=== PATIENT | female | born 1990 | race Caucasian/White ===

== ENCOUNTER 2020-03-21 23:31 | Emergency (ER) | payer SELFPAY ==
[~2020-03-21] VITALS: Ht 160 cm; Wt 106.8 kg
[~2020-03-21 23:31] MED LIST: CEPH500T PO; Depo Provera; PHEN-639 PO; SULF1TAB35 PO
--- OUTSIDE RECORDS SUMMARY | 2020-03-21 23:39 | XMS REPORT ---
Author Author Cari Gutierrez Doctor Organization [facility] Address Unknown Phone Unavailable Care Team Providers Care Prison Warden Name Role Phone Migration, Doctor Unavailable Unavailable PROBLEMS Type Condition ICD9-CM Code MOH24-OR Code Onset Dates Condition S tatus SNOMED Code Problem Non morbid obesity due to excess calories E66.09 Active 789815453 Problem PTSD (post-traumatic stress disorder) F43.10 Active 21285623 Problem Anxiety disorder, unspecified type F41.9 Active 943113115 Problem Attention deficit hyperactiv ity disorder (ADHD), predominantly inattentive type F90.0 Active 03621993 Problem Anxiety F41.9 Active 84872946 Problem Binge eating R63.2 Active 3972433 05 Problem Moderate episode of recurrent major depressive disorder F33.1 Active 767973314 Problem Binge eating disorder F50.81 Active 617686673 ALLERGIES No Information ENCOUNTERS Encounter Location Date Diagnosis [facility] [id number] [place] [address] Aug, [facility] [address] [place] [address] 9 Jun, [facility] [id number] [place] [address] Jun, PTSD (post-traumatic stress disorder) F4 3.10 ; Moderate episode of recurrent major depressive disorder F33.1 ; Binge eating disorder F50.81 ; Attention deficit hyperactivity disorder (ADHD), predominantly inattentive type F90.0 and 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 Z79.899 [place] [address] [place] [address]86[address]446 9 May, [facility] [address] [place] [address] 9 Apr, [place] [address] [place] [address] 9 Nov, Attention deficit hyperactivity disorder (ADHD), predominantly inattentive type F90.0 and Moderate episode of recurrent major depressive disorder F33.1 [facility] [address] [place] [id number] [address] Sep, Moderate episode of recurrent major depressive disorder F33.1 ; Anxiety F41.9 and Attention deficit hyperactivity disorder (ADHD), predominantly inattentive type F90.0 [facility] [address] [place] [id number] [address] Sep, Acute otitis media, right H66.91 and Dysfunction of left eustachian tube H69.82 [address] [address] [address] Apr, Cervicalgia M54.2 ; Screening for thyroi d disorder Z13.29 and Screening for diabetes mellitus Z13.1 [place] [address] [address] Apr, PTSD (post-traumatic stress disorder) F4 3.10 ; Moderate episode of recurrent major depressive disorder F33.1 ; Binge eating disorder F50.81 and Attention deficit hyperactivity disorder (ADHD), predominantly inattentive type F90.0 [place] [address] [address] Feb, PTSD (post-traumatic stress disorder) F4 3.10 ; Moderate episode of recurrent major depressive disorder F33.1 ; Binge eating disorder F50.81 and Attention deficit hyperactivity disorder (ADHD), predominantly inattentive type F90.0 [place] [address] [address] Feb, PTSD (post-traumatic stress disorder) F4 3.10 [place] [address] [address] January, PTSD (post-traumatic stress disorder) F4 3.10 ; Moderate episode of recurrent major depressive disorder F33.1 ; Binge eating disorder F50.81 and Attention deficit hyperactivity disorder (ADHD), predominantly inattentive type F90.0 [place] [address] [address] January, PTSD (post-traumatic stress disorder) F4 3.10 [place] [address] [address] Dec, PTSD (post-traumatic stress disorder) F4 3.10 ; Moderate episode of recurrent major depressive disorder F33.1 ; Binge eating disorder F50.81 ; Attention deficit hyperactivity disorder (ADHD), predominantly inattentive type F90.0 and Anxiety disorder, unspecified type F41.9 [place] [address] [address] Nov, PTSD (post-traumatic stress disorder) F4 3.10 [place] [address] [address] Aug, [place] [address] [address] Aug, PTSD (post-traumatic stress disorder) F4 3.10 ; Moderate episode of recurrent major depressive disorder F33.1 ; Binge eating disorder F50.81 ; Attention deficit hyperactivity disorder (ADHD), predominantly inattentive type F90.0 and Anxiety disorder, unspecified type F41.9 [place] [address] [address] Jul, PTSD (post-traumatic stress disorder) F4 3.10 ; Moderate episode of recurrent major depressive disorder F33.1 ; Binge eating disorder F50.81 ; Attention deficit hyperactivity disorder (ADHD), predominantly inattentive type F90.0 and Anxiety disorder, unspecified type F41.9 [place] [address] [address] Jun, PTSD (post-traumatic stress disorder) F4 3.10 ; Moderate episode of recurrent major depressive disorder F33.1 ; Binge eating disorder F50.81 ; Attention deficit hyperactivity disorder (ADHD), predominantly inattentive type F90.0 and Anxiety disorder, unspecified type F41.9 [place] [id number] [place] [address] May, Attention deficit hyperactivity disorder (ADHD), predominantly inattentive type F90.0 [place] [address] [address] Apr, PTSD (post-traumatic stress disorder) F4 3.10 ; Moderate episode of recurrent major depressive disorder F33.1 ; Binge eating disorder F50.81 ; Attention deficit hyperactivity disorder (ADHD), predominantly inattentive type F90.0 and Anxiety disorder, unspecified type F41.9 [place] [address] [address] Apr, PTSD (post-traumatic stress disorder) F4 3.10 ; Moderate episode of recurrent major depressive disorder F33.1 and Binge eating disorder F50.81 [place] [address] [address] Mar, Moderate episode of recurrent major depr essive disorder F33.1 [place] [address] [address] January, Moderate episode of recurrent major depr essive disorder F33.1 [place] [address] [address] Dec, Anxiety F41.9 ; Binge eating R63.2 and N on morbid obesity due to excess calories E66.09 [place] [address] [address] Sep, PTSD (post-traumatic stress disorder) F4 3.10 ; Non morbid obesity due to excess calories E66.09 and Weight gain R63.5 [place] [id number] [place] [address] Sep, [facility] [address] [facility] [id number] [place] [address] January, Fecal impaction of colon K56 .41 [place] [address] [address] Apr, Dysthymia 300.4 [place] [address] [address] Mar, [place] [address] [address] January, [facility] [address] [id number] [place] [address] Dec, [facility] [address] [id number] [place] [address] Dec, [facility] [address] [id number] [place] [address] Oct, [facility] [address] [id number] [place] [address] Oct, [facility] [address] [id number] [place] [address] Jul, [facility] [address] [id number] [place] [address] Jul, [facility] [address] [id number] [place] [address] Apr, [facility] [address] [id number] [place] [address] Apr, [facility] [address] [id number] [place] [address] Mar, [facility] [address] [id number] [place] [address] Mar, [facility] [address] [id number] [place] [address] Mar, [facility] [address] [id number] [place] [address] Mar, [facility] [address] [id number] [place] [address] Mar, [facility] [address] [id number] [place] [address] Mar, [facility] [address] [id number] [place] [address] Feb, [facility] [address] [id number] [place] [address] Dec, [facility] [address] [id number] [place] [address] Dec, [facility] [address] [id number] [place] [address] Nov, [facility] [address] [id number] [place] [address] Sep, [facility] [id number] [place] [address] Sep, [facility] [id number] [place] [address] Apr, [facility] [id number] [place] [address] Dec, [facility] [id number] [place] [address] Nov, [facility] [id number] [place] [address] Jul, [facility] [id number] [place] [address] Jul, [facility] [id number] [place] [address] January, [facility] [id number] [place] [address] January, [facility] [id number] [place] [address] Dec, [facility] [id number] [place] [address] Sep, IMMUNIZATIONS No Known Immunizations SOCIAL HISTORY Never Assessed REASON FOR VISIT PLAN OF CARE VITAL SIGNS MEDICATIONS Unknown Medications RESULTS No Results PROCEDURES No Known procedures INSTRUCTIONS MEDICATIONS ADMINISTERED No Known Medications MEDICAL (GENERAL) HISTORY Type Description Date Medical History depression Medical History PTSD Medical History obesity Medical History denies any hx of heart problem or seizur e 05/14/17 Medical History hx of anemia Surgical History No Surgical history information Hospitalization History childbirth only Hospitalization History Denies any past psych hospitalizatio n
--- OUTSIDE RECORDS SUMMARY | 2020-03-21 23:39 | XMS REPORT ---
Author Author Cari GARCIA Organization [facility] Address [address] [address] Care Team Providers Care Bus Inspector Name Role Phone ANTONIO GARCIA Unavailable PROBLEMS Type Condition ICD9-CM Code ZIN39-NG Code Onset Dates Condition S tatus SNOMED Code Problem Non morbid obesity due to excess calories E66.09 Active 523829176 Problem PTSD (post-traumatic stress disorder) F43.10 Active 29109254 Problem Anxiety disorder, unspecified type F41.9 Active 124550096 Problem Attention deficit hyperactiv ity disorder (ADHD), predominantly inattentive type F90.0 Active 62183780 Problem Anxiety F41.9 Active 52457011 Problem Binge eating R63.2 Active 7718819 05 Problem Moderate episode of recurrent major depressive disorder F33.1 Active 247326090 Problem Binge eating disorder F50.81 Active 566684030 ALLERGIES No Known Allergies ENCOUNTERS Encounter Location Date Diagnosis [place] [address] [place] [address] Nov, [facility] [place] [id number] [place] [address] Aug, [facility] [address] [place] [address] 9 Jun, [facility] [place] [address] [address] Jun, PTSD (post-traumatic stress disorder) F4 3.10 ; Moderate episode of recurrent major depressive disorder F33.1 ; Binge eating disorder F50.81 ; Attention deficit hyperactivity disorder (ADHD), predominantly inattentive type F90.0 and Other residential (current) drug therapy Z79.899 [address] [place] [address] May, [address] [place] [place] [id number] [address] Apr, [facility] [address] [place] [address] Nov, Attention deficit hyperactivity disorder (ADHD), predominantly inattentive type F90.0 and Moderate episode of recurrent major depressive disorder F33.1 [facility] [address] [id number] [address] Sep, Moderate episode of recurrent major depressive disorder F33.1 ; Anxiety F41.9 and Attention deficit hyperactivity disorder (ADHD), predominantly inattentive type F90.0 [facility] [address] [place] [id number] [address] Sep, Acute otitis media, right H66.91 and Dysfunction of left eustachian tube H69.82 [place] [address] [address] [address] Apr, Cervicalgia M54.2 ; Screening for thyroi d disorder Z13.29 and Screening for diabetes mellitus Z13.1 [place] [address] [address] Apr, PTSD (post-traumatic stress disorder) F4 3.10 ; Moderate episode of recurrent major depressive disorder F33.1 ; Binge eating disorder F50.81 and Attention deficit hyperactivity disorder (ADHD), predominantly inattentive type F90.0 [address] [address] [address] Feb, PTSD (post-traumatic stress disorder) F4 3.10 ; Moderate episode of recurrent major depressive disorder F33.1 ; Binge eating disorder F50.81 and Attention deficit hyperactivity disorder (ADHD), predominantly inattentive type F90.0 [address] [address] [address] Feb, PTSD (post-traumatic stress disorder) F4 3.10 [address] [address] [address] January, PTSD (post-traumatic stress disorder) F4 3.10 ; Moderate episode of recurrent major depressive disorder F33.1 ; Binge eating disorder F50.81 and Attention deficit hyperactivity disorder (ADHD), predominantly inattentive type F90.0 [address] [address] [address] January, PTSD (post-traumatic stress disorder) F4 3.10 [address] [address] [address] Dec, PTSD (post-traumatic stress disorder) F4 3.10 ; Moderate episode of recurrent major depressive disorder F33.1 ; Binge eating disorder F50.81 ; Attention deficit hyperactivity disorder (ADHD), predominantly inattentive type F90.0 and Anxiety disorder, unspecified type F41.9 [address] [address] [address] Nov, PTSD (post-traumatic stress disorder) F4 3.10 [address] [address] [address] Aug, [address] [address] [address] Aug, PTSD (post-traumatic stress disorder) F4 3.10 ; Moderate episode of recurrent major depressive disorder F33.1 ; Binge eating disorder F50.81 ; Attention deficit hyperactivity disorder (ADHD), predominantly inattentive type F90.0 and Anxiety disorder, unspecified type F41.9 [address] [address] [address] Jul, PTSD (post-traumatic stress disorder) F4 3.10 ; Moderate episode of recurrent major depressive disorder F33.1 ; Binge eating disorder F50.81 ; Attention deficit hyperactivity disorder (ADHD), predominantly inattentive type F90.0 and Anxiety disorder, unspecified type F41.9 [place] [address] [address] Jun, PTSD (post-traumatic stress disorder) F4 3.10 ; Moderate episode of recurrent major depressive disorder F33.1 ; Binge eating disorder F50.81 ; Attention deficit hyperactivity disorder (ADHD), predominantly inattentive type F90.0 and Anxiety disorder, unspecified type F41.9 [address] [address] [address] May, Attention deficit hyperactivity disorder (ADHD), predominantly inattentive type F90.0 [address] [address] [address] Apr, PTSD (post-traumatic stress disorder) F4 3.10 ; Moderate episode of recurrent major depressive disorder F33.1 ; Binge eating disorder F50.81 ; Attention deficit hyperactivity disorder (ADHD), predominantly inattentive type F90.0 and Anxiety disorder, unspecified type F41.9 [address] [address] [address] 16 Apr, 2017 PTSD (post-traumatic stress disorder) F4 3.10 ; Moderate episode of recurrent major depressive disorder F33.1 and Binge eating disorder F50.81 [place] [address] [address] Mar, Moderate episode of recurrent major depr essive disorder F33.1 [place] [address] [address] January, Moderate episode of recurrent major depr essive disorder F33.1 [place] [address] [address] Dec, Anxiety F41.9 ; Binge eating R63.2 and N on morbid obesity due to excess calories E66.09 [place] [address] [address] Sep, PTSD (post-traumatic stress disorder) F4 3.10 ; Non morbid obesity due to excess calories E66.09 and Weight gain R63.5 [address] [address] [address] Sep, [facility] [address] [facility] [id number] [place] [address] January, Fecal impaction of colon K56 .41 [address] [address] [address] Apr, Dysthymia 300.4 [facility] [address] [id number] [place] [address] Mar, [facility] [address] [id number] [place] [address] January, [facility] [address] [id number] [place] [address] Dec, [facility] [address] [id number] [place] [address] Dec, [facility] [address] [id number] [place] [address] Oct, [facility] [address] [id number] [place] [address] Oct, [facility] [address] [id number] [place] [address] Jul, [facility] [address] [id number] [place] [address] Jul, [facility] [address] [id number] [place] [address] Apr, [facility] [address] [id number] [place] [address] Apr, [facility] [address] [id number] [place] [address] Mar, [facility] [address] [id number] [place] [address] Mar, [facility] [address] [id number] [place] [address] Mar, [facility] [address] [id number] [place] [address] Mar, [facility] [address] [id number] [place] [address] Mar, [facility] [address] [id number] [place] [address] Mar, [facility] [address] [id number] [place] [address] Feb, [facility] [place] [id number] [place] [address] Dec, [facility] [place] [id number] [place] [address] Dec, [facility] [place] [id number] [place] [address] Nov, [facility] [place] [id number] [place] [address] Sep, [facility] [place] [id number] [place] [address] Sep, [facility] [place] [id number] [place] [address] Apr, [facility] [place] [id number] [place] [address] Dec, [facility] [place] [id number] [place] [address] Nov, [facility] [place] [id number] [place] [address] Jul, [facility] [place] [id number] [place] [address] Jul, [facility] [place] [id number] [place] [address] January, [facility] [place] [id number] [place] [address] January, [facility] [place] [id number] [place] [address] Dec, [facility] [place] [id number] [place] [address] Sep, IMMUNIZATIONS No Known Immunizations SOCIAL HISTORY Never Assessed REASON FOR VISIT Medication Refill, MEd refill, discuss increasing Concerta. MEGHANA Johnson PLAN OF CARE Activity Details Follow Up 3 Months Reason:med mgmt VITAL SIGNS Height 64 in 2018-12-06 Weight 227 lbs 2018-12-06 Temperature 98.2 degrees Fahrenheit 2018-12-06 Heart Rate 80 bpm 2018-12-06 Respiratory Rate 16 2018-12-06 BMI 38.96 kg/m2 2018-12-06 Blood pressure systolic 124 mmHg 2018-12-06 Blood pressure diastolic 72 mmHg 2018-12-06 MEDICATIONS Medication Instructions Dosage Frequency Start Date End Date Duration S tatus Concerta 36 MG Orally Once a day 1 tablet in the morning 24h Nov, 28 days Active Effexor XR 75 MG Orally Once a day 1 capsule with food 24h 30 Active RESULTS No Results PROCEDURES No Known procedures [...]
--- OUTSIDE RECORDS SUMMARY | 2020-03-21 23:39 | XMS REPORT ---
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 Name Role Phone Migration, Doctor Unavailable Unavailable PROBLEMS Type Condition ICD9-CM Code [id number] Code Onset Dates Condition S tatus SNOMED Code Problem PTSD (post-traumatic stress disorder) F43.10 Active 62591153 Problem Anxiety F41.9 Active 63160742 Problem Body mass index (BMI) 40.0-44.9, adult Z68.41 Active 679572534 Problem Morbid (severe) obesity due to excess calories E66 .01 Active 298705721 Problem Moderate episode of recurrent major depressive disorder F33.1 Active 959342530 Problem Binge eating disorder F50.81 Active 904695861 Problem Attention deficit hyperactiv ity disorder (ADHD), predominantly inattentive type F90.0 Active 62533781 Problem Gastroesophageal reflux disease, esophagitis pre sence not specified K21.9 Active 814959755 ALLERGIES No Information ENCOUNTERS Encounter Location Date Diagnosis [facility] [address] [facility] [id number] [address] [place] [address] Mar, [facility] [address] [facility] [id number] [place] [address] Feb, Fatigue, unspecified type R53.83 [facility] [address] [id number] [place] [address] Feb, Morbid (severe) obesity due to excess calories E66.01 and Fatigue, unspecified type R53.83 [facility] [id number] [place] [address] 02 Feb, 2020 Moderate episode of recurrent major depressive disorder F33.1 ; Binge eating disorder F50.81 ; PTSD (post-traumatic stress disorder) F43.10 ; Encounter for Depo-Provera contraception Z30.42 ; Morbid (severe) obesity due to excess calories E66.01 ; Body mass index (BMI) 40.0-44.9, adult Z68.41 ; Fatigue, unspecified type R53.83 ; Depo-Provera contraceptive status Z30.42 and Gastroesophageal reflux disease, esophagitis presence not specified K21.9 [facility] [address] [facility] [id number] [address] [place] [phone] Dec, Cough R05 [facility] [address] [place], [place] [id number] [place] [phone] Nov, [facility] [address] [place] [id number] [address] [place] [phone] Aug, [facility] [address] [place] [id number] [place] [phone] Jun, [facility] [id number] [place] [phone] Jun, PTSD (post-traumatic stress disorder) F43.10 ; Moderate episode of recurrent major depressive disorder F33.1 ; Binge eating disorder F50.81 ; Attention deficit hyperactivity disorder (ADHD), predominantly inattentive type F90.0 and 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 [facility] [address] [place] [id number] [place] [phone] May, [facility] [address] [place] [id number] [place] [phone] Apr, [facility] [address] [facility] [id number] [place] [phone] Nov, Attention deficit hyperactivity disorder (ADHD), predominantly inattentive type F90.0 and Moderate episode of recurrent major depressive disorder F33.1 [facility] [address] [place], [place] [id number] [place] [phone] Sep, Moderate episode of recurrent major depr essive disorder F33.1 ; Anxiety F41.9 and Attention deficit hyperactivity disorder (ADHD), predominantly inattentive type F90.0 [facility] [address] [place], [place] [id number] [place] [phone] Sep, Acute otitis media, right H66.91 and Dys function of left eustachian tube H69.82 [place] [address] [facility] [id number] [address] [place] [phone] Apr, Cervicalgia M54.2 ; Screenin g for thyroid disorder Z13.29 and Screening for diabetes mellitus Z13.1 [place] [address] [place] [id number] [address] [place] [phone] Apr, PTSD (post-traumatic stress disorder) F43.10 ; Moderate episode of recurrent major depressive disorder F33.1 ; Binge eating disorder F50.81 and Attention deficit hyperactivity disorder (ADHD), predominantly inattentive type F90.0 [place] [address] [place] [id number] [address] [place] [phone] Feb, PTSD (post-traumatic stress disorder) F43.10 ; Moderate episode of recurrent major depressive disorder F33.1 ; Binge eating disorder F50.81 and Attention deficit hyperactivity disorder (ADHD), predominantly inattentive type F90.0 [place] [address] [place] [id number] [address] [place] [phone] Feb, PTSD (post-traumatic stress disorder) F43.10 [place] [address] [place] [id number] [address] [place] [phone] January, PTSD (post-traumatic stress disorder) F43.10 ; Moderate episode of recurrent major depressive disorder F33.1 ; Binge eating disorder F50.81 and Attention deficit hyperactivity disorder (ADHD), predominantly inattentive type F90.0 [place] [address] [place] [id number] [address] [place] [phone] January, PTSD (post-traumatic stress disorder) F43.10 [place] [address] [place] [id number] [address] [place] [phone] Dec, PTSD (post-traumatic stress disorder) F43.10 ; Moderate episode of recurrent major depressive disorder F33.1 ; Binge eating disorder F50.81 ; Attention deficit hyperactivity disorder (ADHD), predominantly inattentive type F90.0 and Anxiety disorder, unspecified type F41.9 [place] [address] [place] [id number] [address] [place] [phone] Nov, PTSD (post-traumatic stress disorder) F43.10 [place] [address] [place] [id number] [address] [place] [phone] Aug, [place] [address] [place] [id number] [address] [place] [phone] Aug, PTSD (post-traumatic stress disorder) F43.10 ; Moderate episode of recurrent major depressive disorder F33.1 ; Binge eating disorder F50.81 ; Attention deficit hyperactivity disorder (ADHD), predominantly inattentive type F90.0 and Anxiety disorder, unspecified type F41.9 [place] [address] [address] Jul, PTSD (post-traumatic stress disorder) F43.10 ; Moderate episode of recurrent major depressive disorder F33.1 ; Binge eating disorder F50.81 ; Attention deficit hyperactivity disorder (ADHD), predominantly inattentive type F90.0 and Anxiety disorder, unspecified type F41.9 [place] [address] [place] [id number] [address] [place] [phone] Jun, PTSD (post-traumatic stress disorder) F43.10 ; Moderate episode of recurrent major depressive disorder F33.1 ; Binge eating disorder F50.81 ; Attention deficit hyperactivity disorder (ADHD), predominantly inattentive type F90.0 and Anxiety disorder, unspecified type F41.9 [place] [address] [place] [id number] [address] [place] [phone] May, Attention deficit hyperactiv ity disorder (ADHD), predominantly inattentive type F90.0 [place] [address] [place] [id number] [address] [place] [phone] Apr, PTSD (post-traumatic stress disorder) F43.10 ; Moderate episode of recurrent major depressive disorder F33.1 ; Binge eating disorder F50.81 ; Attention deficit hyperactivity disorder (ADHD), predominantly inattentive type F90.0 and Anxiety disorder, unspecified type F41.9 [place] [address] [place] [id number] [address] [place] [phone] Apr, PTSD (post-traumatic stress disorder) F43.10 ; Moderate episode of recurrent major depressive disorder F33.1 and Binge eating disorder F50.81 [facility] [address] [facility] [id number] [address] [place] [phone] Mar, Moderate episode of recurren t major depressive disorder F33.1 [facility] [address] [place] [id number] [address] [place] [phone] January, Moderate episode of recurren t major depressive disorder F33.1 [facility] [address] [facility] [id number] [address] [place] [phone] Dec, Anxiety F41.9 ; Binge eating R63.2 and Non morbid obesity due to excess calories E66.09 [facility] [address] [place] [id number] [address] [place] [phone] Sep, PTSD (post-traumatic stress disorder) F43.10 ; Non morbid obesity due to excess calories E66.09 and Weight gain R63.5 [facility] [address] [place] [id number] [address] [place] [phone] Sep, [facility] [address] [facility] [id number] [address] [place] [phone] January, Fecal impaction of colon K56 .41 [facility] [address] [facility] [id number] [address] [place] [phone] Apr, Dysthymia 300.4 [facility] [address] [facility] [id number] [address] [place] [phone] Mar, [facility] [address] [facility] [id number] [address] [place] [phone] January, [facility] [address] [place] [id number] [address] [place] [phone] Dec, [facility] [address] [place] [id number] [address] [place] [phone] Dec, [facility] [address] [id number] [address] [place] [address], [place] [address] Oct, [facility] [address] [id number] [address] [place] [address], [place] [address] Oct, [facility] [address] [id number] [address] [place] [address], [place] [address] Jul, [facility] [address] [id number] [address] [place] [address], [place] [address] Jul, [facility] [address] [id number] [address] [place] [address], [place] [address] Apr, [facility] [address] [id number] [address] [place] [address], [place] [address] Apr, [facility] [address] [id number] [address] [place] [address], [place] [address] Mar, [facility] [address] [id number] [address] [place] [address], [place] [address] Mar, [facility] [address] [id number] [address] [place] [address], [place] [address] Mar, [facility] [address] [id number] [address] [place] [address], [place] [address] Mar, [facility] [address] [id number] [address] [place] [address], [place] [address] Mar, [facility] [address] [id number] [address] [place] [address], [place] [address] Mar, [facility] [address] [id number] [address] [place] [address], [place] [address] Feb, [facility] [address] [id number] [address] [place] [address], [place] [address] Dec, [facility] [address] [id number] [address] [place] [address], [place] [address] Dec, [facility] [address] [id number] [address] [place] [address], [place] [address] Nov, [facility] [address] [id number] [address] [place] [phone] Sep, [facility] [address] [id number] [address] [place] [phone] Sep, [facility] [address] [id number] [address] [place] [phone] Apr, [facility] [address] [id number] [address] [place] [phone] Dec, [facility] [address] [id number] [address] [place] [phone] Nov, [facility] [address] [id number] [address] [place] [phone] Jul, [facility] [address] [id number] [address] [place] [phone] Jul, [facility] [address] [id number] [address] [place] [phone] January, [facility] [address] [id number] [address] [place] [phone] January, [facility] [address] [id number] [address] [place] [phone] Dec, [facility] [address] [id number] [address] [place] [phone] Sep, IMMUNIZATIONS No Known Immunizations SOCIAL HISTORY Never Assessed REASON FOR VISIT PLAN OF CARE VITAL SIGNS MEDICATIONS Unknown Medications RESULTS No Results PROCEDURES Procedure Date Ordered Result Body Site THER/PROPH/DIAG INJ, SC/IM February 23, 2013 Medroxyprogesterone inj February 23, 2013 URINE TEST February 23, 2013 INSTRUCTIONS MEDICATIONS ADMINISTERED No Known Medications MEDICAL (GENERAL) HISTORY Type Description Date Medical History depression Medical History PTSD Medical History obesity Medical History denies any hx of heart problem or seizur e 05/14/17 Medical History hx of anemia Surgical History No know Surgical history Hospitalization History childbirth only Hospitalization History Denies any past psych hospitalizatio n
--- OUTSIDE RECORDS SUMMARY | 2020-03-21 23:40 | XMS REPORT ---
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 Role Phone DAIR High Unavailable PROBLEMS Type Condition ICD9-CM Code EKN10-IC Code Onset Dates Condition S tatus SNOMED Code Problem Non morbid obesity due to excess calories E66.09 Active 193760037 Problem PTSD (post-traumatic stress disorder) F43.10 Active 28206811 Problem Anxiety disorder, unspecified type F41.9 Active 770235007 Problem Attention deficit hyperactiv ity disorder (ADHD), predominantly inattentive type F90.0 Active 41482240 Problem Anxiety F41.9 Active 76288681 Problem Binge eating R63.2 Active 8056676 05 Problem Moderate episode of recurrent major depressive disorder F33.1 Active 567868609 Problem Binge eating disorder F50.81 Active 055441290 ALLERGIES No Information ENCOUNTERS Encounter Location Date Diagnosis [facility] [address] [place] [phone] Apr [place] [address] [place] [address] Nov Attention deficit hyperactivity disorder (ADHD), predominantly inattentive type F90.0 and Moderate episode of recurrent major depressive disorder F33.1 [facility] [address] [place] [address] Sep Moderate episode of recurrent major depressive disorder F33.1 ; Anxiety F41.9 and Attention deficit hyperactivity disorder (ADHD), predominantly inattentive type F90.0 [place] [address] [place] [address] Sep Acute otitis media, right H66.91 and Dysfunction of left eustachian tube H69.82 [facility] [address] [facility] [id number] [place] [address] Apr, Cervicalgia M54.2 ; Screenin g for thyroid disorder Z13.29 and Screening for diabetes mellitus Z13.1 [place] [address] [place] [id number] [address] [place] [address] Apr, PTSD (post-traumatic stress disorder) F43.10 ; Moderate episode of recurrent major depressive disorder F33.1 ; Binge eating disorder F50.81 and Attention deficit hyperactivity disorder (ADHD), predominantly inattentive type F90.0 [place] [address] [place] [id number] [address] [place] [address] Feb, PTSD (post-traumatic stress disorder) F43.10 ; Moderate episode of recurrent major depressive disorder F33.1 ; Binge eating disorder F50.81 and Attention deficit hyperactivity disorder (ADHD), predominantly inattentive type F90.0 [place] [address] [place] [id number] [address] [place] [phone] Feb, PTSD (post-traumatic stress disorder) F43.10 [place] [address] [place] [id number] [place] [address] January, PTSD (post-traumatic stress disorder) F43.10 ; Moderate episode of recurrent major depressive disorder F33.1 ; Binge eating disorder F50.81 and Attention deficit hyperactivity disorder (ADHD), predominantly inattentive type F90.0 [place] [address] [place] [id number] [address] [place] [address] January, PTSD (post-traumatic stress disorder) F43.10 [place] [address] [place] [id number] [address] [place] [address] Dec, PTSD (post-traumatic stress disorder) F43.10 ; Moderate episode of recurrent major depressive disorder F33.1 ; Binge eating disorder F50.81 ; Attention deficit hyperactivity disorder (ADHD), predominantly inattentive type F90.0 and Anxiety disorder, unspecified type F41.9 [place] [address] [place] [id number] [address] [place] [address] Nov, PTSD (post-traumatic stress disorder) F43.10 [place] [address] [place] [id number] [address] [place] [phone] Aug, [facility] [address] [address] Aug, PTSD (post-traumatic stress disorder) F43.10 ; Moderate episode of recurrent major depressive disorder F33.1 ; Binge eating disorder F50.81 ; Attention deficit hyperactivity disorder (ADHD), predominantly inattentive type F90.0 and Anxiety disorder, unspecified type F41.9 [place] [address] [place] [id number] [address] [place] [address] Jul, PTSD (post-traumatic stress disorder) F43.10 ; Moderate episode of recurrent major depressive disorder F33.1 ; Binge eating disorder F50.81 ; Attention deficit hyperactivity disorder (ADHD), predominantly inattentive type F90.0 and Anxiety disorder, unspecified type F41.9 [place] [address] [place] [id number] [address] [place] [phone] Jun, PTSD (post-traumatic stress disorder) F43.10 ; Moderate episode of recurrent major depressive disorder F33.1 ; Binge eating disorder F50.81 ; Attention deficit hyperactivity disorder (ADHD), predominantly inattentive type F90.0 and Anxiety disorder, unspecified type F41.9 [place] [address] [place] [id number] [address] [place] [phone] May, Attention deficit hyperactiv ity disorder (ADHD), predominantly inattentive type F90.0 [place] [address] [place] [id number] [address] [place] [address] Apr, PTSD (post-traumatic stress disorder) F43.10 ; Moderate episode of recurrent major depressive disorder F33.1 ; Binge eating disorder F50.81 ; Attention deficit hyperactivity disorder (ADHD), predominantly inattentive type F90.0 and Anxiety disorder, unspecified type F41.9 [place] [address] [place] [id number] [address] [place] [phone] 16 Apr, 2017 PTSD (post-traumatic stress disorder) F43.10 ; Moderate episode of recurrent major depressive disorder F33.1 and Binge eating disorder F50.81 [facility] [address] [facility] [id number] [address] [place] [phone] 13 Mar, 2017 Moderate episode of recurren t major depressive disorder F33.1 [facility] [address] [facility] [id number] [address] [place] [phone] 18 Jan, 2017 Moderate episode of recurren t major depressive disorder F33.1 [facility] [address] [facility] [id number] [address] [place] [phone] 04 Dec, 2016 Anxiety F41.9 ; Binge eating R63.2 and Non morbid obesity due to excess calories E66.09 [facility] [address] [facility] [id number] [address] [place] [address] Sep, PTSD (post-traumatic stress disorder) F43.10 ; Non morbid obesity due to excess calories E66.09 and Weight gain R63.5 [facility] [address] [place] [id number] [address] [place] [phone] Sep, [facility] [address] [facility] [id number] [address] [place] [address] January, Fecal impaction of colon K56 .41 [facility] [address] [facility] [id number] [address] [place] [address] Apr, Dysthymia 300.4 [facility] [address] [facility] [id number] [address] [place] [phone] Mar, [facility] [address] [facility] [id number] [address] [place] [phone] January, [facility] [address] [facility] [id number] [address] [place] [phone] Dec, [facility] [address] [facility] [id number] [address] [place] [phone] Dec, [facility] [address] [facility] [id number] [address] [place] [phone] Oct, [facility] [address] [id number] [address] [place] [address], [place] [address] 05 Oct, 2014 [facility] [address] [id number] [address] [place] [address], [place] [address] Jul, [facility] [address] [id number] [address] [place] [address], [place] [address] Jul, [facility] [address] [id number] [address] [place] [address], [place] [address] Apr, [facility] [address] [id number] [address] [place] [address], [place] [address] Apr, [facility] [address] [id number] [address] [place] [address], [place] [address] Mar, [facility] [address] [id number] [address] [place] [address], [place] [address] Mar, [facility] [address] [id number] [address] [place] [address], [place] [address] Mar, [facility] [address] [id number] [address] [place] [address], [place] [address] Mar, [facility] [address] [id number] [address] [place] [address], [place] [address] Mar, [facility] [address] [id number] [address] [place] [address], [place] [address] Mar, [facility] [address] [id number] [address] [place] [address], [place] [address] Feb, [facility] [address] [id number] [address] [place] [address], [place] [address] Dec, [facility] [address] [id number] [address] [place] [address], [place] [address] Dec, [facility] [address] [id number] [address] [place] [address], [place] [address] Nov, [facility] [address] [id number] [address] [place] [address], [place] [address] Sep, [facility] [address] [id number] [address] [place] [phone] Sep, [facility] [address] [id number] [address] [place] [phone] Apr, [facility] [address] [id number] [address] [place] [phone] Dec, [facility] [address] [id number] [address] [place] [phone] Nov, [facility] [address] [id number] [address] [place] [phone] Jul, [facility] [address] [id number] [address] [place] [phone] Jul, [facility] [address] [id number] [address] [place] [phone] January, [facility] [address] [id number] [address] [place] [phone] January, [facility] [address] [id number] [address] [place] [phone] Dec, [facility] [address] [facility] [id number] [address] [place] [phone] Sep, IMMUNIZATIONS No Known Immunizations SOCIAL HISTORY Never Assessed REASON FOR VISIT PLAN OF CARE VITAL SIGNS Height 64 in 2014-07-20 Weight 204 lbs 2014-07-20 Temperature 97.5 degrees Fahrenheit 2014-07-20 Heart Rate 105 bpm 2014-07-20 Respiratory Rate 20 2014-07-20 Blood pressure systolic 116 mmHg 2014-07-20 Blood pressure diastolic 80 mmHg 2014-07-20 MEDICATIONS Unknown Medications RESULTS No Results PROCEDURES Procedure Date Ordered Result Body Site THER/PROPH/DIAG INJ, SC/IM Jul 20, 2014 Medroxyprogesterone inj Jul 20, 2014 URINE TEST Jul 20, 2014 INSTRUCTIONS MEDICATIONS ADMINISTERED No Known Medications MEDICAL (GENERAL) HISTORY Type Description Date Medical History depression Medical History PTSD Medical History obesity Medical History denies any hx of heart problem or seizur e 05/14/17 Medical History hx of anemia Hospitalization History childbirth only Hospitalization History Denies any past psych hospitalizatio n
--- OUTSIDE RECORDS SUMMARY | 2020-03-21 23:40 | XMS REPORT ---
Author Author Cari Gutierrez Doctor Organization [facility] Address Unknown Phone Unavailable Care Team Providers Care Production Technologist Name Role Phone Migration, Doctor Unavailable Unavailable PROBLEMS Type Condition ICD9-CM Code CBZ99-DE Code Onset Dates Condition S tatus SNOMED Code Problem Non morbid obesity due to excess calories E66.09 Active 369126752 Problem PTSD (post-traumatic stress disorder) F43.10 Active 97594544 Problem Anxiety disorder, unspecified type F41.9 Active 001323082 Problem Attention deficit hyperactiv ity disorder (ADHD), predominantly inattentive type F90.0 Active 30535053 Problem Anxiety F41.9 Active 95482387 Problem Binge eating R63.2 Active 4015896 05 Problem Moderate episode of recurrent major depressive disorder F33.1 Active 214976276 Problem Binge eating disorder F50.81 Active 450043912 ALLERGIES No Information ENCOUNTERS Encounter Location Date Diagnosis [facility] [address] [place] [address] Nov Attention deficit hyperactivity disorder (ADHD), predominantly inattentive type F90.0 and Moderate episode of recurrent major depressive disorder F33.1 [place] [address] [place] [address] Sep Moderate episode of recurrent major depressive disorder F33.1 ; Anxiety F41.9 and Attention deficit hyperactivity disorder (ADHD), predominantly inattentive type F90.0 [facility] [address] [place] [address] Sep Acute otitis media, right H66.91 and Dysfunction of left eustachian tube H69.82 [facility] [address] [place] [id number] [address] [place] [address] Apr, Cervicalgia M54.2 ; Screenin g for thyroid disorder Z13.29 and Screening for diabetes mellitus Z13.1 [facility] [address] [facility] [id number] [address] [place] [address] Apr, PTSD (post-traumatic stress disorder) F43.10 ; Moderate episode of recurrent major depressive disorder F33.1 ; Binge eating disorder F50.81 and Attention deficit hyperactivity disorder (ADHD), predominantly inattentive type F90.0 [facility] [address] [facility] [id number] [address] [place] [phone] Feb, PTSD (post-traumatic stress disorder) F43.10 ; Moderate episode of recurrent major depressive disorder F33.1 ; Binge eating disorder F50.81 and Attention deficit hyperactivity disorder (ADHD), predominantly inattentive type F90.0 [facility] [address] [id number] [address] [place] [address] Feb, PTSD (post-traumatic stress disorder) F43.10 [place] [address] [facility] [id number] [address] [place] [phone] January, PTSD (post-traumatic stress disorder) F43.10 ; Moderate episode of recurrent major depressive disorder F33.1 ; Binge eating disorder F50.81 and Attention deficit hyperactivity disorder (ADHD), predominantly inattentive type F90.0 [facility] [address] [facility] [id number] [address] [place] [address] January, PTSD (post-traumatic stress disorder) F43.10 [facility] [address] [facility] [id number] [address] [place] [address] Dec, PTSD (post-traumatic stress disorder) F43.10 ; Moderate episode of recurrent major depressive disorder F33.1 ; Binge eating disorder F50.81 ; Attention deficit hyperactivity disorder (ADHD), predominantly inattentive type F90.0 and Anxiety disorder, unspecified type F41.9 [facility] [address] [facility] [id number] [address] [place] [address] Nov, PTSD (post-traumatic stress disorder) F43.10 [facility] [address] [facility] [id number] [address] [place] [phone] Aug, [facility] [address] [facility] [id number] [address] [place] [address] Aug, PTSD (post-traumatic stress disorder) F43.10 ; Moderate episode of recurrent major depressive disorder F33.1 ; Binge eating disorder F50.81 ; Attention deficit hyperactivity disorder (ADHD), predominantly inattentive type F90.0 and Anxiety disorder, unspecified type F41.9 [facility] [address] [facility] [id number] [address] [place] [address] Jul, PTSD (post-traumatic stress disorder) F43.10 ; Moderate episode of recurrent major depressive disorder F33.1 ; Binge eating disorder F50.81 ; Attention deficit hyperactivity disorder (ADHD), predominantly inattentive type F90.0 and Anxiety disorder, unspecified type F41.9 [place] [address] [place] [id number] [address] [place] [address] Jun, PTSD (post-traumatic stress disorder) F43.10 ; Moderate episode of recurrent major depressive disorder F33.1 ; Binge eating disorder F50.81 ; Attention deficit hyperactivity disorder (ADHD), predominantly inattentive type F90.0 and Anxiety disorder, unspecified type F41.9 [place] [address] [place] [id number] [address] [place] [address] May, Attention deficit hyperactiv ity disorder (ADHD), predominantly inattentive type F90.0 [place] [address] [place] [id number] [address] [place] [address] Apr, PTSD (post-traumatic stress disorder) F43.10 ; Moderate episode of recurrent major depressive disorder F33.1 ; Binge eating disorder F50.81 ; Attention deficit hyperactivity disorder (ADHD), predominantly inattentive type F90.0 and Anxiety disorder, unspecified type F41.9 [place] [address] [facility] [id number] [address] [place] [address] Apr, PTSD (post-traumatic stress disorder) F43.10 ; Moderate episode of recurrent major depressive disorder F33.1 and Binge eating disorder F50.81 [place] [address] [place] [id number] [address] [place] [phone] Mar, Moderate episode of recurren t major depressive disorder F33.1 [place] [address] [place] [id number] [address] [place] [phone] 18 Jan, 2017 Moderate episode of recurren t major depressive disorder F33.1 [facility] [address] [place] [id number] [address] [place] [phone] 04 Dec, 2016 Anxiety F41.9 ; Binge eating R63.2 and Non morbid obesity due to excess calories E66.09 [facility] [address] [place] [id number] [place] [address] Sep, PTSD (post-traumatic stress disorder) F43.10 ; Non morbid obesity due to excess calories E66.09 and Weight gain R63.5 [facility] [address] [place] [id number] [address] [place] [address] Sep, [facility] [address] [place] [id number] [address] [place] [address] January, Fecal impaction of colon K56 .41 [facility] [address] [place] [id number] [address] [place] [address] Apr, Dysthymia 300.4 [facility] [address] [place] [id number] [address] [place] [phone] Mar, [facility] [address] [place] [id number] [address] [place] [phone] January, [facility] [address] [place] [id number] [address] [place] [phone] Dec, [facility] [address] [place] [id number] [address] [place] [phone] Dec, [facility] [address] [place] [id number] [address] [place] [phone] Oct, [facility] [address] [place] [id number] [address] [place] [phone] Oct, [facility] [address] [place] [id number] [address] [place] [phone] Jul, [facility] [address] [id number] [address] [place] [address], [place] [address] Jul, [facility] [address] [id number] [address] [place] [address], [place] [address] Apr, [facility] [address] [id number] [address] [place] [address], [place] [address] Apr, [facility] [address] [id number] [address] [place] [address], [place] [address] Mar, [facility] [address] [id number] [address] [place] [address], [place] [address] Mar, [facility] [address] [id number] [address] [place] [address], [place] [address] Mar, [facility] [address] [id number] [address] [place] [address], [place] [address] Mar, [facility] [address] [id number] [address] [place] [address], [place] [address] Mar, [facility] [address] [id number] [address] [place] [address], [place] [address] Mar, [facility] [address] [id number] [address] [place] [address], [place] [address] Feb, [facility] [address] [id number] [address] [place] [address], [place] [address] Dec, [facility] [address] [id number] [address] [place] [address], [place] [address] Dec, [facility] [address] [id number] [address] [place] [address], [place] [address] Nov, [facility] [address] [id number] [address] [place] [address], [place] [address] Sep, [facility] [address] [id number] [address] [place] [address], [place] [address] Sep, [facility] [address] [id number] [address] [place] [address], [place] [address] Apr, [facility] [address] [id number] [address] [place] [phone] Dec, [facility] [address] [id number] [address] [place] [phone] Nov, [facility] [address] [facility] [id number] [address] [place] [phone] Jul, [facility] [address] [id number] [address] [place] [phone] Jul, [facility] [address] [facility] [id number] [address] [place] [phone] January, [facility] [address] [facility] [id number] [address] [place] [phone] January, [facility] [address] [facility] [id number] [address] [place] [address] Dec, [facility] [address] [facility] [id number] [address] [place] [address] Sep, IMMUNIZATIONS No Known Immunizations SOCIAL HISTORY Never Assessed REASON FOR VISIT PLAN OF CARE VITAL SIGNS MEDICATIONS Unknown Medications RESULTS No Results PROCEDURES Procedure Date Ordered Result Body Site THER/PROPH/DIAG INJ, SC/IM Oct 19, 2014 Medroxyprogesterone inj Oct 19, 2014 URINE TEST Oct 19, 2014 INSTRUCTIONS MEDICATIONS ADMINISTERED No Known Medications MEDICAL (GENERAL) HISTORY Type Description Date Medical History depression Medical History PTSD Medical History obesity Medical History denies any hx of heart problem or seizur e 05/14/17 Medical History hx of anemia Hospitalization History childbirth only Hospitalization History Denies any past psych hospitalizatio n
--- OUTSIDE RECORDS SUMMARY | 2020-03-21 23:40 | XMS REPORT ---
Author Author Cari Gutierrez Doctor Organization [facility] Address Unknown Phone Unavailable Care Team Providers Care Statistical Clerk Name Role Phone Migration, Doctor Unavailable Unavailable PROBLEMS Type Condition ICD9-CM Code [id number] Code Onset Dates Condition S tatus SNOMED Code Problem Non morbid obesity due to excess calories E66.09 Active 709648895 Problem PTSD (post-traumatic stress disorder) F43.10 Active 79336751 Problem Anxiety disorder, unspecified type F41.9 Active 447318427 Problem Attention deficit hyperactiv ity disorder (ADHD), predominantly inattentive type F90.0 Active 41652860 Problem Anxiety F41.9 Active 19591529 Problem Binge eating R63.2 Active 7504598 05 Problem Moderate episode of recurrent major depressive disorder F33.1 Active 013437972 Problem Binge eating disorder F50.81 Active 329569527 ALLERGIES No Information ENCOUNTERS Encounter Location Date Diagnosis [facility] [address] [place] [phone] Nov Attention deficit hyperactivity disorder (ADHD), predominantly inattentive type F90.0 and Moderate episode of recurrent major depressive disorder F33.1 [place] [address] [place] [address] Sep Moderate episode of recurrent major depressive disorder F33.1 ; Anxiety F41.9 and Attention deficit hyperactivity disorder (ADHD), predominantly inattentive type F90.0 [facility] [address] [place] [address] Sep Acute otitis media, right H66.91 and Dysfunction of left eustachian tube H69.82 [facility] [address] [place] [id number] [address] [place] [address] Apr, Cervicalgia M54.2 ; Screenin g for thyroid disorder Z13.29 and Screening for diabetes mellitus Z13.1 [facility] [address] [facility] [id number] [address] [place] [address] Apr, PTSD (post-traumatic stress disorder) F43.10 ; Moderate episode of recurrent major depressive disorder F33.1 ; Binge eating disorder F50.81 and Attention deficit hyperactivity disorder (ADHD), predominantly inattentive type F90.0 [facility] [address] [facility] [id number] [address] [place] [address] Feb, PTSD (post-traumatic stress disorder) F43.10 ; Moderate episode of recurrent major depressive disorder F33.1 ; Binge eating disorder F50.81 and Attention deficit hyperactivity disorder (ADHD), predominantly inattentive type F90.0 [facility] [address] [id number] [address] [place] [address] Feb, PTSD (post-traumatic stress disorder) F43.10 [place] [address] [facility] [id number] [address] [place] [address] January, PTSD (post-traumatic stress disorder) F43.10 ; Moderate episode of recurrent major depressive disorder F33.1 ; Binge eating disorder F50.81 and Attention deficit hyperactivity disorder (ADHD), predominantly inattentive type F90.0 [facility] [address] [facility] [id number] [address] [place] [address] January, PTSD (post-traumatic stress disorder) F43.10 [facility] [address] [facility] [id number] [address] [place] [address] Dec, PTSD (post-traumatic stress disorder) F43.10 ; Moderate episode of recurrent major depressive disorder F33.1 ; Binge eating disorder F50.81 ; Attention deficit hyperactivity disorder (ADHD), predominantly inattentive type F90.0 and Anxiety disorder, unspecified type F41.9 [facility] [address] [facility] [id number] [address] [place] [address] Nov, PTSD (post-traumatic stress disorder) F43.10 [facility] [address] [facility] [id number] [address] [place] [address] Aug, [facility] [address] [facility] [id number] [address] [place] [address] Aug, PTSD (post-traumatic stress disorder) F43.10 ; Moderate episode of recurrent major depressive disorder F33.1 ; Binge eating disorder F50.81 ; Attention deficit hyperactivity disorder (ADHD), predominantly inattentive type F90.0 and Anxiety disorder, unspecified type F41.9 [facility] [address] [facility] [id number] [address] [place] [address] Jul, PTSD (post-traumatic stress disorder) F43.10 ; Moderate episode of recurrent major depressive disorder F33.1 ; Binge eating disorder F50.81 ; Attention deficit hyperactivity disorder (ADHD), predominantly inattentive type F90.0 and Anxiety disorder, unspecified type F41.9 [place] [address] [place] [id number] [address] [place] [address] Jun, PTSD (post-traumatic stress disorder) F43.10 ; Moderate episode of recurrent major depressive disorder F33.1 ; Binge eating disorder F50.81 ; Attention deficit hyperactivity disorder (ADHD), predominantly inattentive type F90.0 and Anxiety disorder, unspecified type F41.9 [place] [address] [place] [id number] [address] [place] [address] May, Attention deficit hyperactiv ity disorder (ADHD), predominantly inattentive type F90.0 [place] [address] [place] [id number] [address] [place] [address] Apr, PTSD (post-traumatic stress disorder) F43.10 ; Moderate episode of recurrent major depressive disorder F33.1 ; Binge eating disorder F50.81 ; Attention deficit hyperactivity disorder (ADHD), predominantly inattentive type F90.0 and Anxiety disorder, unspecified type F41.9 [place] [address] [facility] [id number] [address] [place] [address] Apr, PTSD (post-traumatic stress disorder) F43.10 ; Moderate episode of recurrent major depressive disorder F33.1 and Binge eating disorder F50.81 [place] [address] [place] [id number] [address] [place] [address] Mar, Moderate episode of recurren t major depressive disorder F33.1 [place] [address] [place] [id number] [address] [place] [address] 18 Jan, 2017 Moderate episode of recurren t major depressive disorder F33.1 [facility] [address] [place] [id number] [address] [place] [address] 04 Dec, 2016 Anxiety F41.9 ; Binge eating R63.2 and Non morbid obesity due to excess calories E66.09 [facility] [address] [place] [id number] [place] [address] Sep, PTSD (post-traumatic stress disorder) F43.10 ; Non morbid obesity due to excess calories E66.09 and Weight gain R63.5 [facility] [address] [place] [id number] [address] [place] [address] Sep, [facility] [address] [place] [id number] [address] [place] [address] January, Fecal impaction of colon K56 .41 [facility] [address] [place] [id number] [address] [place] [address] Apr, Dysthymia 300.4 [facility] [address] [place] [id number] [address] [place] [address] Mar, [facility] [address] [place] [id number] [address] [place] [address] January, [facility] [address] [place] [id number] [address] [place] [address] Dec, [facility] [address] [place] [id number] [address] [place] [address] Dec, [facility] [address] [place] [id number] [address] [place] [address] Oct, [facility] [address] [place] [id number] [address] [place] [phone] Oct, [facility] [address] [place] [id number] [address] [place] [address] Jul, [facility] [address] [id number] [address] [place] [address], [place] [address] Jul, [facility] [address] [id number] [address] [place] [address], [place] [address] Apr, [facility] [address] [id number] [address] [place] [address], [place] [address] Apr, [facility] [address] [id number] [address] [place] [address], [place] [address] Mar, [facility] [address] [id number] [address] [place] [address], [place] [address] Mar, [facility] [address] [id number] [address] [place] [address], [place] [address] Mar, [facility] [address] [id number] [address] [place] [address], [place] [address] Mar, [facility] [address] [id number] [address] [place] [address], [place] [address] Mar, [facility] [address] [id number] [address] [place] [address], [place] [address] Mar, [facility] [address] [id number] [address] [place] [address], [place] [address] Feb, [facility] [address] [id number] [address] [place] [address], [place] [address] Dec, [facility] [address] [id number] [address] [place] [address], [place] [address] Dec, [facility] [address] [id number] [address] [place] [address], [place] [address] Nov, [facility] [address] [id number] [address] [place] [address], [place] [address] Sep, [facility] [address] [id number] [address] [place] [address], [place] [address] Sep, [facility] [address] [id number] [address] [place] [address], [place] [address] Apr, [facility] [address] [id number] [address] [place] [address] Dec, [facility] [address] [id number] [address] [place] [address] Nov, [facility] [address] [id number] [address] [place] [address] Jul, [facility] [address] [id number] [address] [place] [address] Jul, [facility] [address] [id number] [address] [place] [address] January, [facility] [address] [id number] [address] [place] [address] January, [facility] [address] [facility] [id number] [address] [place] [address] Dec, [facility] [address] [id number] [address] [place] [address] Sep, IMMUNIZATIONS No Known Immunizations SOCIAL HISTORY Never Assessed REASON FOR VISIT [facility] [place]AN OF CARE VITAL SIGNS MEDICATIONS Unknown Medications RESULTS No Results PROCEDURES Procedure Date Ordered Result Body Site CYTOPATH C/V AUTO FLUID REDO Oct 01, 2012 INSTRUCTIONS MEDICATIONS ADMINISTERED No Known Medications MEDICAL (GENERAL) HISTORY Type Description Date Medical History depression Medical History PTSD Medical History obesity Medical History denies any hx of heart problem or seizur e 05/14/17 Medical History hx of anemia Hospitalization History childbirth only Hospitalization History Denies any past psych hospitalizatio n
--- OUTSIDE RECORDS SUMMARY | 2020-03-21 23:40 | XMS REPORT ---
Author Author Brenda, Cari Doctor Organization [facility] Address Unknown Phone Unavailable Care Team Providers Care Psych Rn Name Role Phone Migration, Doctor Unavailable Unavailable PROBLEMS Type Condition ICD9-CM Code OXN03-UI Code Onset Dates Condition S tatus SNOMED Code Problem Non morbid obesity due to excess calories E66.09 Active 431460171 Problem PTSD (post-traumatic stress disorder) F43.10 Active 11432567 Problem Anxiety disorder, unspecified type F41.9 Active 365563813 Problem Attention deficit hyperactiv ity disorder (ADHD), predominantly inattentive type F90.0 Active 94389183 Problem Anxiety F41.9 Active 29249662 Problem Binge eating R63.2 Active 2961156 05 Problem Moderate episode of recurrent major depressive disorder F33.1 Active 214827987 Problem Binge eating disorder F50.81 Active 668463235 ALLERGIES Substance Reaction Event Type Date Status Amoxicillin Unknown Drug Allergy Dec, Active ENCOUNTERS Encounter Location Date Diagnosis [place] [address] [place] [address] Nov Attention deficit hyperactivity disorder (ADHD), predominantly inattentive type F90.0 and Moderate episode of recurrent major depressive disorder F33.1 [place] [address] [place] [address] Sep Moderate episode of recurrent major depressive disorder F33.1 ; Anxiety F41.9 and Attention deficit hyperactivity disorder (ADHD), predominantly inattentive type F90.0 [place] [address] [place] [address] Sep Acute otitis media, right H66.91 and Dysfunction of left eustachian tube H69.82 [place] [address] [facility] [id number] [address] [place] [address] Apr, Cervicalgia M54.2 ; Screenin g for thyroid disorder Z13.29 and Screening for diabetes mellitus Z13.1 [facility] [place] [address] [place] [id number] [address] [place] [address] Apr, PTSD (post-traumatic stress disorder) F43.10 ; Moderate episode of recurrent major depressive disorder F33.1 ; Binge eating disorder F50.81 and Attention deficit hyperactivity disorder (ADHD), predominantly inattentive type F90.0 [facility] [place] [address] [id number] [address] [place] [address] Feb, PTSD (post-traumatic stress disorder) F43.10 ; Moderate episode of recurrent major depressive disorder F33.1 ; Binge eating disorder F50.81 and Attention deficit hyperactivity disorder (ADHD), predominantly inattentive type F90.0 [facility] [place] [address] [id number] [address] [place] [address] Feb, PTSD (post-traumatic stress disorder) F43.10 [facility] [place] [address] [id number] [address] [place] [address] January, PTSD (post-traumatic stress disorder) F43.10 ; Moderate episode of recurrent major depressive disorder F33.1 ; Binge eating disorder F50.81 and Attention deficit hyperactivity disorder (ADHD), predominantly inattentive type F90.0 [facility] [place] [address] [id number] [address] [place] [address] January, PTSD (post-traumatic stress disorder) F43.10 [facility] [place] [address] [facility] [id number] [address] [place] [address] Dec, PTSD (post-traumatic stress disorder) F43.10 ; Moderate episode of recurrent major depressive disorder F33.1 ; Binge eating disorder F50.81 ; Attention deficit hyperactivity disorder (ADHD), predominantly inattentive type F90.0 and Anxiety disorder, unspecified type F41.9 [facility] [place] [address] [id number] [address] [place] [address] Nov, PTSD (post-traumatic stress disorder) F43.10 [facility] [place] [address] [id number] [address] [place] [address] Aug, [facility] [place] [address] [facility] [id number] [address] [place] [address] Aug, PTSD (post-traumatic stress disorder) F43.10 ; Moderate episode of recurrent major depressive disorder F33.1 ; Binge eating disorder F50.81 ; Attention deficit hyperactivity disorder (ADHD), predominantly inattentive type F90.0 and Anxiety disorder, unspecified type F41.9 [facility] [place] [address] [place] [id number] [address] [place] [address] Jul, PTSD (post-traumatic stress disorder) F43.10 ; Moderate episode of recurrent major depressive disorder F33.1 ; Binge eating disorder F50.81 ; Attention deficit hyperactivity disorder (ADHD), predominantly inattentive type F90.0 and Anxiety disorder, unspecified type F41.9 [place] [address] [facility] [id number] [address] [place] [phone] Jun, PTSD (post-traumatic stress disorder) F43.10 ; Moderate episode of recurrent major depressive disorder F33.1 ; Binge eating disorder F50.81 ; Attention deficit hyperactivity disorder (ADHD), predominantly inattentive type F90.0 and Anxiety disorder, unspecified type F41.9 [place] [address] [place] [id number] [address] [place] [address] May, Attention deficit hyperactiv ity disorder (ADHD), predominantly inattentive type F90.0 [place] [address] [facility] [id number] [address] [place] [address] Apr, PTSD (post-traumatic stress disorder) F43.10 ; Moderate episode of recurrent major depressive disorder F33.1 ; Binge eating disorder F50.81 ; Attention deficit hyperactivity disorder (ADHD), predominantly inattentive type F90.0 and Anxiety disorder, unspecified type F41.9 [facility] [place] [address] [facility] [id number] [address] [place] [address] Apr, PTSD (post-traumatic stress disorder) F43.10 ; Moderate episode of recurrent major depressive disorder F33.1 and Binge eating disorder F50.81 [facility] [place] [address] [facility] [id number] [address] [place] [phone] Mar, Moderate episode of recurren t major depressive disorder F33.1 [facility] [place] [address] [facility] [id number] [address] [place] [phone] 18 Jan, 2017 Moderate episode of recurren t major depressive disorder F33.1 [facility] [place] [address] [facility] [id number] [address] [place] [address] 04 Dec, 2016 Anxiety F41.9 ; Binge eating R63.2 and Non morbid obesity due to excess calories E66.09 [facility] [place] [address] [facility] [id number] [address] [place] [address] Sep, PTSD (post-traumatic stress disorder) F43.10 ; Non morbid obesity due to excess calories E66.09 and Weight gain R63.5 [facility] [place] [address] [facility] [id number] [address] [place] [phone] Sep, [facility] [address] [facility] [id number] [address] [place] [phone] January, Fecal impaction of colon K56 .41 [facility] [place] [address] [facility] [id number] [address] [place] [phone] Apr, Dysthymia 300.4 [facility] [place] [address] [facility] [id number] [address] [place] [phone] Mar, [facility] [place] [address] [facility] [id number] [address] [place] [phone] January, [facility] [place] [address] [facility] [id number] [address] [place] [phone] Dec, [facility] [place] [address] [facility] [id number] [address] [place] [phone] Dec, [facility] [place] [address] [facility] [id number] [address] [place] [phone] Oct, [facility] [place] [address] [facility] [id number] [address] [place] [phone] Oct, [facility] [place] [address] [facility] [id number] [address] [place] [phone] Jul, [facility] [address] [id number] [address] [place] [address], [place] [address] Jul, [facility] [address] [id number] [address] [place] [address], [place] [address] Apr, [facility] [address] [id number] [address] [place] [address], [place] [address] Apr, [facility] [address] [id number] [address] [place] [address], [place] [address] Mar, [facility] [address] [id number] [address] [place] [address], [place] [address] Mar, [facility] [address] [id number] [address] [place] [address], [place] [address] Mar, [facility] [address] [id number] [address] [place] [address], [place] [address] Mar, [facility] [address] [id number] [address] [place] [address], [place] [address] Mar, [facility] [address] [id number] [address] [place] [address], [place] [address] Mar, [facility] [address] [id number] [address] [place] [address], [place] [address] Feb, [facility] [address] [id number] [address] [place] [address], [place] [address] Dec, [facility] [address] [id number] [address] [place] [address], [place] [address] Dec, [facility] [address] [id number] [address] [place] [address], [place] [address] Nov, [facility] [address] [id number] [address] [place] [address], [place] [address] Sep, [facility] [address] [id number] [address] [place] [address], [place] [address] Sep, [facility] [address] [id number] [address] [place] [phone] Apr, [facility] [place] [address] [id number] [address] [place] [phone] Dec, [facility] [place] [address] [id number] [address] [place] [phone] Nov, [facility] [place] [address] [id number] [address] [place] [id number] Jul, [facility] [place] [address] [id number] [address] [place] [phone] Jul, [facility] [place] [address] [id number] [address] [place] [phone] January, [facility] [place] [address] [id number] [address] [place] [phone] January, [facility] [place] [address] [id number] [address] [place] [phone] Dec, [facility] [place] [address] [id number] [address] [place] [id number] Sep, IMMUNIZATIONS No Known Immunizations SOCIAL HISTORY Never Assessed REASON FOR VISIT [facility] [place] PLAN OF CARE VITAL SIGNS MEDICATIONS Medication Instructions Dosage Frequency Start Date End Date Duration S tatus Prozac 20 mg 1 capsule by Oral route 1 time per day 2013 Active Depo-Provera 150 mg/mL inject 150 mg by intramuscular route every 3 months Jul, Active RESULTS No Results PROCEDURES No Known [...]
--- OUTSIDE RECORDS SUMMARY | 2020-03-21 23:40 | XMS REPORT ---
Author Author Cari Gutierrez Doctor Organization [facility] Address Unknown Phone Unavailable Care Team Providers Care Army Officer Name Role Phone Migration, Doctor Unavailable Unavailable PROBLEMS Type Condition ICD9-CM Code [id number] Code Onset Dates Condition S tatus SNOMED Code Problem Non morbid obesity due to excess calories E66.09 Active 970138036 Problem PTSD (post-traumatic stress disorder) F43.10 Active 56911720 Problem Anxiety disorder, unspecified type F41.9 Active 255176934 Problem Attention deficit hyperactiv ity disorder (ADHD), predominantly inattentive type F90.0 Active 66723998 Problem Anxiety F41.9 Active 91844504 Problem Binge eating R63.2 Active 4839573 05 Problem Moderate episode of recurrent major depressive disorder F33.1 Active 992911929 Problem Binge eating disorder F50.81 Active 978409788 ALLERGIES No Information ENCOUNTERS Encounter Location Date Diagnosis [facility] [address] [place] [address] Nov Attention deficit hyperactivity disorder (ADHD), predominantly inattentive type F90.0 and Moderate episode of recurrent major depressive disorder F33.1 [place] [address] [place] [address] Sep Moderate episode of recurrent major depressive disorder F33.1 ; Anxiety F41.9 and Attention deficit hyperactivity disorder (ADHD), predominantly inattentive type F90.0 [facility] [address] [place] [address] Sep Acute otitis media, right H66.91 and Dysfunction of left eustachian tube H69.82 [facility] [address] [place] [id number] [address] [place] [address] Apr, Cervicalgia M54.2 ; Screenin g for thyroid disorder Z13.29 and Screening for diabetes mellitus Z13.1 [facility] [address] [facility] [id number] [address] [place] [address] Apr, PTSD (post-traumatic stress disorder) F43.10 ; Moderate episode of recurrent major depressive disorder F33.1 ; Binge eating disorder F50.81 and Attention deficit hyperactivity disorder (ADHD), predominantly inattentive type F90.0 [facility] [address] [facility] [id number] [address] [place] [address] Feb, PTSD (post-traumatic stress disorder) F43.10 ; Moderate episode of recurrent major depressive disorder F33.1 ; Binge eating disorder F50.81 and Attention deficit hyperactivity disorder (ADHD), predominantly inattentive type F90.0 [facility] [address] [id number] [address] [place] [address] Feb, PTSD (post-traumatic stress disorder) F43.10 [place] [address] [facility] [id number] [address] [place] [address] January, PTSD (post-traumatic stress disorder) F43.10 ; Moderate episode of recurrent major depressive disorder F33.1 ; Binge eating disorder F50.81 and Attention deficit hyperactivity disorder (ADHD), predominantly inattentive type F90.0 [facility] [address] [facility] [id number] [address] [place] [address] January, PTSD (post-traumatic stress disorder) F43.10 [facility] [address] [facility] [id number] [address] [place] [address] Dec, PTSD (post-traumatic stress disorder) F43.10 ; Moderate episode of recurrent major depressive disorder F33.1 ; Binge eating disorder F50.81 ; Attention deficit hyperactivity disorder (ADHD), predominantly inattentive type F90.0 and Anxiety disorder, unspecified type F41.9 [facility] [address] [facility] [id number] [address] [place] [address] Nov, PTSD (post-traumatic stress disorder) F43.10 [facility] [address] [facility] [id number] [address] [place] [phone] Aug, [facility] [address] [facility] [id number] [address] [place] [address] Aug, PTSD (post-traumatic stress disorder) F43.10 ; Moderate episode of recurrent major depressive disorder F33.1 ; Binge eating disorder F50.81 ; Attention deficit hyperactivity disorder (ADHD), predominantly inattentive type F90.0 and Anxiety disorder, unspecified type F41.9 [facility] [address] [facility] [id number] [address] [place] [address] Jul, PTSD (post-traumatic stress disorder) F43.10 ; Moderate episode of recurrent major depressive disorder F33.1 ; Binge eating disorder F50.81 ; Attention deficit hyperactivity disorder (ADHD), predominantly inattentive type F90.0 and Anxiety disorder, unspecified type F41.9 [place] [address] [place] [id number] [address] [place] [address] Jun, PTSD (post-traumatic stress disorder) F43.10 ; Moderate episode of recurrent major depressive disorder F33.1 ; Binge eating disorder F50.81 ; Attention deficit hyperactivity disorder (ADHD), predominantly inattentive type F90.0 and Anxiety disorder, unspecified type F41.9 [place] [address] [place] [id number] [address] [place] [address] May, Attention deficit hyperactiv ity disorder (ADHD), predominantly inattentive type F90.0 [place] [address] [place] [id number] [address] [place] [address] Apr, PTSD (post-traumatic stress disorder) F43.10 ; Moderate episode of recurrent major depressive disorder F33.1 ; Binge eating disorder F50.81 ; Attention deficit hyperactivity disorder (ADHD), predominantly inattentive type F90.0 and Anxiety disorder, unspecified type F41.9 [place] [address] [facility] [id number] [address] [place] [address] Apr, PTSD (post-traumatic stress disorder) F43.10 ; Moderate episode of recurrent major depressive disorder F33.1 and Binge eating disorder F50.81 [place] [address] [place] [id number] [address] [place] [address] Mar, Moderate episode of recurren t major depressive disorder F33.1 [place] [address] [place] [id number] [address] [place] [phone] 18 Jan, 2017 Moderate episode of recurren t major depressive disorder F33.1 [facility] [address] [place] [id number] [address] [place] [phone] 04 Dec, 2016 Anxiety F41.9 ; Binge eating R63.2 and Non morbid obesity due to excess calories E66.09 [facility] [address] [place] [id number] [place] [address] Sep, PTSD (post-traumatic stress disorder) F43.10 ; Non morbid obesity due to excess calories E66.09 and Weight gain R63.5 [facility] [address] [place] [id number] [address] [place] [address] Sep, [facility] [address] [place] [id number] [address] [place] [address] January, Fecal impaction of colon K56 .41 [facility] [address] [place] [id number] [address] [place] [address] Apr, Dysthymia 300.4 [facility] [address] [place] [id number] [address] [place] [address] Mar, [facility] [address] [place] [id number] [address] [place] [address] January, [facility] [address] [place] [id number] [address] [place] [phone] Dec, [facility] [address] [place] [id number] [address] [place] [address] Dec, [facility] [address] [place] [id number] [address] [place] [address] Oct, [facility] [address] [place] [id number] [address] [place] [phone] Oct, [facility] [address] [place] [id number] [address] [place] [address] Jul, [facility] [address] [id number] [address] [place] [address], [place] [address] Jul, [facility] [address] [id number] [address] [place] [address], [place] [address] Apr, [facility] [address] [id number] [address] [place] [address], [place] [address] Apr, [facility] [address] [id number] [address] [place] [address], [place] [address] Mar, [facility] [address] [id number] [address] [place] [address], [place] [address] Mar, [facility] [address] [id number] [address] [place] [address], [place] [address] Mar, [facility] [address] [id number] [address] [place] [address], [place] [address] Mar, [facility] [address] [id number] [address] [place] [address], [place] [address] Mar, [facility] [address] [id number] [address] [place] [address], [place] [address] Mar, [facility] [address] [id number] [address] [place] [address], [place] [address] Feb, [facility] [address] [id number] [address] [place] [address], [place] [address] Dec, [facility] [address] [id number] [address] [place] [address], [place] [address] Dec, [facility] [address] [id number] [address] [place] [address], [place] [address] Nov, [facility] [address] [id number] [address] [place] [address], [place] [address] Sep, [facility] [address] [id number] [address] [place] [address], [place] [address] Sep, [facility] [address] [id number] [address] [place] [address], [place] [address] Apr, [facility] [address] [id number] [address] [place] [phone] Dec, [facility] [address] [id number] [address] [place] [phone] Nov, [facility] [address] [facility] [id number] [address] [place] [phone] Jul, [facility] [address] [facility] [id number] [address] [place] [phone] Jul, [facility] [address] [facility] [id number] [address] [place] [address] January, [facility] [address] [facility] [id number] [address] [place] [address] January, [facility] [address] [facility] [id number] [address] [place] [address] Dec, [facility] [address] [facility] [id number] [address] [place] [phone] Sep, IMMUNIZATIONS No Known Immunizations SOCIAL HISTORY Never Assessed REASON FOR VISIT [facility]MR[facility] PLAN OF CARE VITAL SIGNS MEDICATIONS Unknown [...]
--- OUTSIDE RECORDS SUMMARY | 2020-03-21 23:40 | XMS REPORT ---
Author Author Cari YIP Organization [facility] Address [address] [place] [address] Care Team Providers Care Engineer Process Name Role Phone BORIS YIP Unavailable PROBLEMS Type Condition ICD9-CM Code OZI42-MK Code Onset Dates Condition S tatus SNOMED Code Problem PTSD (post-traumatic stress disorder) F43.10 Active 19893078 Problem Non morbid obesity due to excess calories E66.09 Active 803672676 Problem Attention deficit hyperactiv ity disorder (ADHD), predominantly inattentive type F90.0 Active 13700276 Problem Anxiety disorder, unspecified type F41.9 Active 496983524 Problem Binge eating R63.2 Active 0078464 05 Problem Anxiety F41.9 Active 64923248 Problem Binge eating disorder F50.81 Active 054328628 Problem Moderate episode of recurrent major depressive disorder F33.1 Active 589655385 ALLERGIES No Information ENCOUNTERS Encounter Location Date Diagnosis [place] [address] [place] [id number] [place] [address] May, [place] [address] [place] [id number] [address] [place] [address] Apr, Cervicalgia M54.2 ; Screenin g for thyroid disorder Z13.29 and Screening for diabetes mellitus Z13.1 [facility] [address] [facility] [id number] [address] [place] [address] Apr, PTSD (post-traumatic stress disorder) F43.10 ; Moderate episode of recurrent major depressive disorder F33.1 ; Binge eating disorder F50.81 and Attention deficit hyperactivity disorder (ADHD), predominantly inattentive type F90.0 [facility] [address] [place] [id number] [place] [address] Feb, PTSD (post-traumatic stress disorder) F43.10 ; Moderate episode of recurrent major depressive disorder F33.1 ; Binge eating disorder F50.81 and Attention deficit hyperactivity disorder (ADHD), predominantly inattentive type F90.0 [place] [address] [facility] [id number] [address] [place] [address] Feb, PTSD (post-traumatic stress disorder) F43.10 [facility] [address] [facility] [id number] [address] [place] [address] January, PTSD (post-traumatic stress disorder) F43.10 ; Moderate episode of recurrent major depressive disorder F33.1 ; Binge eating disorder F50.81 and Attention deficit hyperactivity disorder (ADHD), predominantly inattentive type F90.0 [place] [address] [facility] [id number] [address] [place] [address] January, PTSD (post-traumatic stress disorder) F43.10 [place] [address] [facility] [id number] [address] [place] [address] Dec, PTSD (post-traumatic stress disorder) F43.10 ; Moderate episode of recurrent major depressive disorder F33.1 ; Binge eating disorder F50.81 ; Attention deficit hyperactivity disorder (ADHD), predominantly inattentive type F90.0 and Anxiety disorder, unspecified type F41.9 [place] [address] [facility] [id number] [address] [place] [address] Nov, PTSD (post-traumatic stress disorder) F43.10 [place] [address] [facility] [id number] [address] [place] [address] Aug, [facility] [address] [facility] [id number] [address] [place] [address] Aug, PTSD (post-traumatic stress disorder) F43.10 ; Moderate episode of recurrent major depressive disorder F33.1 ; Binge eating disorder F50.81 ; Attention deficit hyperactivity disorder (ADHD), predominantly inattentive type F90.0 and Anxiety disorder, unspecified type F41.9 [place] [address] [facility] [id number] [address] [place] [address] Jul, PTSD (post-traumatic stress disorder) F43.10 ; Moderate episode of recurrent major depressive disorder F33.1 ; Binge eating disorder F50.81 ; Attention deficit hyperactivity disorder (ADHD), predominantly inattentive type F90.0 and Anxiety disorder, unspecified type F41.9 [place] [address] [place] [id number] [address] [place] [address] Jun, PTSD (post-traumatic stress disorder) F43.10 ; Moderate episode of recurrent major depressive disorder F33.1 ; Binge eating disorder F50.81 ; Attention deficit hyperactivity disorder (ADHD), predominantly inattentive type F90.0 and Anxiety disorder, unspecified type F41.9 [place] [address] [place] [id number] [address] [place] [address] May, Attention deficit hyperactiv ity disorder (ADHD), predominantly inattentive type F90.0 [place] [address] [place] [id number] [address] [place] [address] Apr, PTSD (post-traumatic stress disorder) F43.10 ; Moderate episode of recurrent major depressive disorder F33.1 ; Binge eating disorder F50.81 ; Attention deficit hyperactivity disorder (ADHD), predominantly inattentive type F90.0 and Anxiety disorder, unspecified type F41.9 [place] [address] [place] [id number] [place] [address] Apr, PTSD (post-traumatic stress disorder) F43.10 ; Moderate episode of recurrent major depressive disorder F33.1 and Binge eating disorder F50.81 [place] [address] [place] [id number] [place] [address] Mar, Moderate episode of recurren t major depressive disorder F33.1 [place] [address] [place] [id number] [address] [place] [address] January, Moderate episode of recurren t major depressive disorder F33.1 [place] [address] [place] [id number] [address] [place] [address] Dec, Anxiety F41.9 ; Binge eating R63.2 and Non morbid obesity due to excess calories E66.09 [facility] [place] [address] [id number] [address] [place] [address] Sep, PTSD (post-traumatic stress disorder) F43.10 ; Non morbid obesity due to excess calories E66.09 and Weight gain R63.5 [facility] [place] [address] [id number] [address] [place] [address] Sep, [facility] [address] [id number] [address] [place] [address] January, Fecal impaction of colon K56 .41 [facility] [place] [address] [id number] [address] [place] [address] Apr, Dysthymia 300.4 [facility] [place] [address] [id number] [address] [place] [address] Mar, [facility] [place] [address] [facility] [id number] [address] [place] [address] January, [facility] [place] [address] [id number] [address] [place] [address] Dec, [facility] [place] [address] [id number] [address] [place] [address] Dec, [facility] [place] [address] [facility] [id number] [address] [place] [address] Oct, [facility] [place] [address] [id number] [address] [place] [address] Oct, [facility] [place] [address] [id number] [address] [place] [address] Jul, [facility] [place] [address] [id number] [address] [place] [address] Jul, [facility] [place] [address] [id number] [address] [place] [address] Apr, [facility] [place] [address] [id number] [address] [place] [address] Apr, [facility] [address] [id number] [address] [place] [address], [place] [address] Mar, [facility] [address] [id number] [address] [place] [address], [place] [address] Mar, [facility] [address] [id number] [address] [place] [address], [place] [address] Mar, [facility] [address] [id number] [address] [place] [address], [place] [address] Mar, [facility] [address] [id number] [address] [place] [address], [place] [address] Mar, [facility] [address] [id number] [address] [place] [address], [place] [address] Mar, [facility] [address] [id number] [address] [place] [address], [place] [address] Feb, [facility] [address] [id number] [address] [place] [address], [place] [address] Dec, [facility] [address] [id number] [address] [place] [address], [place] [address] Dec, [facility] [address] [id number] [address] [place] [address], [place] [address] Nov, [facility] [address] [id number] [address] [place] [address], [place] [address] Sep, [facility] [address] [id number] [address] [place] [address], [place] [address] Sep, [facility] [address] [id number] [address] [place] [address], [place] [address] Apr, [facility] [address] [id number] [address] [place] [address], [place] [address] Dec, [facility] [address] [id number] [address] [place] [address], [place] [address] Nov, [facility] [address] [id number] [address] [place] [phone] 10 Jul, 2011 [facility] [place] [address] [facility] [id number] [address] [place] [address] Jul, [facility] [place] [address] [facility] [id number] [address] [place] [address] January, [facility] [place] [address] [facility] [id number] [address] [place] [address] January, [facility] [place] [address] [facility] [id number] [address] [place] [address] Dec, [facility] [place] [address] [facility] [id number] [address] [place] [address] Sep, IMMUNIZATIONS No Known Immunizations SOCIAL HISTORY Never Assessed REASON FOR VISIT concerta 02/17/2018 PLAN OF CARE VITAL SIGNS MEDICATIONS Medication Instructions Dosage Frequency Start Date End Date Duration S tatus Concerta 18 mg Orally Once a day 1 tablet in the morning 24h Feb, 28 days Active RESULTS No Results PROCEDURES No Known [...]
--- OUTSIDE RECORDS SUMMARY | 2020-03-21 23:40 | XMS REPORT ---
Author Author Cari YIP Organization [facility] Address [address] [place] [address] Care Team Providers Care Admin Dir Name Role Phone THEODORA, BORIS Unavailable PROBLEMS Type Condition ICD9-CM Code [id number] Code Onset Dates Condition S tatus SNOMED Code Problem PTSD (post-traumatic stress disorder) F43.10 Active 52070267 Problem Non morbid obesity due to excess calories E66.09 Active 050833279 Problem Attention deficit hyperactiv ity disorder (ADHD), predominantly inattentive type F90.0 Active 53829764 Problem Anxiety disorder, unspecified type F41.9 Active 805526358 Problem Binge eating R63.2 Active 5693413 05 Problem Anxiety F41.9 Active 15838788 Problem Binge eating disorder F50.81 Active 668204211 Problem Moderate episode of recurrent major depressive disorder F33.1 Active 523517317 ALLERGIES Substance Reaction Event Type Date Status Amoxicillin hives Drug Allergy Feb, Active ENCOUNTERS Encounter Location Date Diagnosis [place] [id number] [facility] [id number] [address] [place] [phone] May, [facility] [address] [facility] [id number] [address] [place] [address] Apr, Cervicalgia M54.2 ; Screenin g for thyroid disorder Z13.29 and Screening for diabetes mellitus Z13.1 [facility] [address] [facility] [id number] [address] [place] [address] Apr, PTSD (post-traumatic stress disorder) F43.10 ; Moderate episode of recurrent major depressive disorder F33.1 ; Binge eating disorder F50.81 and Attention deficit hyperactivity disorder (ADHD), predominantly inattentive type F90.0 [facility] [address] [facility] [id number] [address] [place] [address] Feb, PTSD (post-traumatic stress disorder) F43.10 ; Moderate episode of recurrent major depressive disorder F33.1 ; Binge eating disorder F50.81 and Attention deficit hyperactivity disorder (ADHD), predominantly inattentive type F90.0 [facility] [address] [facility] [id number] [address] [place] [address] Feb, PTSD (post-traumatic stress disorder) F43.10 [place] [address] [facility] [id number] [address] [place] [phone] January, PTSD (post-traumatic stress disorder) F43.10 ; Moderate episode of recurrent major depressive disorder F33.1 ; Binge eating disorder F50.81 and Attention deficit hyperactivity disorder (ADHD), predominantly inattentive type F90.0 [place] [address] [facility] [id number] [address] [place] [address] January, PTSD (post-traumatic stress disorder) F43.10 [place] [address] [facility] [id number] [address] [place] [address] Dec, PTSD (post-traumatic stress disorder) F43.10 ; Moderate episode of recurrent major depressive disorder F33.1 ; Binge eating disorder F50.81 ; Attention deficit hyperactivity disorder (ADHD), predominantly inattentive type F90.0 and Anxiety disorder, unspecified type F41.9 [place] [address] [facility] [id number] [address] [place] [phone] Nov, PTSD (post-traumatic stress disorder) F43.10 [place] [address] [facility] [id number] [address] [place] [phone] Aug, [facility] [address] [facility] [id number] [address] [place] [address] Aug, PTSD (post-traumatic stress disorder) F43.10 ; Moderate episode of recurrent major depressive disorder F33.1 ; Binge eating disorder F50.81 ; Attention deficit hyperactivity disorder (ADHD), predominantly inattentive type F90.0 and Anxiety disorder, unspecified type F41.9 [facility] [address] [facility] [id number] [address] [place] [address] Jul, PTSD (post-traumatic stress disorder) F43.10 ; Moderate episode of recurrent major depressive disorder F33.1 ; Binge eating disorder F50.81 ; Attention deficit hyperactivity disorder (ADHD), predominantly inattentive type F90.0 and Anxiety disorder, unspecified type F41.9 [place] [address] [place] [id number] [address] [place] [address] Jun, PTSD (post-traumatic stress disorder) F43.10 ; Moderate episode of recurrent major depressive disorder F33.1 ; Binge eating disorder F50.81 ; Attention deficit hyperactivity disorder (ADHD), predominantly inattentive type F90.0 and Anxiety disorder, unspecified type F41.9 [place] [address] [facility] [id number] [address] [place] [phone] May, Attention deficit hyperactiv ity disorder (ADHD), predominantly inattentive type F90.0 [place] [address] [place] [id number] [address] [place] [address] Apr, PTSD (post-traumatic stress disorder) F43.10 ; Moderate episode of recurrent major depressive disorder F33.1 ; Binge eating disorder F50.81 ; Attention deficit hyperactivity disorder (ADHD), predominantly inattentive type F90.0 and Anxiety disorder, unspecified type F41.9 [place] [address] [place] [id number] [address] [place] [phone] Apr, PTSD (post-traumatic stress disorder) F43.10 ; Moderate episode of recurrent major depressive disorder F33.1 and Binge eating disorder F50.81 [place] [address] [place] [id number] [address] [place] [phone] Mar, Moderate episode of recurren t major depressive disorder F33.1 [place] [address] [place] [id number] [address] [place] [phone] January, Moderate episode of recurren t major depressive disorder F33.1 [place] [address] [facility] [id number] [address] [place] [phone] Dec, Anxiety F41.9 ; Binge eating R63.2 and Non morbid obesity due to excess calories E66.09 [facility] [address] [id number] [address] [place] [address] Sep, PTSD (post-traumatic stress disorder) F43.10 ; Non morbid obesity due to excess calories E66.09 and Weight gain R63.5 [facility] [address] [id number] [address] [place] [phone] Sep, [facility] [address] [id number] [address] [place] [address] January, Fecal impaction of colon K56 .41 [facility] [address] [id number] [address] [place] [address] Apr, Dysthymia 300.4 [facility] [address] [id number] [address] [place] [phone] Mar, [facility] [address] [id number] [address] [place] [phone] January, [facility] [address] [id number] [address] [place] [phone] Dec, [facility] [address] [id number] [address] [place] [phone] Dec, [facility] [address] [facility] [id number] [address] [place] [phone] Oct, [facility] [address] [id number] [address] [place] [phone] Oct, [facility] [address] [id number] [address] [place] [phone] Jul, [facility] [address] [id number] [address] [place] [phone] Jul, [facility] [address] [id number] [address] [place] [phone] Apr, [facility] [address] [id number] [address] [place] [phone] Apr, [facility] [address] [id number] [address] [place] [address], [place] [address] Mar, [facility] [address] [id number] [address] [place] [address], [place] [address] Mar, [facility] [address] [id number] [address] [place] [address], [place] [address] Mar, [facility] [address] [id number] [address] [place] [address], [place] [address] Mar, [facility] [address] [id number] [address] [place] [address], [place] [address] Mar, [facility] [address] [id number] [address] [place] [address], [place] [address] Mar, [facility] [address] [id number] [address] [place] [address], [place] [address] Feb, [facility] [address] [id number] [address] [place] [address], [place] [address] Dec, [facility] [address] [id number] [address] [place] [address], [place] [address] Dec, [facility] [address] [id number] [address] [place] [address], [place] [address] Nov, [facility] [address] [id number] [address] [place] [address], [place] [address] Sep, [facility] [address] [id number] [address] [place] [address], [place] [address] Sep, [facility] [address] [id number] [address] [place] [address], [place] [address] Apr, [facility] [address] [id number] [address] [place] [address], [place] [address] Dec, [facility] [address] [id number] [address] [place] [address], [place] [address] Nov, [facility] [address] [id number] [address] [place] [phone] 10 Jul, 2011 [facility] [address] [facility] [id number] [address] [place] [phone] Jul, [facility] [address] [facility] [id number] [address] [place] [phone] January, [facility] [address] [facility] [id number] [address] [place] [phone] January, [facility] [address] [facility] [id number] [address] [place] [phone] Dec, [facility] [address] [facility] [id number] [address] [place] [address] Sep, IMMUNIZATIONS No Known Immunizations SOCIAL HISTORY Never Assessed REASON FOR VISIT f/u PLAN OF CARE Activity Details Follow Up 3 Weeks Reason: f/u VITAL SIGNS Height 64 in 2018-02-18 Weight 226 lbs 2018-02-18 BMI 38.79 kg/m2 2018-02-18 Blood pressure systolic 132 mmHg 2018-02-18 Blood pressure diastolic 78 mmHg 2018-02-18 MEDICATIONS Medication Instructions Dosage Frequency Start Date End Date Duration S tatus Concerta 18 mg Orally Once a day 1 tablet in the morning 24h Feb, Active BusPIRone HCl 10 mg Orally Twice a day 1 tablet 12h Feb, 30 days Active Depo-Provera 150 mg/mL inject 150 mg by intramuscular route every 3 months Jul, Active Celexa 40 mg Orally Once a day 1 tablet 24h Dec, Active RESULTS No Results PROCEDURES No Known [...]
--- OUTSIDE RECORDS SUMMARY | 2020-03-21 23:40 | XMS REPORT ---
Author Author Cari YIP Organization [facility] Address [address] [place] [address] Care Team Providers Care Deskidding Machine Operator Name Role Phone BORIS YIP Unavailable PROBLEMS Type Condition ICD9-CM Code MBI36-ZU Code Onset Dates Condition S tatus SNOMED Code Problem PTSD (post-traumatic stress disorder) F43.10 Active 75154988 Problem Non morbid obesity due to excess calories E66.09 Active 035140822 Problem Attention deficit hyperactiv ity disorder (ADHD), predominantly inattentive type F90.0 Active 89189837 Problem Anxiety disorder, unspecified type F41.9 Active 715207185 Problem Binge eating R63.2 Active 5442294 05 Problem Anxiety F41.9 Active 49068455 Problem Binge eating disorder F50.81 Active 630511700 Problem Moderate episode of recurrent major depressive disorder F33.1 Active 126326181 ALLERGIES Substance Reaction Event Type Date Status Amoxicillin hives Drug Allergy Apr, Active ENCOUNTERS Encounter Location Date Diagnosis [facility] [address] [place] [id number] [address] [place] [address] Apr, Cervicalgia M54.2 ; Screenin g for thyroid disorder Z13.29 and Screening for diabetes mellitus Z13.1 [facility] [address] [place] [id number] [address] [place] [address] Apr, PTSD (post-traumatic stress disorder) F43.10 ; Moderate episode of recurrent major depressive disorder F33.1 ; Binge eating disorder F50.81 and Attention deficit hyperactivity disorder (ADHD), predominantly inattentive type F90.0 [facility] [address] [facility] [id number] [address] [place] [address] Feb, PTSD (post-traumatic stress disorder) F43.10 ; Moderate episode of recurrent major depressive disorder F33.1 ; Binge eating disorder F50.81 and Attention deficit hyperactivity disorder (ADHD), predominantly inattentive type F90.0 [facility] [address] [id number] [address] [place] [address] Feb, PTSD (post-traumatic stress disorder) F43.10 [facility] [address] [id number] [address] [place] [address] January, PTSD (post-traumatic stress disorder) F43.10 ; Moderate episode of recurrent major depressive disorder F33.1 ; Binge eating disorder F50.81 and Attention deficit hyperactivity disorder (ADHD), predominantly inattentive type F90.0 [place] [address] [id number] [address] [place] [address] January, PTSD (post-traumatic stress disorder) F43.10 [place] [address] [facility] [id number] [address] [place] [address] Dec, PTSD (post-traumatic stress disorder) F43.10 ; Moderate episode of recurrent major depressive disorder F33.1 ; Binge eating disorder F50.81 ; Attention deficit hyperactivity disorder (ADHD), predominantly inattentive type F90.0 and Anxiety disorder, unspecified type F41.9 [place] [address] [id number] [address] [place] [address] Nov, PTSD (post-traumatic stress disorder) F43.10 [place] [address] [id number] [address] [place] [phone] Aug, [place] [address] [facility] [id number] [address] [place] [phone] Aug, PTSD (post-traumatic stress disorder) F43.10 ; Moderate episode of recurrent major depressive disorder F33.1 ; Binge eating disorder F50.81 ; Attention deficit hyperactivity disorder (ADHD), predominantly inattentive type F90.0 and Anxiety disorder, unspecified type F41.9 [place] [address] [id number] [address] [place] [address] Jul, PTSD (post-traumatic stress disorder) F43.10 ; Moderate episode of recurrent major depressive disorder F33.1 ; Binge eating disorder F50.81 ; Attention deficit hyperactivity disorder (ADHD), predominantly inattentive type F90.0 and Anxiety disorder, unspecified type F41.9 [place] [address] [place] [id number] [address] [place] [phone] Jun, PTSD (post-traumatic stress disorder) F43.10 ; Moderate episode of recurrent major depressive disorder F33.1 ; Binge eating disorder F50.81 ; Attention deficit hyperactivity disorder (ADHD), predominantly inattentive type F90.0 and Anxiety disorder, unspecified type F41.9 [place] [address] [place] [id number] [address] [place] [address] May, Attention deficit hyperactiv ity disorder (ADHD), predominantly inattentive type F90.0 [place] [address] [place] [id number] [place] [address] Apr, PTSD (post-traumatic stress disorder) F43.10 ; Moderate episode of recurrent major depressive disorder F33.1 ; Binge eating disorder F50.81 ; Attention deficit hyperactivity disorder (ADHD), predominantly inattentive type F90.0 and Anxiety disorder, unspecified type F41.9 [place] [address] [address] Apr, PTSD (post-traumatic stress disorder) F43.10 ; Moderate episode of recurrent major depressive disorder F33.1 and Binge eating disorder F50.81 [place] [address] [place] [id number] [address] [place] [address] Mar, Moderate episode of recurren t major depressive disorder F33.1 [place] [address] [place] [id number] [address] [place] [address] January, Moderate episode of recurren t major depressive disorder F33.1 [place] [address] [place] [id number] [address] [place] [address] Dec, Anxiety F41.9 ; Binge eating R63.2 and Non morbid obesity due to excess calories E66.09 [place] [address] [place] [id number] [place] [address] [place] [address] Sep, PTSD (post-traumatic stress disorder) F43.10 ; Non morbid obesity due to excess calories E66.09 and Weight gain R63.5 [facility] [address] [id number] [address] [place] [address] Sep, [facility] [address] [id number] [address] [place] [address] January, Fecal impaction of colon K56 .41 [facility] [address] [id number] [address] [place] [address] Apr, Dysthymia 300.4 [facility] [address] [id number] [address] [place] [address] Mar, [facility] [address] [facility] [id number] [address] [place] [phone] January, [facility] [address] [id number] [address] [place] [phone] Dec, [facility] [address] [id number] [address] [place] [address] Dec, [facility] [address] [facility] [id number] [address] [place] [phone] Oct, [facility] [address] [facility] [id number] [address] [place] [phone] Oct, [facility] [address] [id number] [address] [place] [address] Jul, [facility] [address] [id number] [address] [place] [phone] Jul, [facility] [address] [id number] [address] [place] [phone] Apr, [facility] [address] [id number] [address] [place] [phone] Apr, [facility] [address] [id number] [address] [place] [phone] Mar, [facility] [address] [id number] [address] [place] [address], [place] [address] Mar, [facility] [address] [id number] [address] [place] [address], [place] [address] Mar, [facility] [address] [id number] [address] [place] [address], [place] [address] Mar, [facility] [address] [id number] [address] [place] [address], [place] [address] Mar, [facility] [address] [id number] [address] [place] [address], [place] [address] Mar, [facility] [address] [id number] [address] [place] [address], [place] [address] Feb, [facility] [address] [id number] [address] [place] [address], [place] [address] Dec, [facility] [address] [id number] [address] [place] [address], [place] [address] Dec, [facility] [address] [id number] [address] [place] [address], [place] [address] Nov, [facility] [address] [id number] [address] [place] [address], [place] [address] Sep, [facility] [address] [id number] [address] [place] [address], [place] [address] Sep, [facility] [address] [id number] [address] [place] [address], [place] [address] Apr, [facility] [address] [id number] [address] [place] [address], [place] [address] Dec, [facility] [address] [id number] [address] [place] [address], [place] [address] Nov, [facility] [address] [id number] [address] [place] [address], [place] [address] Jul, [facility] [address] [id number] [address] [place] [phone] 15 Jul, 2010 [facility] [address] [facility] [id number] [address] [place] [address] January, [facility] [address] [facility] [id number] [address] [place] [phone] January, [facility] [address] [facility] [id number] [address] [place] [phone] Dec, [facility] [address] [facility] [id number] [address] [place] [phone] Sep, IMMUNIZATIONS No Known Immunizations SOCIAL HISTORY Never Assessed REASON FOR VISIT Psychiatric f/u -Adair ESCUDERO PLAN OF CARE Activity Details Follow Up 4 Weeks Reason: f/u VITAL SIGNS Height 64 in 2018-04-15 Weight 219.0 lbs 2018-04-15 Heart Rate 108 bpm 2018-04-15 Respiratory Rate 20 2018-04-15 Oximetry 98 % 2018-04-15 BMI 37.59 kg/m2 2018-04-15 Blood pressure systolic 126 mmHg 2018-04-15 Blood pressure diastolic 72 mmHg 2018-04-15 MEDICATIONS Medication Instructions Dosage Frequency Start Date End Date Duration S tatus Concerta 27 MG Orally Once a day 1 tablet in the morning 24h Apr, 28 days Active BusPIRone HCl 10 mg Orally Twice a day 1 tablet 12h Feb, Active Celexa 40 mg Orally Once a day 1 tablet 24h Dec, Active Depo-Provera 150 mg/mL inject 150 mg [...]
--- OUTSIDE RECORDS SUMMARY | 2020-03-21 23:40 | XMS REPORT ---
Author Author Cari Momin Organization [facility] Address [address] [place] [address] Care Team Providers Care Quality Control Checker Name Role Phone ROSALEE Momin Unavailable PROBLEMS Type Condition ICD9-CM Code [id number] Code Onset Dates Condition S tatus SNOMED Code Problem Non morbid obesity due to excess calories E66.09 Active 290700570 Problem PTSD (post-traumatic stress disorder) F43.10 Active 04441162 Problem Anxiety disorder, unspecified type F41.9 Active 912774117 Problem Attention deficit hyperactiv ity disorder (ADHD), predominantly inattentive type F90.0 Active 93421083 Problem Anxiety F41.9 Active 12988056 Problem Binge eating R63.2 Active 4450255 05 Problem Moderate episode of recurrent major depressive disorder F33.1 Active 882686220 Problem Binge eating disorder F50.81 Active 674367701 ALLERGIES No Information ENCOUNTERS Encounter Location Date Diagnosis [facility] [id number] [place] [address] Aug, [facility] [address] [place] [address] Jun, [facility] [address] [address] Jun, PTSD (post-traumatic stress disorder) F4 3.10 ; Moderate episode of recurrent major depressive disorder F33.1 ; Binge eating disorder F50.81 ; Attention deficit hyperactivity disorder (ADHD), predominantly inattentive type F90.0 and Other snf (current) drug therapy Z79.899 [place] [address] [place] [address] May, [place] [address] [place] [address] Apr, [place] [address] [place] [id number] [address] Nov, Attention deficit hyperactivity disorder (ADHD), predominantly inattentive type F90.0 and Moderate episode of recurrent major depressive disorder F33.1 [facility] [address] [place] [id number] [address] Sep, Moderate episode of recurrent major depressive disorder F33.1 ; Anxiety F41.9 and Attention deficit hyperactivity disorder (ADHD), predominantly inattentive type F90.0 [facility] [address] [place] [id number] [address] Sep, Acute otitis media, right H66.91 and Dysfunction of left eustachian tube H69.82 [place] [address] [address] 16 Apr, 2018 Cervicalgia M54.2 ; Screening for thyroi d disorder Z13.29 and Screening for diabetes mellitus Z13.1 [place] [address] [address] Apr, PTSD (post-traumatic stress disorder) F4 3.10 ; Moderate episode of recurrent major depressive disorder F33.1 ; Binge eating disorder F50.81 and Attention deficit hyperactivity disorder (ADHD), predominantly inattentive type F90.0 [place] [address] [address] Feb, PTSD (post-traumatic stress disorder) F4 3.10 ; Moderate episode of recurrent major depressive disorder F33.1 ; Binge eating disorder F50.81 and Attention deficit hyperactivity disorder (ADHD), predominantly inattentive type F90.0 [place] [address] [address] Feb, PTSD (post-traumatic stress disorder) F4 3.10 [place] [address] [address] January, PTSD (post-traumatic stress disorder) F4 3.10 ; Moderate episode of recurrent major depressive disorder F33.1 ; Binge eating disorder F50.81 and Attention deficit hyperactivity disorder (ADHD), predominantly inattentive type F90.0 [place] [address] [address] January, PTSD (post-traumatic stress disorder) F4 3.10 [place] [address] [address] Dec, PTSD (post-traumatic stress disorder) F4 3.10 ; Moderate episode of recurrent major depressive disorder F33.1 ; Binge eating disorder F50.81 ; Attention deficit hyperactivity disorder (ADHD), predominantly inattentive type F90.0 and Anxiety disorder, unspecified type F41.9 [place] [address] [address] Nov, PTSD (post-traumatic stress disorder) F4 3.10 [place] [address] [address] Aug, [place] [address] [address] Aug, PTSD (post-traumatic stress disorder) F4 3.10 ; Moderate episode of recurrent major depressive disorder F33.1 ; Binge eating disorder F50.81 ; Attention deficit hyperactivity disorder (ADHD), predominantly inattentive type F90.0 and Anxiety disorder, unspecified type F41.9 [place] [address] [address] Jul, PTSD (post-traumatic stress disorder) F4 3.10 ; Moderate episode of recurrent major depressive disorder F33.1 ; Binge eating disorder F50.81 ; Attention deficit hyperactivity disorder (ADHD), predominantly inattentive type F90.0 and Anxiety disorder, unspecified type F41.9 [place] [address] [address] Jun, PTSD (post-traumatic stress disorder) F4 3.10 ; Moderate episode of recurrent major depressive disorder F33.1 ; Binge eating disorder F50.81 ; Attention deficit hyperactivity disorder (ADHD), predominantly inattentive type F90.0 and Anxiety disorder, unspecified type F41.9 [place] [address] [address] May, Attention deficit hyperactivity disorder (ADHD), predominantly inattentive type F90.0 [place] [address] [address] Apr, PTSD (post-traumatic stress disorder) F4 3.10 ; Moderate episode of recurrent major depressive disorder F33.1 ; Binge eating disorder F50.81 ; Attention deficit hyperactivity disorder (ADHD), predominantly inattentive type F90.0 and Anxiety disorder, unspecified type F41.9 [facility] [address] [address] Apr, PTSD (post-traumatic stress disorder) F4 3.10 ; Moderate episode of recurrent major depressive disorder F33.1 and Binge eating disorder F50.81 [place] [address] [address] Mar, Moderate episode of recurrent major depr essive disorder F33.1 [place] [address] [address] January, Moderate episode of recurrent major depr essive disorder F33.1 [place] [address] [address] Dec, Anxiety F41.9 ; Binge eating R63.2 and N on morbid obesity due to excess calories E66.09 [place] [address] [address] Sep, PTSD (post-traumatic stress disorder) F4 3.10 ; Non morbid obesity due to excess calories E66.09 and Weight gain R63.5 [place] [address] [address] Sep, [facility] [address] [facility] [id number] [address] [place] [address] January, Fecal impaction of colon K56 .41 [facility] [id number] [place] [address] 11 Apr, 2015 Dysthymia 300.4 [place] [address] [place] [address] Mar, [facility] [address] [facility] [id number] [place] [address] January, [facility] [address] [facility] [id number] [place] [address] Dec, [facility] [address] [id number] [place] [address] Dec, [facility] [address] [id number] [place] [address] Oct, [facility] [address] [id number] [place] [address] Oct, [facility] [address] [id number] [place] [address] Jul, [facility] [address] [id number] [place] [address] Jul, [facility] [address] [id number] [place] [address] Apr, [facility] [address] [id number] [place] [address] Apr, [facility] [address] [id number] [place] [address] Mar, [facility] [address] [id number] [place] [address] Mar, [facility] [address] [id number] [place] [address] Mar, [facility] [address] [facility] [id number] [place] [address] Mar, [facility] [address] [id number] [place] [address] Mar, [facility] [address] [id number] [place] [address] Mar, [facility] [address] [id number] [place] [address] Feb, [facility] [id number] [place] [address] Dec, [facility] [id number] [place] [address] Dec, [facility] [id number] [place] [address] Nov, [facility] [id number] [place] [address] Sep, [facility] [id number] [place] [address] Sep, [facility] [id number] [place] [address] Apr, [facility] [id number] [place] [address] Dec, [facility] [id number] [place] [address] Nov, [facility] [id number] [place] [address] Jul, [facility] [id number] [place] [address] Jul, [facility] [id number] [place] [address] January, [facility] [id number] [place] [address] January, [facility] [id number] [place] [address] Dec, [facility] [id number] [place] [address] Sep, IMMUNIZATIONS No Known Immunizations SOCIAL HISTORY [...]
--- OUTSIDE RECORDS SUMMARY | 2020-03-21 23:40 | XMS REPORT ---
Author Author Cari YIP Organization [facility] Address [address] [place] [address] Care Team Providers Care Lamp Inspector Name Role Phone THEODORA, BORIS Unavailable PROBLEMS Type Condition ICD9-CM Code KID99-IW Code Onset Dates Condition S tatus SNOMED Code Problem PTSD (post-traumatic stress disorder) F43.10 Active 60221229 Problem Non morbid obesity due to excess calories E66.09 Active 248942606 Problem Attention deficit hyperactiv ity disorder (ADHD), predominantly inattentive type F90.0 Active 84735365 Problem Anxiety disorder, unspecified type F41.9 Active 907588929 Problem Binge eating R63.2 Active 4491584 05 Problem Anxiety F41.9 Active 46180879 Problem Binge eating disorder F50.81 Active 789456811 Problem Moderate episode of recurrent major depressive disorder F33.1 Active 507439254 ALLERGIES Substance Reaction Event Type Date Status Amoxicillin hives Drug Allergy January, Active ENCOUNTERS Encounter Location Date Diagnosis [place] [id number] [facility] [id number] [address] [place] [address] May, [facility] [address] [facility] [id number] [address] [place] [address] Apr, Cervicalgia M54.2 ; Screenin g for thyroid disorder Z13.29 and Screening for diabetes mellitus Z13.1 [facility] [address] [id number] [place] [address] Apr, PTSD (post-traumatic stress disorder) F43.10 ; Moderate episode of recurrent major depressive disorder F33.1 ; Binge eating disorder F50.81 and Attention deficit hyperactivity disorder (ADHD), predominantly inattentive type F90.0 [facility] [address] [facility] [id number] [address] [place] [address] Feb, PTSD (post-traumatic stress disorder) F43.10 ; Moderate episode of recurrent major depressive disorder F33.1 ; Binge eating disorder F50.81 and Attention deficit hyperactivity disorder (ADHD), predominantly inattentive type F90.0 [facility] [address] [facility] [id number] [address] [place] [address] Feb, PTSD (post-traumatic stress disorder) F43.10 [place] [address] [facility] [id number] [address] [place] [address] January, PTSD (post-traumatic stress disorder) F43.10 ; Moderate episode of recurrent major depressive disorder F33.1 ; Binge eating disorder F50.81 and Attention deficit hyperactivity disorder (ADHD), predominantly inattentive type F90.0 [place] [address] [facility] [id number] [address] [place] [address] January, PTSD (post-traumatic stress disorder) F43.10 [place] [address] [facility] [id number] [address] [place] [address] Dec, PTSD (post-traumatic stress disorder) F43.10 ; Moderate episode of recurrent major depressive disorder F33.1 ; Binge eating disorder F50.81 ; Attention deficit hyperactivity disorder (ADHD), predominantly inattentive type F90.0 and Anxiety disorder, unspecified type F41.9 [place] [address] [facility] [id number] [address] [place] [address] Nov, PTSD (post-traumatic stress disorder) F43.10 [place] [address] [facility] [id number] [address] [place] [address] Aug, [facility] [address] [facility] [id number] [address] [place] [address] Aug, PTSD (post-traumatic stress disorder) F43.10 ; Moderate episode of recurrent major depressive disorder F33.1 ; Binge eating disorder F50.81 ; Attention deficit hyperactivity disorder (ADHD), predominantly inattentive type F90.0 and Anxiety disorder, unspecified type F41.9 [facility] [address] [facility] [id number] [address] [place] [address] Jul, PTSD (post-traumatic stress disorder) F43.10 ; Moderate episode of recurrent major depressive disorder F33.1 ; Binge eating disorder F50.81 ; Attention deficit hyperactivity disorder (ADHD), predominantly inattentive type F90.0 and Anxiety disorder, unspecified type F41.9 [place] [address] [place] [id number] [place] [address] Jun, PTSD (post-traumatic stress disorder) F43.10 ; Moderate episode of recurrent major depressive disorder F33.1 ; Binge eating disorder F50.81 ; Attention deficit hyperactivity disorder (ADHD), predominantly inattentive type F90.0 and Anxiety disorder, unspecified type F41.9 [place] [address] [facility] [id number] [address] [place] [address] May, Attention deficit hyperactiv ity disorder (ADHD), predominantly inattentive type F90.0 [place] [address] [id number] [place] [address] Apr, PTSD (post-traumatic stress disorder) F43.10 ; Moderate episode of recurrent major depressive disorder F33.1 ; Binge eating disorder F50.81 ; Attention deficit hyperactivity disorder (ADHD), predominantly inattentive type F90.0 and Anxiety disorder, unspecified type F41.9 [place] [address] [place] [id number] [place] [address] Apr, PTSD (post-traumatic stress disorder) F43.10 ; Moderate episode of recurrent major depressive disorder F33.1 and Binge eating disorder F50.81 [place] [address] [place] [id number] [place] [address] Mar, Moderate episode of recurren t major depressive disorder F33.1 [place] [address] [place] [id number] [place] [address] January, Moderate episode of recurren t major depressive disorder F33.1 [place] [address] [facility] [id number] [address] [place] [address] Dec, Anxiety F41.9 ; Binge eating R63.2 and Non morbid obesity due to excess calories E66.09 [facility] [address] [id number] [address] [place] [address] Sep, PTSD (post-traumatic stress disorder) F43.10 ; Non morbid obesity due to excess calories E66.09 and Weight gain R63.5 [facility] [address] [id number] [address] [place] [address] Sep, [facility] [address] [id number] [address] [place] [address] January, Fecal impaction of colon K56 .41 [facility] [address] [id number] [address] [place] [address] Apr, Dysthymia 300.4 [facility] [address] [id number] [address] [place] [address] Mar, [facility] [address] [id number] [address] [place] [address] January, [facility] [address] [id number] [address] [place] [address] Dec, [facility] [address] [id number] [address] [place] [address] Dec, [facility] [address] [facility] [id number] [address] [place] [address] Oct, [facility] [address] [id number] [address] [place] [address] Oct, [facility] [address] [id number] [address] [place] [address] Jul, [facility] [address] [id number] [address] [place] [address] Jul, [facility] [address] [id number] [address] [place] [address] Apr, [facility] [address] [id number] [address] [place] [address] Apr, [facility] [address] [id number] [address] [place] [address], [place] [address] Mar, [facility] [address] [id number] [address] [place] [address], [place] [address] Mar, [facility] [address] [id number] [address] [place] [address], [place] [address] Mar, [facility] [address] [id number] [address] [place] [address], [place] [address] Mar, [facility] [address] [id number] [address] [place] [address], [place] [address] Mar, [facility] [address] [id number] [address] [place] [address], [place] [address] Mar, [facility] [address] [id number] [address] [place] [address], [place] [address] Feb, [facility] [address] [id number] [address] [place] [address], [place] [address] Dec, [facility] [address] [id number] [address] [place] [address], [place] [address] Dec, [facility] [address] [id number] [address] [place] [address], [place] [address] Nov, [facility] [address] [id number] [address] [place] [address], [place] [address] Sep, [facility] [address] [id number] [address] [place] [address], [place] [address] Sep, [facility] [address] [id number] [address] [place] [address], [place] [address] Apr, [facility] [address] [id number] [address] [place] [address], [place] [address] Dec, [facility] [address] [id number] [address] [place] [address], [place] [address] Nov, [facility] [address] [id number] [address] [place] [address] 10 Jul, 2011 [facility] [address] [facility] [id number] [address] [place] [address] 15 Jul, 2010 [facility] [address] [facility] [id number] [address] [place] [address] January, [facility] [address] [facility] [id number] [address] [place] [address] January, [facility] [address] [facility] [id number] [address] [place] [address] Dec, [facility] [address] [facility] [id number] [address] [place] [address] Sep, IMMUNIZATIONS No Known Immunizations SOCIAL HISTORY Never Assessed REASON FOR VISIT Psychiatric f/u- Adair ESCUDERO , contract PLAN OF CARE Activity Details Follow Up 2 Weeks Reason:BH f/u VITAL SIGNS Height 64 in 2018-02-02 Weight 224.7 lbs 2018-02-02 Heart Rate 110 bpm 2018-02-02 Respiratory Rate 20 2018-02-02 BMI 38.57 kg/m2 2018-02-02 Blood pressure systolic 125 mmHg 2018-02-02 Blood pressure diastolic 78 mmHg 2018-02-02 MEDICATIONS Medication Instructions Dosage Frequency Start Date End Date Duration S tatus Depo-Provera 150 mg/mL inject 150 mg by intramuscular route every 3 months Jul, Active Celexa 40 mg Orally Once a day 1 tablet 24h Dec, Active Gabapentin 300 MG Orally Twice a day as needed 1 capsule January, 30 day(s) Active Concerta 18 mg Orally Once a day 1 tablet in the morning 24h January, Active RESULTS No Results PROCEDURES No Known [...]
--- OUTSIDE RECORDS SUMMARY | 2020-03-21 23:40 | XMS REPORT ---
Author Author Cari HARE Organization [facility] Address [address] [place] [address] Care Team Providers Care Psychiatric Technician Name Role Phone MAKI HARE Unavailable PROBLEMS Type Condition ICD9-CM Code [id number] Code Onset Dates Condition S tatus SNOMED Code Problem Non morbid obesity due to excess calories E66.09 Active 381299398 Problem PTSD (post-traumatic stress disorder) F43.10 Active 37521244 Problem Anxiety disorder, unspecified type F41.9 Active 744829618 Problem Attention deficit hyperactiv ity disorder (ADHD), predominantly inattentive type F90.0 Active 55370383 Problem Anxiety F41.9 Active 30022276 Problem Binge eating R63.2 Active 2894155 05 Problem Moderate episode of recurrent major depressive disorder F33.1 Active 997985245 Problem Binge eating disorder F50.81 Active 407251838 ALLERGIES No Information ENCOUNTERS Encounter Location Date Diagnosis [facility] [id number] [place] [address] Aug, [facility] [address] [place] [id number] [place] [address] Jun, [facility] [address] [address] Jun, PTSD (post-traumatic stress disorder) F4 3.10 ; Moderate episode of recurrent major depressive disorder F33.1 ; Binge eating disorder F50.81 ; Attention deficit hyperactivity disorder (ADHD), predominantly inattentive type F90.0 and Other retirement (current) drug therapy Z79.899 [facility] [address] [place] [address] [address] May, [facility] [address] [place] [address] Apr, [place] [address] [address] [place] [id number] [address] Nov, Attention deficit hyperactivity disorder (ADHD), predominantly inattentive type F90.0 and Moderate episode of recurrent major depressive disorder F33.1 [facility] [address] [place] [id number] [address] Sep, Moderate episode of recurrent major depressive disorder F33.1 ; Anxiety F41.9 and Attention deficit hyperactivity disorder (ADHD), predominantly inattentive type F90.0 [facility] [address] [place] [id number] [address] Sep, Acute otitis media, right H66.91 and Dysfunction of left eustachian tube H69.82 [place] [address] [address] Apr, Cervicalgia M54.2 ; Screening for thyroi d disorder Z13.29 and Screening for diabetes mellitus Z13.1 [place] [address] [address] Apr, PTSD (post-traumatic stress disorder) F4 3.10 ; Moderate episode of recurrent major depressive disorder F33.1 ; Binge eating disorder F50.81 and Attention deficit hyperactivity disorder (ADHD), predominantly inattentive type F90.0 [place] [address] [address] Feb, PTSD (post-traumatic stress disorder) F4 3.10 ; Moderate episode of recurrent major depressive disorder F33.1 ; Binge eating disorder F50.81 and Attention deficit hyperactivity disorder (ADHD), predominantly inattentive type F90.0 [place] [address] [address] Feb, PTSD (post-traumatic stress disorder) F4 3.10 [place] [address] [address] January, PTSD (post-traumatic stress disorder) F4 3.10 ; Moderate episode of recurrent major depressive disorder F33.1 ; Binge eating disorder F50.81 and Attention deficit hyperactivity disorder (ADHD), predominantly inattentive type F90.0 [place] [id number] [place] [address] January, PTSD (post-traumatic stress disorder) F4 3.10 [place] [address] [address] Dec, PTSD (post-traumatic stress disorder) F4 3.10 ; Moderate episode of recurrent major depressive disorder F33.1 ; Binge eating disorder F50.81 ; Attention deficit hyperactivity disorder (ADHD), predominantly inattentive type F90.0 and Anxiety disorder, unspecified type F41.9 [place] [address] [address] Nov, PTSD (post-traumatic stress disorder) F4 3.10 [place] [address] [address] Aug, [address] [address] Aug, PTSD (post-traumatic stress disorder) F4 3.10 ; Moderate episode of recurrent major depressive disorder F33.1 ; Binge eating disorder F50.81 ; Attention deficit hyperactivity disorder (ADHD), predominantly inattentive type F90.0 and Anxiety disorder, unspecified type F41.9 [place] [address] [address] Jul, PTSD (post-traumatic stress disorder) F4 3.10 ; Moderate episode of recurrent major depressive disorder F33.1 ; Binge eating disorder F50.81 ; Attention deficit hyperactivity disorder (ADHD), predominantly inattentive type F90.0 and Anxiety disorder, unspecified type F41.9 [place] [address] [address] Jun, PTSD (post-traumatic stress disorder) F4 3.10 ; Moderate episode of recurrent major depressive disorder F33.1 ; Binge eating disorder F50.81 ; Attention deficit hyperactivity disorder (ADHD), predominantly inattentive type F90.0 and Anxiety disorder, unspecified type F41.9 [place] [address] [address] May, Attention deficit hyperactivity disorder (ADHD), predominantly inattentive type F90.0 [place] [address] [address] Apr, PTSD (post-traumatic stress disorder) F4 3.10 ; Moderate episode of recurrent major depressive disorder F33.1 ; Binge eating disorder F50.81 ; Attention deficit hyperactivity disorder (ADHD), predominantly inattentive type F90.0 and Anxiety disorder, unspecified type F41.9 [place] [address] [address] Apr, PTSD (post-traumatic stress disorder) F4 3.10 ; Moderate episode of recurrent major depressive disorder F33.1 and Binge eating disorder F50.81 [place] [address] [address] Mar, Moderate episode of recurrent major depr essive disorder F33.1 [place] [address] [address] January, Moderate episode of recurrent major depr essive disorder F33.1 [place] [address] [address] Dec, Anxiety F41.9 ; Binge eating R63.2 and N on morbid obesity due to excess calories E66.09 [place] [address] [address] Sep, PTSD (post-traumatic stress disorder) F4 3.10 ; Non morbid obesity due to excess calories E66.09 and Weight gain R63.5 [place] [address] [address] Sep, [facility] [address] [facility] [id number] [place] [address] January, Fecal impaction of colon K56 .41 [place] [address] [address] 11 Apr, 2015 Dysthymia 300.4 [place] [address] [address] Mar, [facility] [address] [id number] [place] [address] January, [facility] [address] [id number] [place] [address] Dec, [facility] [address] [id number] [place] [address] Dec, [facility] [address] [id number] [place] [address] Oct, [facility] [address] [id number] [place] [address] Oct, [facility] [address] [id number] [place] [address] Jul, [facility] [address] [id number] [place] [address] Jul, [facility] [address] [id number] [place] [address] Apr, [facility] [address] [id number] [place] [address] Apr, [facility] [address] [id number] [place] [address] Mar, [facility] [address] [id number] [place] [address] Mar, [facility] [address] [id number] [place] [address] Mar, [facility] [address] [id number] [place] [address] Mar, [facility] [address] [id number] [place] [address] Mar, [facility] [address] [id number] [place] [address] Mar, [facility] [address] [id number] [place] [address] Feb, [facility] [address] [id number] [place] [address] 08 Dec, 2012 [facility] [id number] [place] [address] Dec, [facility] [address] [id number] [place] [address] Nov, [facility] [id number] [place] [address] Sep, [facility] [id number] [place] [address] Sep, [facility] [id number] [place] [address] Apr, [facility] [id number] [place] [address] Dec, [facility] [id number] [place] [address] Nov, [facility] [id number] [place] [address] Jul, [facility] [id number] [place] [address] Jul, [facility] [id number] [place] [address] January, [facility] [id number] [place] [address] January, [facility] [id number] [place] [address] Dec, [facility] [id number] [place] [address] Sep, IMMUNIZATIONS No Known Immunizations SOCIAL HISTORY Never Assessed REASON FOR VISIT PLAN OF CARE VITAL SIGNS Height 64 in 2014-03-16 Weight 207.8 lbs 2014-03-16 Temperature 98.8 degrees Fahrenheit 2014-03-16 Heart Rate 88 bpm 2014-03-16 Respiratory Rate 16 2014-03-16 Blood pressure systolic 116 mmHg 2014-03-16 Blood pressure diastolic 74 mmHg 2014-03-16 MEDICATIONS Unknown Medications RESULTS No Results PROCEDURES [...]
--- OUTSIDE RECORDS SUMMARY | 2020-03-21 23:40 | XMS REPORT ---
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 Name Role Phone ROGER RIVERA Unavailable PROBLEMS Type Condition ICD9-CM Code [id number] Code Onset Dates Condition S tatus SNOMED Code Problem PTSD (post-traumatic stress disorder) F43.10 Active 79244923 Problem Non morbid obesity due to excess calories E66.09 Active 330467193 Problem Attention deficit hyperactiv ity disorder (ADHD), predominantly inattentive type F90.0 Active 21950082 Problem Anxiety disorder, unspecified type F41.9 Active 972728718 Problem Binge eating R63.2 Active 9645415 05 Problem Anxiety F41.9 Active 35905871 Problem Binge eating disorder F50.81 Active 440902828 Problem Moderate episode of recurrent major depressive disorder F33.1 Active 929460531 ALLERGIES Substance Reaction Event Type Date Status Amoxicillin hives Drug Allergy Apr, Active ENCOUNTERS Encounter Location Date Diagnosis [facility] [id number] [place] [address] Apr, Cervicalgia M54.2 ; Screenin g for thyroid disorder Z13.29 and Screening for diabetes mellitus Z13.1 [facility] [id number] [place] [address] Apr, PTSD (post-traumatic stress disorder) F43.10 ; Moderate episode of recurrent major depressive disorder F33.1 ; Binge eating disorder F50.81 and Attention deficit hyperactivity disorder (ADHD), predominantly inattentive type F90.0 [facility] [id number] [place] [address] Feb, PTSD (post-traumatic stress disorder) F43.10 ; Moderate episode of recurrent major depressive disorder F33.1 ; Binge eating disorder F50.81 and Attention deficit hyperactivity disorder (ADHD), predominantly inattentive type F90.0 [facility] [address] [id number] [address] [place] [address] Feb, PTSD (post-traumatic stress disorder) F43.10 [facility] [address] [facility] [id number] [address] [place] [address] January, PTSD (post-traumatic stress disorder) F43.10 ; Moderate episode of recurrent major depressive disorder F33.1 ; Binge eating disorder F50.81 and Attention deficit hyperactivity disorder (ADHD), predominantly inattentive type F90.0 [place] [address] [id number] [address] [place] [address] January, PTSD (post-traumatic stress disorder) F43.10 [place] [address] [facility] [id number] [address] [place] [address] Dec, PTSD (post-traumatic stress disorder) F43.10 ; Moderate episode of recurrent major depressive disorder F33.1 ; Binge eating disorder F50.81 ; Attention deficit hyperactivity disorder (ADHD), predominantly inattentive type F90.0 and Anxiety disorder, unspecified type F41.9 [place] [address] [id number] [address] [place] [address] Nov, PTSD (post-traumatic stress disorder) F43.10 [place] [address] [id number] [address] [place] [address] Aug, [facility] [address] [facility] [id number] [address] [place] [address] Aug, PTSD (post-traumatic stress disorder) F43.10 ; Moderate episode of recurrent major depressive disorder F33.1 ; Binge eating disorder F50.81 ; Attention deficit hyperactivity disorder (ADHD), predominantly inattentive type F90.0 and Anxiety disorder, unspecified type F41.9 [facility] [address] [facility] [id number] [address] [place] [address] Jul, PTSD (post-traumatic stress disorder) F43.10 ; Moderate episode of recurrent major depressive disorder F33.1 ; Binge eating disorder F50.81 ; Attention deficit hyperactivity disorder (ADHD), predominantly inattentive type F90.0 and Anxiety disorder, unspecified type F41.9 [place] [id number] [place] [address] Jun, PTSD (post-traumatic stress disorder) F43.10 ; Moderate episode of recurrent major depressive disorder F33.1 ; Binge eating disorder F50.81 ; Attention deficit hyperactivity disorder (ADHD), predominantly inattentive type F90.0 and Anxiety disorder, unspecified type F41.9 [place] [id number] [place] [address] May, Attention deficit hyperactiv ity disorder (ADHD), predominantly inattentive type F90.0 [place] [id number] [place] [address] Apr, PTSD (post-traumatic stress disorder) F43.10 ; Moderate episode of recurrent major depressive disorder F33.1 ; Binge eating disorder F50.81 ; Attention deficit hyperactivity disorder (ADHD), predominantly inattentive type F90.0 and Anxiety disorder, unspecified type F41.9 [place] [id number] [place] [address] Apr, PTSD (post-traumatic stress disorder) F43.10 ; Moderate episode of recurrent major depressive disorder F33.1 and Binge eating disorder F50.81 [place] [id number] [place] [address] Mar, Moderate episode of recurren t major depressive disorder F33.1 [place] [id number] [place] [address] January, Moderate episode of recurren t major depressive disorder F33.1 [place] [id number] [place] [address] Dec, Anxiety F41.9 ; Binge eating R63.2 and Non morbid obesity due to excess calories E66.09 [place] [id number] [place] [address] Sep, PTSD (post-traumatic stress disorder) F43.10 ; Non morbid obesity due to excess calories E66.09 and Weight gain R63.5 [facility] [address] [id number] [address] [place] [address] Sep, [facility] [address] [id number] [address] [place] [address] January, Fecal impaction of colon K56 .41 [facility] [address] [id number] [address] [place] [address] Apr, Dysthymia 300.4 [facility] [address] [id number] [address] [place] [address] Mar, [facility] [address] [facility] [id number] [address] [place] [address] January, [facility] [address] [id number] [address] [place] [address] Dec, [facility] [address] [id number] [address] [place] [address] Dec, [facility] [address] [facility] [id number] [address] [place] [address] Oct, [facility] [address] [facility] [id number] [address] [place] [address] Oct, [facility] [address] [facility] [id number] [address] [place] [address] Jul, [facility] [address] [id number] [address] [place] [address] Jul, [facility] [address] [id number] [address] [place] [address] Apr, [facility] [address] [facility] [id number] [address] [place] [address] Apr, [facility] [address] [id number] [address] [place] [address] Mar, [facility] [address] [id number] [address] [place] [address], [place] [address] Mar, [facility] [address] [id number] [address] [place] [address], [place] [address] Mar, [facility] [address] [id number] [address] [place] [address], [place] [address] Mar, [facility] [address] [id number] [address] [place] [address], [place] [address] Mar, [facility] [address] [id number] [address] [place] [address], [place] [address] Mar, [facility] [address] [id number] [address] [place] [address], [place] [address] Feb, [facility] [address] [id number] [address] [place] [address], [place] [address] Dec, [facility] [address] [id number] [address] [place] [address], [place] [address] Dec, [facility] [address] [id number] [address] [place] [address], [place] [address] Nov, [facility] [address] [id number] [address] [place] [address], [place] [address] Sep, [facility] [address] [id number] [address] [place] [address], [place] [address] Sep, [facility] [address] [id number] [address] [place] [address], [place] [address] Apr, [facility] [address] [id number] [address] [place] [address], [place] [address] Dec, [facility] [address] [id number] [address] [place] [address], [place] [address] Nov, [facility] [address] [id number] [address] [place] [address], [place] [address] Jul, [facility] [address] [facility] [id number] [address] [place] [address] Jul, [facility] [address] [facility] [id number] [address] [place] [address] January, [facility] [address] [facility] [id number] [address] [place] [address] January, [facility] [address] [facility] [id number] [address] [place] [address] Dec, [facility] [address] [facility] [id number] [address] [place] [address] Sep, IMMUNIZATIONS No Known Immunizations SOCIAL HISTORY Never Assessed REASON FOR VISIT Swollen glands--tcuppettRN, Swollen lymphnode on left side of neck and then tend erness on right side. Feels like she has fluid in left ear, Sees and they are recommending pt have thyroid checked and also screening for DM. PLAN OF CARE Activity Details Follow Up prn Reason: VITAL SIGNS Height 64 in 2018-04-29 Weight 220.4 lbs 2018-04-29 Temperature 99.4 degrees Fahrenheit 2018-04-29 Heart Rate 84 bpm 2018-04-29 Respiratory Rate 20 2018-04-29 BMI 37.83 kg/m2 2018-04-29 Blood pressure systolic 104 mmHg 2018-04-29 Blood pressure diastolic 72 mmHg 2018-04-29 MEDICATIONS Medication Instructions Dosage Frequency Start Date End Date Duration S jared BusPIRone HCl 10 mg Orally Twice a day 1 tablet 12h Feb, Active Depo-Provera 150 mg/mL inject 150 mg by intramuscular route every 3 months Jul, Active Celexa 40 mg Orally Once a day 1 tablet 24h Dec, Active Concerta 27 MG Orally Once a day 1 tablet in the morning 24h Apr, 28 days Active RESULTS No Results PROCEDURES Procedure Date Ordered Result Body Site ASSAY THYROID STIM HORMONE Apr 29, 2018 COMPREHEN METABOLIC PANEL Apr 29, 2018 VENIPUNCT, ROUTINE* Apr 29, 2018 INSTRUCTIONS MEDICATIONS ADMINISTERED No Known Medications MEDICAL (GENERAL) HISTORY Type Description Date Medical History depression Medical History PTSD Medical History obesity Medical History denies any hx of heart problem or seizur e 05/14/17 Medical History hx of anemia Hospitalization History childbirth only Hospitalization History Denies any past psych hospitalizatio n
--- OUTSIDE RECORDS SUMMARY | 2020-03-21 23:41 | XMS REPORT ---
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 Name Role Phone THEODORA, BORIS Unavailable PROBLEMS Type Condition ICD9-CM Code EXO36-MO Code Onset Dates Condition S tatus SNOMED Code Problem PTSD (post-traumatic stress disorder) F43.10 Active 39329305 Problem Non morbid obesity due to excess calories E66.09 Active 546710462 Problem Attention deficit hyperactiv ity disorder (ADHD), predominantly inattentive type F90.0 Active 52446058 Problem Anxiety disorder, unspecified type F41.9 Active 208352378 Problem Binge eating R63.2 Active 9251712 05 Problem Anxiety F41.9 Active 01552564 Problem Binge eating disorder F50.81 Active 734108455 Problem Moderate episode of recurrent major depressive disorder F33.1 Active 125080235 ALLERGIES No Information ENCOUNTERS Encounter Location Date Diagnosis [facility] [address] [id number] [address] [place] [phone] January, [facility] [address] [id number] [address] [place] [phone] Dec, PTSD (post-traumatic stress disorder) F43.10 ; Moderate episode of recurrent major depressive disorder F33.1 ; Binge eating disorder F50.81 ; Attention deficit hyperactivity disorder (ADHD), predominantly inattentive type F90.0 and Anxiety disorder, unspecified type F41.9 [facility] [address] [facility] [id number] [address] [place] [phone] Nov, PTSD (post-traumatic stress disorder) F43.10 [facility] [address] [facility] [id number] [address] [place] [phone] Aug, [facility] [address] [id number] [address] [place] [phone] Aug, PTSD (post-traumatic stress disorder) F43.10 ; Moderate episode of recurrent major depressive disorder F33.1 ; Binge eating disorder F50.81 ; Attention deficit hyperactivity disorder (ADHD), predominantly inattentive type F90.0 and Anxiety disorder, unspecified type F41.9 [place] [address] [place] [id number] [address] [place] [phone] Jul, PTSD (post-traumatic stress disorder) F43.10 ; Moderate episode of recurrent major depressive disorder F33.1 ; Binge eating disorder F50.81 ; Attention deficit hyperactivity disorder (ADHD), predominantly inattentive type F90.0 and Anxiety disorder, unspecified type F41.9 [place] [address] [id number] [address] [place] [phone] Jun, PTSD (post-traumatic stress disorder) F43.10 ; Moderate episode of recurrent major depressive disorder F33.1 ; Binge eating disorder F50.81 ; Attention deficit hyperactivity disorder (ADHD), predominantly inattentive type F90.0 and Anxiety disorder, unspecified type F41.9 [place] [address] [place] [id number] [address] [place] [phone] May, Attention deficit hyperactiv ity disorder (ADHD), predominantly inattentive type F90.0 [place] [address] [place] [id number] [address] [place] [phone] Apr, PTSD (post-traumatic stress disorder) F43.10 ; Moderate episode of recurrent major depressive disorder F33.1 ; Binge eating disorder F50.81 ; Attention deficit hyperactivity disorder (ADHD), predominantly inattentive type F90.0 and Anxiety disorder, unspecified type F41.9 [place] [address] [place] [id number] [address] [place] [phone] Apr, PTSD (post-traumatic stress disorder) F43.10 ; Moderate episode of recurrent major depressive disorder F33.1 and Binge eating disorder F50.81 [place] [address] [place] [id number] [address] [place] [phone] Mar, Moderate episode of recurren t major depressive disorder F33.1 [facility] [address] [id number] [address] [place] [phone] January, Moderate episode of recurren t major depressive disorder F33.1 [facility] [address] [facility] [id number] [address] [place] [phone] Dec, Anxiety F41.9 ; Binge eating R63.2 and Non morbid obesity due to excess calories E66.09 [facility] [address] [id number] [address] [place] [phone] Sep, PTSD (post-traumatic stress disorder) F43.10 ; Non morbid obesity due to excess calories E66.09 and Weight gain R63.5 [facility] [address] [facility] [id number] [address] [place] [phone] Sep, [facility] [address] [facility] [id number] [address] [place] [phone] January, Fecal impaction of colon K56 .41 [facility] [address] [facility] [id number] [address] [place] [phone] Apr, Dysthymia 300.4 [facility] [address] [facility] [id number] [address] [place] [phone] Mar, [facility] [address] [facility] [id number] [address] [place] [phone] January, [facility] [address] [facility] [id number] [address] [place] [phone] Dec, [facility] [address] [facility] [id number] [address] [place] [phone] Dec, [facility] [address] [facility] [id number] [address] [place] [phone] Oct, [facility] [address] [facility] [id number] [address] [place] [phone] Oct, [facility] [address] [facility] [id number] [address] [place] [phone] Jul, [facility] [address] [id number] [address] [place] [address], [place] [phone] Jul, [facility] [address] [id number] [address] [place] [address], [place] [phone] Apr, [facility] [address] [id number] [address] [place] [address], [place] [address] Apr, [facility] [address] [id number] [address] [place] [address], [place] [address] Mar, [facility] [address] [id number] [address] [place] [address], [place] [address] Mar, [facility] [address] [id number] [address] [place] [address], [place] [address] Mar, [facility] [address] [id number] [address] [place] [address], [place] [address] Mar, [facility] [address] [id number] [address] [place] [address], [place] [address] Mar, [facility] [address] [id number] [address] [place] [address], [place] [address] Mar, [facility] [address] [id number] [address] [place] [address], [place] [address] Feb, [facility] [address] [id number] [address] [place] [address], [place] [address] Dec, [facility] [address] [id number] [address] [place] [address], [place] [address] Dec, [facility] [address] [id number] [address] [place] [address], [place] [address] Nov, [facility] [address] [id number] [address] [place] [address], [place] [address] Sep, [facility] [address] [id number] [address] [place] [address], [place] [address] Sep, [facility] [address] [id number] [address] [place] [phone] Apr, [facility] [address] [id number] [address] [place] [phone] Dec, [facility] [address] [id number] [address] [place] [phone] Nov, [facility] [address] [id number] [address] [place] [phone] Jul, [facility] [address] [id number] [address] [place] [phone] Jul, [facility] [address] [id number] [address] [place] [phone] January, [facility] [address] [id number] [address] [place] [phone] January, [facility] [address] [id number] [address] [place] [phone] Dec, [facility] [address] [id number] [address] [place] [phone] Sep, IMMUNIZATIONS No Known Immunizations SOCIAL HISTORY Never Assessed REASON FOR VISIT adderall 06/12/2017 PLAN OF CARE VITAL SIGNS MEDICATIONS Medication Instructions Dosage Frequency Start Date End Date Duration S tatus Adderall 5 mg Orally twice a day 1 tablet 12h May, 2 8 days Active RESULTS No Results PROCEDURES No [...]
--- OUTSIDE RECORDS SUMMARY | 2020-03-21 23:41 | XMS REPORT ---
Author Author Cari YIP [facility] Address [address] [place] [address] Care Team Providers Care Tellers Supervisor Name Role Phone THEODORA, BORIS Unavailable PROBLEMS Type Condition ICD9-CM Code FHN86-VG Code Onset Dates Condition S tatus SNOMED Code Problem PTSD (post-traumatic stress disorder) F43.10 Active 25381061 Problem Non morbid obesity due to excess calories E66.09 Active 008546045 Problem Attention deficit hyperactiv ity disorder (ADHD), predominantly inattentive type F90.0 Active 03313264 Problem Anxiety disorder, unspecified type F41.9 Active 309724366 Problem Binge eating R63.2 Active 8226524 05 Problem Anxiety F41.9 Active 38037020 Problem Binge eating disorder F50.81 Active 880943604 Problem Moderate episode of recurrent major depressive disorder F33.1 Active 590973434 ALLERGIES Substance Reaction Event Type Date Status Amoxicillin hives Drug Allergy Apr, Active ENCOUNTERS Encounter Location Date Diagnosis [facility] [address] [facility] [id number] [address] [phone] January, [facility] [address] [facility] [id number] [address] [place] [phone] Dec, PTSD (post-traumatic stress disorder) F43.10 ; Moderate episode of recurrent major depressive disorder F33.1 ; Binge eating disorder F50.81 ; Attention deficit hyperactivity disorder (ADHD), predominantly inattentive type F90.0 and Anxiety disorder, unspecified type F41.9 [facility] [address] [facility] [id number] [address] [place] [phone] Nov, PTSD (post-traumatic stress disorder) F43.10 [facility] [address] [facility] [id number] [address] [place] [phone] Aug, [place] [address] [place] [id number] [address] [place] [phone] 11 Aug, 2017 PTSD (post-traumatic stress disorder) F43.10 ; Moderate episode of recurrent major depressive disorder F33.1 ; Binge eating disorder F50.81 ; Attention deficit hyperactivity disorder (ADHD), predominantly inattentive type F90.0 and Anxiety disorder, unspecified type F41.9 [place] [address] [place] [id number] [address] [place] [phone] Jul, PTSD (post-traumatic stress disorder) F43.10 ; Moderate episode of recurrent major depressive disorder F33.1 ; Binge eating disorder F50.81 ; Attention deficit hyperactivity disorder (ADHD), predominantly inattentive type F90.0 and Anxiety disorder, unspecified type F41.9 [place] [address] [place] [id number] [address] [place] [phone] Jun, PTSD (post-traumatic stress disorder) F43.10 ; Moderate episode of recurrent major depressive disorder F33.1 ; Binge eating disorder F50.81 ; Attention deficit hyperactivity disorder (ADHD), predominantly inattentive type F90.0 and Anxiety disorder, unspecified type F41.9 [place] [address] [place] [id number] [address] [place] [phone] May, Attention deficit hyperactiv ity disorder (ADHD), predominantly inattentive type F90.0 [place] [address] [place] [id number] [address] [place] [phone] Apr, PTSD (post-traumatic stress disorder) F43.10 ; Moderate episode of recurrent major depressive disorder F33.1 ; Binge eating disorder F50.81 ; Attention deficit hyperactivity disorder (ADHD), predominantly inattentive type F90.0 and Anxiety disorder, unspecified type F41.9 [place] [address] [place] [id number] [address] [place] [phone] 16 Apr, 2017 PTSD (post-traumatic stress disorder) F43.10 ; Moderate episode of recurrent major depressive disorder F33.1 and Binge eating disorder F50.81 [place] [address] [place] [id number] [address] [place] [phone] Mar, Moderate episode of recurren t major depressive disorder F33.1 [facility] [address] [facility] [id number] [address] [place] [phone] 18 Jan, 2017 Moderate episode of recurren t major depressive disorder F33.1 [facility] [address] [place] [id number] [address] [place] [phone] 04 Dec, 2016 Anxiety F41.9 ; Binge eating R63.2 and Non morbid obesity due to excess calories E66.09 [facility] [address] [facility] [id number] [address] [place] [phone] Sep, PTSD (post-traumatic stress disorder) F43.10 ; Non morbid obesity due to excess calories E66.09 and Weight gain R63.5 [facility] [address] [place] [id number] [address] [place] [phone] Sep, [facility] [address] [facility] [id number] [address] [place] [phone] January, Fecal impaction of colon K56 .41 [facility] [address] [facility] [id number] [address] [place] [phone] Apr, Dysthymia 300.4 [facility] [address] [facility] [id number] [address] [place] [phone] Mar, [facility] [address] [facility] [id number] [address] [place] [phone] January, [facility] [address] [place] [id number] [address] [place] [phone] Dec, [facility] [address] [facility] [id number] [address] [place] [phone] Dec, [facility] [address] [place] [id number] [address] [place] [phone] Oct, [facility] [address] [place] [id number] [address] [place] [phone] Oct, [facility] [address] [id number] [address] [place] [address], [place] [address] Jul, [facility] [address] [id number] [address] [place] [address], [place] [address] Jul, [facility] [address] [id number] [address] [place] [address], [place] [address] Apr, [facility] [address] [id number] [address] [place] [address], [place] [address] Apr, [facility] [address] [id number] [address] [place] [address], [place] [address] Mar, [facility] [address] [id number] [address] [place] [address], [place] [address] Mar, [facility] [address] [id number] [address] [place] [address], [place] [address] Mar, [facility] [address] [id number] [address] [place] [address], [place] [address] Mar, [facility] [address] [id number] [address] [place] [address], [place] [address] Mar, [facility] [address] [id number] [address] [place] [address], [place] [address] Mar, [facility] [address] [id number] [address] [place] [address], [place] [address] Feb, [facility] [address] [id number] [address] [place] [address], [place] [address] Dec, [facility] [address] [id number] [address] [place] [address], [place] [address] Dec, [facility] [address] [id number] [address] [place] [address], [place] [address] Nov, [facility] [address] [id number] [address] [place] [address], [place] [address] Sep, [facility] [address] [id number] [address] [place] [address], [place] [address] Sep, [facility] [address] [id number] [address] [place] [phone] Apr, [facility] [address] [id number] [address] [place] [phone] Dec, [facility] [address] [id number] [address] [place] [phone] Nov, [facility] [address] [id number] [address] [place] [phone] Jul, [facility] [address] [id number] [address] [place] [phone] Jul, [facility] [address] [id number] [address] [place] [phone] January, [facility] [address] [id number] [address] [place] [phone] January, [facility] [address] [id number] [address] [place] [address] Dec, [facility] [address] [id number] [address] [place] [phone] Sep, IMMUNIZATIONS No Known Immunizations SOCIAL HISTORY Never Assessed REASON FOR VISIT intake [place] PLAN OF CARE Activity Details Follow Up 4 Weeks Reason: f/u VITAL SIGNS Height 64 in 2017-05-14 Weight 236.5 lbs 2017-05-14 Heart Rate 84 bpm 2017-05-14 Respiratory Rate 20 2017-05-14 BMI 40.59 kg/m2 2017-05-14 Blood pressure systolic 130 mmHg 2017-05-14 Blood pressure diastolic 87 mmHg 2017-05-14 MEDICATIONS Medication Instructions Dosage Frequency Start Date End Date Duration S tatus Depo-Provera 150 mg/mL inject 150 mg by intramuscular route every 3 months Jul, Active Prazosin HCl 1 MG Orally Once a day at bedtime 1 capsule Apr, 30 day(s) Active Prozac 40 MG Orally Once a day 1 capsule in the morning 24h Sep, Active Adderall 5 mg Orally twice a day 1 tablet 12h Apr, 2 8 days Active RESULTS Name Result Date Reference Range URINE DRUG SCREEN (IN HOUSE) 2017-05-14 Lot # [id number] Exp date 08/2018 Control + COCAINE negative AMPH negative MTD negative THC negative OPIATE negative BENZO negative PCP negative BAR negative OXY negative MAMP negative TCA negative BUP negative MDMA negative PROCEDURES Procedure Date Ordered Result Body Site DRUG TEST PRSMV DIR OPT OBS May 14, 2017 INSTRUCTIONS MEDICATIONS ADMINISTERED No Known Medications MEDICAL (GENERAL) HISTORY Type Description Date Medical History depression Medical History PTSD Medical History obesity Medical History denies any hx of heart problem or seizur e 05/14/17 Medical History hx of anemia Hospitalization History childbirth only Hospitalization History Denies any past psych hospitalizatio n
--- OUTSIDE RECORDS SUMMARY | 2020-03-21 23:41 | XMS REPORT ---
Author Author Cari YIP [facility] Address [address] [place] [address] Care Team Providers Care [employer] Estate [employer] Licensee Name Role Phone THEODORA, BORIS Unavailable PROBLEMS Type Condition ICD9-CM Code GIA98-JH Code Onset Dates Condition S tatus SNOMED Code Problem PTSD (post-traumatic stress disorder) F43.10 Active 44493189 Problem Non morbid obesity due to excess calories E66.09 Active 485883514 Problem Attention deficit hyperactiv ity disorder (ADHD), predominantly inattentive type F90.0 Active 05580315 Problem Anxiety disorder, unspecified type F41.9 Active 716589296 Problem Binge eating R63.2 Active 1344329 05 Problem Anxiety F41.9 Active 09770973 Problem Binge eating disorder F50.81 Active 170540744 Problem Moderate episode of recurrent major depressive disorder F33.1 Active 586976525 ALLERGIES No Information ENCOUNTERS Encounter Location Date Diagnosis [facility] [address] [id number] [address] [place] [phone] Feb, [facility] [address] [id number] [address] [place] [phone] Feb, [facility] [address] [id number] [address] [place] [address] Feb, PTSD (post-traumatic stress disorder) F43.10 ; Moderate episode of recurrent major depressive disorder F33.1 ; Binge eating disorder F50.81 and Attention deficit hyperactivity disorder (ADHD), predominantly inattentive type F90.0 [facility] [address] [facility] [id number] [address] [place] [phone] Feb, PTSD (post-traumatic stress disorder) F43.10 [facility] [address] [id number] [address] [place] [address] January, PTSD (post-traumatic stress disorder) F43.10 ; Moderate episode of recurrent major depressive disorder F33.1 ; Binge eating disorder F50.81 and Attention deficit hyperactivity disorder (ADHD), predominantly inattentive type F90.0 [facility] [address] [facility] [id number] [address] [place] [address] January, PTSD (post-traumatic stress disorder) F43.10 [place] [address] [facility] [id number] [address] [place] [address] Dec, PTSD (post-traumatic stress disorder) F43.10 ; Moderate episode of recurrent major depressive disorder F33.1 ; Binge eating disorder F50.81 ; Attention deficit hyperactivity disorder (ADHD), predominantly inattentive type F90.0 and Anxiety disorder, unspecified type F41.9 [place] [address] [facility] [id number] [address] [place] [phone] Nov, PTSD (post-traumatic stress disorder) F43.10 [place] [address] [facility] [id number] [address] [place] [phone] Aug, [place] [address] [facility] [id number] [address] [place] [phone] Aug, PTSD (post-traumatic stress disorder) F43.10 ; Moderate episode of recurrent major depressive disorder F33.1 ; Binge eating disorder F50.81 ; Attention deficit hyperactivity disorder (ADHD), predominantly inattentive type F90.0 and Anxiety disorder, unspecified type F41.9 [place] [address] [facility] [id number] [address] [place] [address] Jul, PTSD (post-traumatic stress disorder) F43.10 ; Moderate episode of recurrent major depressive disorder F33.1 ; Binge eating disorder F50.81 ; Attention deficit hyperactivity disorder (ADHD), predominantly inattentive type F90.0 and Anxiety disorder, unspecified type F41.9 [place] [address] [facility] [id number] [address] [place] [address] Jun, PTSD (post-traumatic stress disorder) F43.10 ; Moderate episode of recurrent major depressive disorder F33.1 ; Binge eating disorder F50.81 ; Attention deficit hyperactivity disorder (ADHD), predominantly inattentive type F90.0 and Anxiety disorder, unspecified type F41.9 [place] [address] [facility] [id number] [address] [place] [phone] May, Attention deficit hyperactiv ity disorder (ADHD), predominantly inattentive type F90.0 [place] [address] [facility] [id number] [address] [place] [address] Apr, PTSD (post-traumatic stress disorder) F43.10 ; Moderate episode of recurrent major depressive disorder F33.1 ; Binge eating disorder F50.81 ; Attention deficit hyperactivity disorder (ADHD), predominantly inattentive type F90.0 and Anxiety disorder, unspecified type F41.9 [place] [address] [facility] [id number] [address] [place] [address] Apr, PTSD (post-traumatic stress disorder) F43.10 ; Moderate episode of recurrent major depressive disorder F33.1 and Binge eating disorder F50.81 [place] [address] [facility] [id number] [address] [place] [address] Mar, Moderate episode of recurren t major depressive disorder F33.1 [place] [address] [place] [address] [id number] [address] [place] [phone] January, Moderate episode of recurren t major depressive disorder F33.1 [place] [address] [place] [id number] [address] [place] [phone] Dec, Anxiety F41.9 ; Binge eating R63.2 and Non morbid obesity due to excess calories E66.09 [place] [address] [facility] [id number] [address] [place] [address] Sep, PTSD (post-traumatic stress disorder) F43.10 ; Non morbid obesity due to excess calories E66.09 and Weight gain R63.5 [facility] [address] [id number] [address] [place] [address] Sep, [facility] [address] [id number] [address] [place] [address], [place] [address] January, Fecal impaction of colon K56 .41 [facility] [address] [id number] [address] [place] [address], [place] [address] Apr, Dysthymia 300.4 [facility] [address] [id number] [address] [place] [address], [place] [address] Mar, [facility] [address] [id number] [address] [place] [phone] January, [facility] [address] [id number] [address] [place] [address], [place] [address] Dec, [facility] [address] [id number] [address] [place] [address] Dec, [facility] [address] [id number] [address] [place] [address], [place] [address] Oct, [facility] [address] [id number] [address] [place] [phone] Oct, [facility] [address] [id number] [address] [place] [address], [place] [address] Jul, [facility] [address] [id number] [address] [place] [address] Jul, [facility] [address] [id number] [address] [place] [phone] Apr, [facility] [address] [id number] [address] [place] [phone] Apr, [facility] [address] [id number] [address] [place] [address], [place] [address] Mar, [facility] [address] [id number] [address] [place] [phone] Mar, [facility] [address] [id number] [address] [place] [phone] Mar, [facility] [address] [id number] [address] [place] [address], [place] [address] Mar, [facility] [address] [id number] [address] [place] [address], [place] [address] Mar, [facility] [address] [id number] [address] [place] [address], [place] [address] Mar, [facility] [address] [id number] [address] [place] [address], [place] [address] Feb, [facility] [address] [id number] [address] [place] [address], [place] [address] Dec, [facility] [address] [id number] [address] [place] [address], [place] [address] Dec, [facility] [address] [id number] [address] [place] [address], [place] [address] Nov, [facility] [address] [id number] [address] [place] [address], [place] [address] Sep, [facility] [address] [id number] [address] [place] [address], [place] [address] Sep, [facility] [address] [id number] [address] [place] [address], [place] [address] Apr, [facility] [address] [id number] [address] [place] [address], [place] [address] Dec, [facility] [address] [id number] [address] [place] [address], [place] [address] Nov, [facility] [address] [id number] [address] [place] [address], [place] [address] Jul, [facility] [address] [id number] [address] [place] [address], [place] [address] Jul, [facility] [address] [id number] [address] [place] [address], [place] [address] January, [facility] [address] [id number] [address] [place] [address], [place] [address] January, [facility] [address] [facility] [id number] [address] [place] [phone] Dec, [facility] [address] [facility] [id number] [address] [place] [phone] Sep, IMMUNIZATIONS No Known Immunizations SOCIAL HISTORY Never Assessed REASON FOR VISIT Requests return call PLAN OF CARE VITAL SIGNS MEDICATIONS Medication Instructions Dosage Frequency Start Date End Date Duration S tatus Strattera 25 MG Orally Once a day 2 capsules 24h Sep, 30 day(s) Active RESULTS No Results PROCEDURES No Known [...]
--- OUTSIDE RECORDS SUMMARY | 2020-03-21 23:41 | XMS REPORT ---
Author Author Cari YIP [facility] Address [address] [place] [address] Care Team Providers Care [employer] Name Role Phone THEODORA, BORIS Unavailable PROBLEMS Type Condition ICD9-CM Code TSQ46-IA Code Onset Dates Condition S tatus SNOMED Code Problem PTSD (post-traumatic stress disorder) F43.10 Active 43928227 Problem Non morbid obesity due to excess calories E66.09 Active 144884522 Problem Attention deficit hyperactiv ity disorder (ADHD), predominantly inattentive type F90.0 Active 27272525 Problem Anxiety disorder, unspecified type F41.9 Active 665657328 Problem Binge eating R63.2 Active 8550179 05 Problem Anxiety F41.9 Active 55837145 Problem Binge eating disorder F50.81 Active 956973891 Problem Moderate episode of recurrent major depressive disorder F33.1 Active 590709412 ALLERGIES Substance Reaction Event Type Date Status Amoxicillin hives Drug Allergy Aug, Active ENCOUNTERS Encounter Location Date Diagnosis [facility] [address] [id number] [address] [place] [phone] Feb, [facility] [address] [facility] [id number] [address] [place] [address] Feb, [facility] [address] [id number] [address] [place] [address] Feb, PTSD (post-traumatic stress disorder) F43.10 ; Moderate episode of recurrent major depressive disorder F33.1 ; Binge eating disorder F50.81 and Attention deficit hyperactivity disorder (ADHD), predominantly inattentive type F90.0 [facility] [address] [id number] [address] [place] [address] Feb, PTSD (post-traumatic stress disorder) F43.10 [facility] [address] [id number] [address] [place] [address] January, PTSD (post-traumatic stress disorder) F43.10 ; Moderate episode of recurrent major depressive disorder F33.1 ; Binge eating disorder F50.81 and Attention deficit hyperactivity disorder (ADHD), predominantly inattentive type F90.0 [facility] [address] [facility] [id number] [address] [place] [address] January, PTSD (post-traumatic stress disorder) F43.10 [facility] [address] [facility] [id number] [address] [place] [address] Dec, PTSD (post-traumatic stress disorder) F43.10 ; Moderate episode of recurrent major depressive disorder F33.1 ; Binge eating disorder F50.81 ; Attention deficit hyperactivity disorder (ADHD), predominantly inattentive type F90.0 and Anxiety disorder, unspecified type F41.9 [facility] [address] [facility] [id number] [address] [place] [address] Nov, PTSD (post-traumatic stress disorder) F43.10 [facility] [address] [facility] [id number] [address] [place] [address] Aug, [place] [address] [facility] [id number] [address] [place] [address] Aug, PTSD (post-traumatic stress disorder) F43.10 ; Moderate episode of recurrent major depressive disorder F33.1 ; Binge eating disorder F50.81 ; Attention deficit hyperactivity disorder (ADHD), predominantly inattentive type F90.0 and Anxiety disorder, unspecified type F41.9 [facility] [address] [facility] [id number] [address] [place] [address] Jul, PTSD (post-traumatic stress disorder) F43.10 ; Moderate episode of recurrent major depressive disorder F33.1 ; Binge eating disorder F50.81 ; Attention deficit hyperactivity disorder (ADHD), predominantly inattentive type F90.0 and Anxiety disorder, unspecified type F41.9 [facility] [address] [facility] [id number] [address] [place] [phone] 13 Oct, 2017 PTSD (post-traumatic stress disorder) F43.10 ; Moderate episode of recurrent major depressive disorder F33.1 ; Binge eating disorder F50.81 ; Attention deficit hyperactivity disorder (ADHD), predominantly inattentive type F90.0 and Anxiety disorder, unspecified type F41.9 [place] [address] [facility] [id number] [address] [place] [address] May, Attention deficit hyperactiv ity disorder (ADHD), predominantly inattentive type F90.0 [place] [address] [facility] [id number] [address] [place] [address] Apr, PTSD (post-traumatic stress disorder) F43.10 ; Moderate episode of recurrent major depressive disorder F33.1 ; Binge eating disorder F50.81 ; Attention deficit hyperactivity disorder (ADHD), predominantly inattentive type F90.0 and Anxiety disorder, unspecified type F41.9 [place] [address] [facility] [id number] [address] [place] [address] Apr, PTSD (post-traumatic stress disorder) F43.10 ; Moderate episode of recurrent major depressive disorder F33.1 and Binge eating disorder F50.81 [place] [address] [facility] [id number] [address] [place] [address] Mar, Moderate episode of recurren t major depressive disorder F33.1 [place] [address] [facility] [id number] [address] [place] [address] January, Moderate episode of recurren t major depressive disorder F33.1 [place] [address] [place] [id number] [address] [place] [address] Dec, Anxiety F41.9 ; Binge eating R63.2 and Non morbid obesity due to excess calories E66.09 [place] [address] [facility] [id number] [address] [place] [address] Sep, PTSD (post-traumatic stress disorder) F43.10 ; Non morbid obesity due to excess calories E66.09 and Weight gain R63.5 [place] [address] [facility] [id number] [address] [place] [address] Sep, [facility] [address] [id number] [address] [place] [address], [place] [address] January, Fecal impaction of colon K56 .41 [facility] [address] [id number] [address] [place] [address], [place] [address] Apr, Dysthymia 300.4 [facility] [address] [id number] [address] [place] [address], [place] [address] Mar, [facility] [address] [id number] [address] [place] [address], [place] [address] January, [facility] [address] [id number] [address] [place] [address], [place] [address] Dec, [facility] [address] [id number] [address] [place] [address], [place] [address] Dec, [facility] [address] [id number] [address] [place] [address], [place] [address] Oct, [facility] [address] [id number] [address] [place] [address], [place] [address] Oct, [facility] [address] [id number] [address] [place] [address], [place] [address] Jul, [facility] [address] [id number] [address] [place] [address] Jul, [facility] [address] [id number] [address] [place] [address], [place] [address] Apr, [facility] [address] [id number] [address] [place] [address] Apr, [facility] [address] [id number] [address] [place] [address], [place] [address] Mar, [facility] [address] [id number] [address] [place] [address] Mar, [facility] [address] [id number] [address] [place] [phone] Mar, [facility] [address] [id number] [address] [place] [address], [place] [address] Mar, [facility] [address] [id number] [address] [place] [address], [place] [address] Mar, [facility] [address] [id number] [address] [place] [address], [place] [address] Mar, [facility] [address] [id number] [address] [place] [address], [place] [address] Feb, [facility] [address] [id number] [address] [place] [address], [place] [address] Dec, [facility] [address] [id number] [address] [place] [address], [place] [address] Dec, [facility] [address] [id number] [address] [place] [address], [place] [address] Nov, [facility] [address] [id number] [address] [place] [address], [place] [address] Sep, [facility] [address] [id number] [address] [place] [address], [place] [address] Sep, [facility] [address] [id number] [address] [place] [address], [place] [address] Apr, [facility] [address] [id number] [address] [place] [address], [place] [address] Dec, [facility] [address] [id number] [address] [place] [address], [place] [address] Nov, [facility] [address] [id number] [address] [place] [address], [place] [address] Jul, [facility] [address] [id number] [address] [place] [address], [place] [address] Jul, [facility] [address] [id number] [address] [place] [address], [place] [address] January, [facility] [address] [id number] [address] [place] [address] January, [facility] [address] [facility] [id number] [address] [place] [address] Dec, [facility] [address] [facility] [id number] [address] [place] [address] Sep, IMMUNIZATIONS No Known Immunizations SOCIAL HISTORY Never Assessed REASON FOR VISIT f/u--Sarah Mcmahon MA PLAN OF CARE Activity Details Follow Up 4 Weeks Reason: f/u VITAL SIGNS Height 64 in 2017-08-24 Weight 244.7 lbs 2017-08-24 Heart Rate 104 bpm 2017-08-24 Respiratory Rate 20 2017-08-24 BMI 42.00 kg/m2 2017-08-24 Blood pressure systolic 124 mmHg 2017-08-24 Blood pressure diastolic 82 mmHg 2017-08-24 MEDICATIONS Medication Instructions Dosage Frequency Start Date End Date Duration S tatus Depo-Provera 150 mg/mL inject 150 mg by intramuscular route every 3 months Jul, Active Celexa 20 mg Orally Once a day 1.5 tablets 24h 30 da y(s) Active Prazosin HCl 1 MG Orally Once a day at bedtime 1 capsule 30 day(s) Active Strattera 25 MG Orally Once a day 1 capsule 24h Aug, 90 days Active RESULTS No Results PROCEDURES No [...]
--- OUTSIDE RECORDS SUMMARY | 2020-03-21 23:41 | XMS REPORT ---
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 Name Role Phone THEODORA, BORIS Unavailable PROBLEMS Type Condition ICD9-CM Code [id number] Code Onset Dates Condition S tatus SNOMED Code Problem PTSD (post-traumatic stress disorder) F43.10 Active 18473040 Problem Non morbid obesity due to excess calories E66.09 Active 273476207 Problem Attention deficit hyperactiv ity disorder (ADHD), predominantly inattentive type F90.0 Active 72208942 Problem Anxiety disorder, unspecified type F41.9 Active 608035132 Problem Binge eating R63.2 Active 6970519 05 Problem Anxiety F41.9 Active 21226774 Problem Binge eating disorder F50.81 Active 851291583 Problem Moderate episode of recurrent major depressive disorder F33.1 Active 866436280 ALLERGIES Substance Reaction Event Type Date Status Amoxicillin hives Drug Allergy Dec, Active ENCOUNTERS Encounter Location Date Diagnosis [facility] [address] [facility] [id number] [address] [place] [id number] Feb, PTSD (post-traumatic stress disorder) F43.10 ; Moderate episode of recurrent major depressive disorder F33.1 ; Binge eating disorder F50.81 and Attention deficit hyperactivity disorder (ADHD), predominantly inattentive type F90.0 [facility] [address] [facility] [id number] [address] [place] [address] Feb, PTSD (post-traumatic stress disorder) F43.10 [facility] [address] [facility] [id number] [address] [place] [address] January, PTSD (post-traumatic stress disorder) F43.10 ; Moderate episode of recurrent major depressive disorder F33.1 ; Binge eating disorder F50.81 and Attention deficit hyperactivity disorder (ADHD), predominantly inattentive type F90.0 [place] [id number] [facility] [id number] [address] [place] [address] January, PTSD (post-traumatic stress disorder) F43.10 [place] [address] [place] [id number] [address] [place] [address] Dec, PTSD (post-traumatic stress disorder) F43.10 ; Moderate episode of recurrent major depressive disorder F33.1 ; Binge eating disorder F50.81 ; Attention deficit hyperactivity disorder (ADHD), predominantly inattentive type F90.0 and Anxiety disorder, unspecified type F41.9 [place] [address] [facility] [id number] [address] [place] [address] Nov, PTSD (post-traumatic stress disorder) F43.10 [place] [address] [place] [id number] [address] [place] [address] Aug, [place] [address] [place] [id number] [place] [address] Aug, PTSD (post-traumatic stress disorder) F43.10 ; Moderate episode of recurrent major depressive disorder F33.1 ; Binge eating disorder F50.81 ; Attention deficit hyperactivity disorder (ADHD), predominantly inattentive type F90.0 and Anxiety disorder, unspecified type F41.9 [place] [address] [place] [id number] [address] [place] [address] Jul, PTSD (post-traumatic stress disorder) F43.10 ; Moderate episode of recurrent major depressive disorder F33.1 ; Binge eating disorder F50.81 ; Attention deficit hyperactivity disorder (ADHD), predominantly inattentive type F90.0 and Anxiety disorder, unspecified type F41.9 [place] [address] [place] [id number] [address] [place] [address] Jun, PTSD (post-traumatic stress disorder) F43.10 ; Moderate episode of recurrent major depressive disorder F33.1 ; Binge eating disorder F50.81 ; Attention deficit hyperactivity disorder (ADHD), predominantly inattentive type F90.0 and Anxiety disorder, unspecified type F41.9 [place] [address] [place] [id number] [address] [place] [address] May, Attention deficit hyperactiv ity disorder (ADHD), predominantly inattentive type F90.0 [place] [address] [facility] [id number] [address] [place] [address] Apr, PTSD (post-traumatic stress disorder) F43.10 ; Moderate episode of recurrent major depressive disorder F33.1 ; Binge eating disorder F50.81 ; Attention deficit hyperactivity disorder (ADHD), predominantly inattentive type F90.0 and Anxiety disorder, unspecified type F41.9 [place] [address] [place] [id number] [address] [place] [address] Apr, PTSD (post-traumatic stress disorder) F43.10 ; Moderate episode of recurrent major depressive disorder F33.1 and Binge eating disorder F50.81 [place] [address] [place] [id number] [address] [place] [address] Mar, Moderate episode of recurren t major depressive disorder F33.1 [place] [address] [place] [id number] [address] [place] [address] January, Moderate episode of recurren t major depressive disorder F33.1 [place] [address] [place] [id number] [address] [place] [address] Dec, Anxiety F41.9 ; Binge eating R63.2 and Non morbid obesity due to excess calories E66.09 [place] [address] [place] [id number] [address] [place] [address] Sep, PTSD (post-traumatic stress disorder) F43.10 ; Non morbid obesity due to excess calories E66.09 and Weight gain R63.5 [place] [address] [place] [id number] [address] [place] [address] Sep, [facility] [address] [facility] [id number] [address] [place] [address] January, Fecal impaction of colon K56 .41 [place] [address] [place] [id number] [address] [place] [address] Apr, Dysthymia 300.4 [facility] [address] [id number] [address] [place] [address], [place] [address] Mar, [facility] [address] [id number] [address] [place] [address], [place] [address] January, [facility] [address] [id number] [address] [place] [address], [place] [address] Dec, [facility] [address] [id number] [address] [place] [address], [place] [address] Dec, [facility] [address] [id number] [address] [place] [address], [place] [address] Oct, [facility] [address] [id number] [address] [place] [address], [place] [address] Oct, [facility] [address] [id number] [address] [place] [address], [place] [address] Jul, [facility] [address] [id number] [address] [place] [address], [place] [address] Jul, [facility] [address] [id number] [address] [place] [address], [place] [address] Apr, [facility] [address] [id number] [address] [place] [address], [place] [address] Apr, [facility] [address] [id number] [address] [place] [address], [place] [address] Mar, [facility] [address] [id number] [address] [place] [address], [place] [address] Mar, [facility] [address] [id number] [address] [place] [address], [place] [address] Mar, [facility] [address] [id number] [address] [place] [address], [place] [address] Mar, [facility] [address] [id number] [address] [place] [address], [place] [address] Mar, [facility] [address] [id number] [address] [place] [address], [place] [address] Mar, [facility] [address] [id number] [address] [place] [address], [place] [address] Feb, [facility] [address] [id number] [address] [place] [address], [place] [address] Dec, [facility] [address] [id number] [address] [place] [address], [place] [address] Dec, [facility] [address] [id number] [address] [place] [address], [place] [address] Nov, [facility] [address] [id number] [address] [place] [address], [place] [address] Sep, [facility] [address] [id number] [address] [place] [address], [place] [address] Sep, [facility] [address] [id number] [address] [place] [address], [place] [address] Apr, [facility] [address] [id number] [address] [place] [address], [place] [address] Dec, [facility] [address] [id number] [address] [place] [address], [place] [address] Nov, [facility] [address] [id number] [address] [place] [address], [place] [address] Jul, [facility] [address] [id number] [address] [place] [address], [place] [address] Jul, [facility] [address] [id number] [address] [place] [address], [place] [address] January, [facility] [address] [id number] [address] [place] [address], [place] [address] January, [facility] [address] [id number] [address] [place] [address], [place] [address] Dec, [facility] [address] [id number] [address] [place] [address], [place] [address] Sep, IMMUNIZATIONS No Known Immunizations SOCIAL HISTORY Never Assessed REASON FOR VISIT f/u Florinda PLAN OF CARE Activity Details Follow Up 4 Weeks Reason: f/u VITAL SIGNS Height 64 in 2017-12-18 Weight 240.0 lbs 2017-12-18 Heart Rate 116 bpm 2017-12-18 Respiratory Rate 20 2017-12-18 BMI 41.19 kg/m2 2017-12-18 Blood pressure systolic 132 mmHg 2017-12-18 Blood pressure diastolic 88 mmHg 2017-12-18 MEDICATIONS Medication Instructions Dosage Frequency Start Date End Date Duration S tatus Concerta 18 mg Orally Once a day 1 tablet in the morning 24h Dec, 28 days Active Depo-Provera 150 mg/mL inject 150 mg by intramuscular route every 3 months Jul, Active Celexa 40 mg Orally Once a day 1 tablet 24h Dec, 30 day(s) Active RESULTS No Results PROCEDURES [...]
--- OUTSIDE RECORDS SUMMARY | 2020-03-21 23:41 | XMS REPORT | Continuity of Care Document ---
Author Organization Unknown Address Unknown Phone Unavailable Allergies Active Description Code Type Severity Reaction Onset Reported/Identified Relationship to Patient Clinical Status Yes No Known Drug Allergies [id number] Drug Allergy Unknown N/A 02/17/2010 Yes Amoxicillin Drug Allergy 09/16/2012 Yes Amoxicillin Drug Allergy N/A N/A 09/16/2012 Medications There is no data. Problems Date Dx Coded Attending Type Code Diagnosis Diagnosed By 12/15/2008 TY HALEY DO 995.3 Allergy Unspecified Not Elsewhere Classified 12/15/2008 995.3 Sherman rgy Unspecified Not Elsewhere Classified 12/15/2008 TY HALEY DO 995.3 Allergy Unspecified Not Elsewhere Classified 12/15/2008 TY HALEY DO 995.3 Allergy Unspecified Not Elsewhere Classified 12/15/2008 TY HALEY DO 995.3 Allergy Unspecified Not Elsewhere Classified 12/15/2008 RIKY APRN, DARI A 99 5.3 Allergy Unspecified Not Elsewhere Classified 12/15/2008 RIKY [employer] SALES ENGINEER, DARI A 99 5.3 Allergy Unspecified Not Elsewhere Classified 12/15/2008 TY HALEY DO K 995.3 Allergy Unspecified Not Elsewhere Classified 09/25/2009 TY HALEY DO V22.1 Pc Other Normal 09/25/2009 V22.1 Pc O ther Normal 09/25/2009 TY HALEY DO V22.1 Pc Other Normal 09/25/2009 TY HALEY DO V22.1 Pc Other Normal 09/25/2009 TY HALEY DO V22.1 Pc Other Normal 09/25/2009 RIKY [employer] SALES ENGINEER, DARI A V2 2.1 Pc Other Normal 09/25/2009 RIKY [employer] SALES ENGINEER, DARI A V2 2.1 Pc Other Normal 09/25/2009 TY HALEY DO K V22.1 Pc Other Normal 10/17/2009 TY HALEY DO 616.10 Vaginitis Vulvovaginitis Unspecified 10/17/2009 HALEY DO, TY K V69.2 High-risk Sexual Behavior 10/17/2009 HALEY DO, TY K V74.5 Std Screen 10/17/2009 616.10 Vag initis Vulvovaginitis Unspecified 10/17/2009 V69.2 High -risk Sexual Behavior 10/17/2009 V74.5 Std Screen 10/17/2009 HALEY DO, TY K 616.10 Vaginitis Vulvovaginitis Unspecified 10/17/2009 HALEY DO, TY K V69.2 High-risk Sexual Behavior 10/17/2009 HALEY DO, TY K V74.5 Std Screen 10/17/2009 HALEY DO, TY K 616.10 Vaginitis Vulvovaginitis Unspecified 10/17/2009 HALEY DO, TY K V69.2 High-risk Sexual Behavior 10/17/2009 HALEY DO, TY K V74.5 Std Screen 10/17/2009 HALEY DO, TY K 616.10 Vaginitis Vulvovaginitis Unspecified 10/17/2009 HALEY DO, TY K V69.2 High-risk Sexual Behavior 10/17/2009 HALEY DO, TY K V74.5 Std Screen 10/17/2009 RIKY [employer] SAL[employer] ENGINEER, DARI A 616.10 Vaginitis Vulvovaginitis Unspecified 10/17/2009 RIKY [employer] SALES ENGINEER, DARI A V6 9.2 High-risk Sexual Behavior 10/17/2009 RIKY [employer] SALES ENGINEER, DARI A V7 4.5 Std Screen 10/17/2009 RIKY [employer] SALES ENGINEER, DARI A 616.10 Vaginitis Vulvovaginitis Unspecified 10/17/2009 RIKY [employer] SALES ENGINEER, DARI A V6 9.2 High-risk Sexual Behavior 10/17/2009 RIKY [employer] SALES ENGINEER, DARI A V7 4.5 Std Screen 10/17/2009 HALEY DO, TY K 616.10 Vaginitis Vulvovaginitis Unspecified 10/17/2009 HALEY DO, TY K V69.2 High-risk Sexual Behavior 10/17/2009 HALEY DO, TY K V74.5 Std Screen 12/31/2009 HALEY DO TY K 530.81 Esophageal Reflux 12/31/2009 HALEY DO TY K V23.7 High-risk With Insufficient Care 12/31/2009 530.81 Eso phageal Reflux 12/31/2009 V23.7 High -risk With Insufficient Care 12/31/2009 HALEY LB COXA K 530.81 Esophageal Reflux 12/31/2009 HALEY DO, TY K V23.7 High-risk With Insufficient Care 12/31/2009 HALEY DO TY K 530.81 Esophageal Reflux 12/31/2009 LB HALEY DOA K V23.7 High-risk With Insufficient Care 12/31/2009 HALEY DO TY K 530.81 Esophageal Reflux 12/31/2009 HALEY DO, TY K V23.7 High-risk With Insufficient Care 12/31/2009 RIKY [employer] SAL[employer] ENGINEER, DARI A 530.81 Esophageal Reflux 12/31/2009 RIKY [employer] SALES ENGINEER, DARI A V2 3.7 High-risk With Insufficient Care 12/31/2009 RIKY [employer] SALES ENGINEER, DARI A 530.81 Esophageal Reflux 12/31/2009 RIKY [employer] SALES ENGINEER, DARI A V2 3.7 High-risk With Insufficient Care 12/31/2009 HALEY LB COXA K 530.81 Esophageal Reflux 12/31/2009 HALEY DO TY K V23.7 High-risk With Insufficient Care 01/29/2010 LB HALEY DOA K 462 Pharyngitis Acute 01/29/2010 462 Pharyn gitis Acute 01/29/2010 LB HALEY DOA K 462 Pharyngitis Acute 01/29/2010 TY HALEY DO K 462 Pharyngitis Acute 01/29/2010 TY HALEY DO K 462 Pharyngitis Acute 01/29/2010 RIKY [employer] SAL[employer] ENGINEER, DARI A 46 2 Pharyngitis Acute 01/29/2010 RIKY [employer] SAL[employer] ENGINEER, DARI A 46 2 Pharyngitis Acute 01/29/2010 TY HALEY DO K 462 Pharyngitis Acute 06/06/2010 LB HALEY DOA Ross V24.2 visit for: exam 06/06/2010 TY HALEY DO V25.40 visit for: contraceptive surveillance 06/06/2010 V24.2 visi t for: exam 06/06/2010 V25.40 vis it for: contraceptive surveillance 06/06/2010 TY HALEY DO V24.2 visit for: exam 06/06/2010 TY HALEY DO V25.40 visit for: contraceptive surveillance 06/06/2010 TY HALEY DO V24.2 visit for: exam 06/06/2010 TY HALEY DO V25.40 visit for: contraceptive surveillance 06/06/2010 TY HALEY DO V24.2 visit for: exam 06/06/2010 TY HALEY DO V25.40 visit for: contraceptive surveillance 06/06/2010 RIKY [employer] SAL[employer] ENGINEER, DARI A V2 4.2 visit for: exam 06/06/2010 RIKY [employer] SALES ENGINEER, DARI A V25.40 visit for: contraceptive surveillance 06/06/2010 RIKY [employer] SALES ENGINEER, DARI A V2 4.2 visit for: exam 06/06/2010 RIKY [employer] SALES ENGINEER, DARI A V25.40 visit for: contraceptive surveillance 06/06/2010 TY HALEY DO V24.2 visit for: exam 06/06/2010 TY HALEY DO V25.40 visit for: contraceptive surveillance 01/08/2012 TY HALEY DO 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 01/08/2012 310.2 POST CONCUSSION SYNDROME 01/08/2012 TY HALEY DO 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 01/08/2012 TY HALEY DO 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 01/08/2012 TY HALEY DO 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 01/08/2012 RIKY [employer] SAL[employer] ENGINEER, DARI A 31 0.2 POSTCONCUSSION SYNDROME 01/08/2012 RIKY [employer] SALES ENGINEER, DARI A 31 0.2 POSTCONCUSSION SYNDROME 01/08/2012 TY HALEY DO 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 05/03/2012 TY HALEY DO V25.49 CONTRACEPTION SURVEILLANCE (REPEAT RX) 05/03/2012 V25.49 CON TRACEPTION SURVEILLANCE (REPEAT RX) 05/03/2012 TY HALEY DO V25.49 CONTRACEPTION SURVEILLANCE (REPEAT RX) 05/03/2012 TY HALEY DO V25.49 CONTRACEPTION SURVEILLANCE (REPEAT RX) 05/03/2012 HALEY DO, TY K V25.49 CONTRACEPTION SURVEILLANCE (REPEAT RX) 05/03/2012 RIKY [employer] SAL[employer] ENGINEER, DARI A V25.49 CONTRACEPTION SURVEILLANCE (REPEAT RX) 05/03/2012 RIKY [employer] SALES ENGINEER, DARI A V25.49 CONTRACEPTION SURVEILLANCE (REPEAT RX) 05/03/2012 LB HALEY DOA K V25.49 CONTRACEPTION SURVEILLANCE (REPEAT RX) 09/16/2012 LB HALEY DOA K V25.9 CONTRACEPTION MANAGEMENT 09/16/2012 V25.9 CONT RACEPTION MANAGEMENT 09/16/2012 HALEY DO TY K V25.9 CONTRACEPTION MANAGEMENT 09/16/2012 HALEY DO TY K V25.9 CONTRACEPTION MANAGEMENT 09/16/2012 HALEY DO TY K V25.9 CONTRACEPTION MANAGEMENT 09/16/2012 RIKY [employer] SALES ENGINEER, DARI A V2 5.9 CONTRACEPTION MANAGEMENT 09/16/2012 RIKY [employer]IP[employer] SALES ENGINEER, DARI A V2 5.9 CONTRACEPTION MANAGEMENT 09/16/2012 HALEY LB COXA K V25.9 CONTRACEPTION MANAGEMENT 12/17/2012 TERA COX TY K 285.9 ANEMIA UNSPECIFIED 12/17/2012 TERA COX TY K V58.69 LONG-TERM (CURRENT) USE OF OTHER MEDICATIONS 12/17/2012 HALEY DO TY K 285.9 ANEMIA UNSPECIFIED 12/17/2012 TERA COX TY K V58.69 LONG-TERM (CURRENT) USE OF OTHER MEDICATIONS 12/17/2012 TERA COX TY K 285.9 ANEMIA UNSPECIFIED 12/17/2012 HALEY DO TY K V58.69 LONG-TERM (CURRENT) USE OF OTHER MEDICATIONS 12/17/2012 RIKY [employer] SALES ENGINEER, DARI A 28 5.9 ANEMIA UNSPECIFIED 12/17/2012 RIKY [employer] E[employer] SALES ENGINEER, DARI A V58.69 LONG-TERM (CURRENT) USE OF OTHER MEDICATIONS 12/17/2012 RIKY [employer]QU[employer] SALES ENGINEER, DARI A 28 5.9 ANEMIA UNSPECIFIED 12/17/2012 RIKY [employer] EQUIPMENT SALES ENGINEER, DARI A V58.69 LONG-TERM (CURRENT) USE OF OTHER MEDICATIONS 12/17/2012 HALEY DO TY K 285.9 ANEMIA UNSPECIFIED 12/17/2012 HALEY DO TY K V58.69 LONG-TERM (CURRENT) USE OF OTHER MEDICATIONS 03/16/2014 TY HALEY DO K 919.4 INSECT BITE NONVENOMOUS OF OTHER MULTIPLE AND UNSPECIFIED SITES WITHOUT INFECTION 03/16/2014 DARI LAN APRN A 91 9.4 INSECT BITE NONVENOMOUS OF OTHER MULTIPLE AND UNSPECIFIED SITES WITHOUT INFECTION 03/16/2014 JAXON LAN APRNIDI A 91 9.4 INSECT BITE NONVENOMOUS OF OTHER MULTIPLE AND UNSPECIFIED SITES WITHOUT INFECTION 03/16/2014 TY HALEY DO 919.4 INSECT BITE NONVENOMOUS OF OTHER MULTIPLE AND UNSPECIFIED SITES WITHOUT INFECTION 07/20/2014 DARI LAN APRN A V04.81 FLU SHOT 07/20/2014 DARI LAN APRN A V72.31 PHOTOGRAPHIC PROCESS SCREEN MAKER EXAM, ROUTINE 07/20/2014 DARI LAN APRN A V76.10 BREAST CANCER SCREENING 07/20/2014 TERA COXTY K V04.81 FLU SHOT 07/20/2014 TREA COXLBA K V72.31 PHOTOGRAPHIC PROCESS SCREEN MAKER EXAM, ROUTINE 07/20/2014 TERA COX TY K V76.10 BREAST CANCER SCREENING 01/03/2018 GABY NOLEN MD Ot M54.9 DORSALGIA, UNSPECIFIED 01/03/2018 GABY NOLEN MD Ot N39.0 URINARY TRACT INFECTION, SITE NOT SPECIF 01/05/2018 GABY NOLEN MD Ot M54.9 DORSALGIA, UNSPECIFIED 01/05/2018 GABY NOLEN MD Ot N39.0 URINARY TRACT INFECTION, SITE NOT SPECIF Procedures Code [place] [address] PAP SMEAR 07/24/2011 15772 THER APUTIC INJ SQ/IM 09/16/2012 J1055 DEPO -PROVERA INJ 150 MG 09/16/2012 16431 URIN E TEST (IN- HOUSE) 09/16/2012 41668 URIN E TEST (IN- HOUSE) 12/06/2012 J1050 DEPO PROVERA 12/06/2012 39334 THER APUTIC INJ SQ/IM 12/06/2012 68446 ROUT INE VENIPUNCTURE 12/17/2012 98309 CMP 12/17/2012 06643 CBC 12/17/2012 J1050 DEPO PROVERA 02/16/2013 98213 URIN E TEST (IN- HOUSE) 02/23/2013 95650 THER APUTIC INJ SQ/IM 02/23/2013 62540 PREG ARJUN TEST, URINE (IN- HOUSE) 04/27/2014 J1050 DEPO PROVERA 04/27/2014 39928 THER APUTIC INJ SQ/IM 04/27/2014 17442 PREG ARJUN TEST, URINE (IN- HOUSE) 07/20/2014 J1050 DEPO PROVERA 07/20/2014 42020 THER APUTIC INJ SQ/IM 07/20/2014 J1050 DEPO PROVERA 10/19/2014 85498 PREG ARJUN TEST, URINE (IN- HOUSE) 10/19/2014 65206 THER APUTIC INJ SQ/IM 10/19/2014 Results Test Result Range Complete urinalysis with reflex to cultu re - 01/03/18 11:02 Urine color determination YELLOW NRG Urine clarity determination VERY CLOUDY NRG Urine pH measurement by test strip 6 5-9 Specific gravity of urine by test strip 1.015 1.016-1.022 Urine protein assay by test strip, semi-quantitative 4+ NEGATIVE Urine glucose detection by automated test strip NE GATIVE NEGATIVE Erythrocytes detection in urine sediment by light micr oscopy 5+ NEGATIVE Urine ketones detection by automated test strip NE GATIVE NEGATIVE Urine nitrite detection by test strip POSITIVE NEGATIVE Urine total bilirubin detection by test strip 1+ NEGATIVE Urine urobilinogen measurement by automated test strip (mass/volume) 1 mg/dL NORMAL Urine leukocyte esterase detection by dipstick 3+ NEGATIVE Automated urine sediment erythrocyte cou nt by microscopy (number/high power field) [HPF] NRG Automated urine sediment leukocyte count by microscopy (number/high power field) TNTC NRG Bacteria detection in urine sediment by light microsco py FEW NRG Crystals detection in urine sediment by light microsco py NONE NRG Casts detection in urine sediment by light microscopy NONE NRG Mucus detection in urine sediment by light microscopy NEGATIVE NRG Complete urinalysis with reflex to culture YES NRG Urine beta human chorionic gonadotropin (hCG) measurement - 01/03/18 11:02 Urine beta human chorionic gonadotropin (hCG) measurem ent NEGATIVE NEGATIVE Bacterial urine culture - 01/03/18 11:02 Bacterial urine culture [id number] NRG COLONY COUNT >100,000/ML NRG FTX;REPORTABLE SENSITIVITY REPORTED 01/04 15:50 NRG FREE TEXT ENTRY 3 MIXED GRAM POSITIVE HARDIK 10-100 ,000/ML NR Bacterial susceptibility panel - 8 11:02 Gentamicin susceptibility test by minimum inhibitory c oncentration <= NRG Trimethoprim/sulfamethoxazole susceptibi lity test by minimum inhibitoryconcentration S NRG Ampicillin susceptibility test by minimum inhibitory c oncentration 4 NRG Tobramycin susceptibility test by minimum inhibitory c oncentration <= NRG Cefazolin susceptibility test by minimum inhibitory co ncentration <= NRG Ceftriaxone susceptibility test by minimum inhibitory concentration <= NRG Ampicillin/sulbactam susceptibility test by minimum inhibitory concentration <= NRG Piperacillin/tazobactam susceptibility t est by minimum inhibitory concentration S NRG Ciprofloxacin susceptibility test by minimum inhibitor y concentration <= NRG Meropenem susceptibility test by minimum inhibitory co ncentration <= NRG Nitrofurantoin susceptibility test by mi nimum inhibitory concentration <= NRG Aztreonam susceptibility test by minimum inhibitory co ncentration <= NRG Extended spectrum beta lactamase (ESBL) producing bacteria susceptibility test by minimum inhibitory concentration - NRG Complete blood count (CBC) with automate d white blood cell (WBC) differential - 01/03/18 12:00 Blood leukocytes automated count (number/volume) 9.2 10*3/uL 4.3-11.0 Blood erythrocytes automated count (number/volume) 4.54 10*6/uL 4.35-5.85 Venous blood hemoglobin measurement (mass/volume) 11.2 g/dL 11.5-16.0 Blood hematocrit (volume fraction) 36 % 35-52 Automated erythrocyte mean corpuscular volume 79 [ foz_us] 80-99 Automated erythrocyte mean corpuscular h emoglobin (mass per erythrocyte) 25 pg 25-34 Automated erythrocyte mean corpuscular h emoglobin concentration measurement (mass/volume) 31 g/dL 32-36 Automated erythrocyte distribution width ratio 14. 7 % 10.0- 14.5 Automated blood platelet count (count/volume) 424 10*3/uL 130-400 Automated blood platelet mean volume measurement 9.5 [foz_us] 7.4-10.4 Automated blood neutrophils/100 leukocytes 72 % 42-75 Automated blood lymphocytes/100 leukocytes 18 % 12-44 Blood monocytes/100 leukocytes 8 % 0-12 Automated blood eosinophils/100 leukocytes 3 % 0-10 Automated blood basophils/100 leukocytes 0 % 0-10 Blood neutrophils automated count (number/volume) 6.6 10*3 1.8-7.8 Blood lymphocytes automated count (number/volume) 1.6 10*3 1.0-4.0 Blood monocytes automated count (number/volume) 0. 7 10*3 0.0-1.0 Automated eosinophil count 0.2 10*3/uL 0 .0-0.3 Automated blood basophil count (count/volume) 0.0 10*3/uL 0.0-0.1 Comprehensive metabolic panel - 01/03/18 12:00 Serum or plasma sodium measurement (moles/volume) 139 mmol/L 135-145 Serum or plasma potassium measurement (moles/volume) 3.9 mmol/L 3.6-5.0 Serum or plasma chloride measurement (moles/volume) 110 mmol/L 98-107 Carbon dioxide 21 mmol/L 21-32 Serum or plasma anion gap determination (moles/volume) 8 mmol/L 5-14 Serum or plasma urea nitrogen measurement (mass/volume ) 10 mg/dL 7-18 Serum or plasma creatinine measurement (mass/volume) 0.82 mg/dL 0.60-1.30 Serum or plasma urea nitrogen/creatinine mass ratio 12 NRG Serum or plasma creatinine measurement w ith calculation of estimated glomerular filtration rate > NRG Serum or plasma glucose measurement (mass/volume) 99 mg/dL 70-105 Serum or plasma calcium measurement (mass/volume) 9.7 mg/dL 8.5-10.1 Serum or plasma total bilirubin measurement (mass/volu me) 0.3 mg/dL 0.1-1.0 Serum or plasma alkaline phosphatase stella surement (enzymatic activity/volume) 85 U/L 40-136 Serum or plasma aspartate aminotransfera se measurement (enzymatic activity/volume) 13 U/L 5-34 Serum or plasma alanine aminotransferase measurement (enzymatic activity/volume) 14 U/L 0-55 Serum or plasma protein measurement (mass/volume) 7.6 g/dL 6.4-8.2 Serum or plasma albumin measurement (mass/volume) 4.2 g/dL 3.2-4.5 Serum or plasma C reactive protein measu rement (mass/volume) - 01/03/18 12:00 Serum or plasma C reactive protein measurement (mass/v olume) 3.43 mg/dL 0.00-0.50 TSH - 04/29/18 10:46 TSH 0.80 mIU/L NRG PAIN MGMT,METHYLPHENIDATE METAB,QN,W/med MATCH,U - 06/21/19 10:32 COMMENT NRG Ritalinic Acid >86092 ng/mL <100 medMATCH Ritalinic Acid INCONSISTENT NR G VITAMIN D, 25-H - 02/15/20 11:49 VITAMIN D,25-OH,TOTAL,IA 24 ng/mL 30-10 0 Encounters ACCT No. Visit Date/Time Discharge Status Pt. Type Provider Facility Loc./Unit Complaint [id number] 10/19/2014 15:00:00 10/19/2014 23:59: 59 CLS Outpatient TY HALEY DO [id number] 07/20/2014 16:31:00 07/20/2014 23:59: 59 CLS Outpatient DARI LAN APRN [id number] 04/27/2014 14:19:00 04/27/2014 23:59: 59 CLS Outpatient DARI LAN APRN [id number] 03/16/2014 17:30:00 03/16/2014 23:59: 59 CLS Outpatient TY HALEY DO [id number] 02/23/2013 08:39:00 02/23/2013 23:59: 59 CLS Outpatient TY HALEY DO [id number] 12/17/2012 11:12:00 12/17/2012 23:59: 59 CLS Outpatient TY HALEY DO [id number] 12/06/2012 13:13:00 12/06/2012 23:59: 59 CLS Outpatient [id number] 09/16/2012 09:43:00 09/16/2012 23:59: 59 [place] [id number] 03/20/2020 13:00:00 ACT Outpatient YIN ROLDAN [facility] [id number] 02/15/2020 11:20:00 Document Registration [id number] 06/21/2019 10:20:00 Document Registration [id number] 04/29/2018 09:40:00 Document Registration [id number] 01/03/2018 10:49:00 018 14:22:00 DIS Emergency CALLUM MCCULLOUGH, GABY [facility] UTI [id number] 03/21/2020 23:35:[address] Emergency VIJAY MCCULLOUGH, ISAAC Nath [facility] SOB,FEVER
--- OUTSIDE RECORDS SUMMARY | 2020-03-21 23:41 | XMS REPORT ---
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 Name Role Phone THEODORA, BORIS Unavailable PROBLEMS Type Condition ICD9-CM Code AEW39-[id number] Code Onset Dates Condition S tatus SNOMED Code Problem PTSD (post-traumatic stress disorder) F43.10 Active 12245503 Problem Non morbid obesity due to excess calories E66.09 Active 024675587 Problem Attention deficit hyperactiv ity disorder (ADHD), predominantly inattentive type F90.0 Active 78217192 Problem Anxiety disorder, unspecified type F41.9 Active 493648514 Problem Binge eating R63.2 Active 7656124 05 Problem Anxiety F41.9 Active 78154991 Problem Binge eating disorder F50.81 Active 881553977 Problem Moderate episode of recurrent major depressive disorder F33.1 Active [id number] ALLERGIES No Information ENCOUNTERS Encounter Location Date Diagnosis [place] [id number] [place] [phone] Feb, PTSD (post-traumatic stress disorder) F43.10 ; Moderate episode of recurrent major depressive disorder F33.1 ; Binge eating disorder F50.81 and Attention deficit hyperactivity disorder (ADHD), predominantly inattentive type F90.0 [facility], [place] [address] [place] [id number] [place] [phone] Feb, PTSD (post-traumatic stress disorder) F43.10 [facility], [place] [address] [place] [place] [id number] [place] [phone] January, PTSD (post-traumatic stress disorder) F43.10 ; Moderate episode of recurrent major depressive disorder F33.1 ; Binge eating disorder F50.81 and Attention deficit hyperactivity disorder (ADHD), predominantly inattentive type F90.0 [facility] [place] [address] [place] [place] [id number] [place] [phone] January, PTSD (post-traumatic stress disorder) F43.10 [place] [address] [place] [id number] [place] [phone] Dec, PTSD (post-traumatic stress disorder) F43.10 ; Moderate episode of recurrent major depressive disorder F33.1 ; Binge eating disorder F50.81 ; Attention deficit hyperactivity disorder (ADHD), predominantly inattentive type F90.0 and Anxiety disorder, unspecified type F41.9 [place] [address] [place] [id number] [place] [phone] Nov, PTSD (post-traumatic stress disorder) F43.10 [place] [address] [place] [id number] [place] [phone] Aug, [place] [address] [place] [id number] [place] [phone] Aug, PTSD (post-traumatic stress disorder) F43.10 ; Moderate episode of recurrent major depressive disorder F33.1 ; Binge eating disorder F50.81 ; Attention deficit hyperactivity disorder (ADHD), predominantly inattentive type F90.0 and Anxiety disorder, unspecified type F41.9 [place] [address] [place] [id number] [place] [phone] Jul, PTSD (post-traumatic stress disorder) F43.10 ; Moderate episode of recurrent major depressive disorder F33.1 ; Binge eating disorder F50.81 ; Attention deficit hyperactivity disorder (ADHD), predominantly inattentive type F90.0 and Anxiety disorder, unspecified type F41.9 [place] [address] [place] [id number] [place] [phone] Jun, PTSD (post-traumatic stress disorder) F43.10 ; Moderate episode of recurrent major depressive disorder F33.1 ; Binge eating disorder F50.81 ; Attention deficit hyperactivity disorder (ADHD), predominantly inattentive type F90.0 and Anxiety disorder, unspecified type F41.9 [place] [address] [place] [id number] [place] [phone] May, Attention deficit hyperactiv ity disorder (ADHD), predominantly inattentive type F90.0 [place] [address] [phone] Apr, PTSD (post-traumatic stress disorder) F43.10 ; Moderate episode of recurrent major depressive disorder F33.1 ; Binge eating disorder F50.81 ; Attention deficit hyperactivity disorder (ADHD), predominantly inattentive type F90.0 and Anxiety disorder, unspecified type F41.9 [place] [address] [place] [id number] [place] [phone] Apr, PTSD (post-traumatic stress disorder) F43.10 ; Moderate episode of recurrent major depressive disorder F33.1 and Binge eating disorder F50.81 [place] [address] [phone] Mar, Moderate episode of recurren t major depressive disorder F33.1 [place] [address] [phone] January, Moderate episode of recurren t major depressive disorder F33.1 [place] [address] [phone] Dec, Anxiety F41.9 ; Binge eating R63.2 and Non morbid obesity due to excess calories E66.09 [place] [address] [place] [id number] [place] [phone] Sep, PTSD (post-traumatic stress disorder) F43.10 ; Non morbid obesity due to excess calories E66.09 and Weight gain R63.5 [place] [address] [place] [phone] Sep, [facility] [address] [place] [place] [id number] [place] [phone] January, Fecal impaction of colon K56 .41 [place] [address] [place] [id number] [place] [phone] Apr, Dysthymia 300.4 [facility] [address] [id number] [facility] [place] [address] Mar, [facility] [address] [id number] [address] [place] [address], [place] [address] January, [facility] [address] [id number] [address] [place] [address], [place] [address] Dec, [facility] [address] [id number] [address] [place] [address], [place] [phone] Dec, [facility] [address] [id number] [address] [place] [address], [place] [address] Oct, [facility] [address] [id number] [address] [place] [address], [place] [address] Oct, [facility] [address] [id number] [address] [place] [address], [place] [address] Jul, [facility] [address] [id number] [address] [place] [address], [place] [address] Jul, [facility] [address] [id number] [address] [place] [address], [place] [address] Apr, [facility] [address] [id number] [address] [place] [address], [place] [address] Apr, [facility] [address] [id number] [address] [place] [address], [place] [address] Mar, [facility] [address] [id number] [address] [place] [address], [place] [address] Mar, [facility] [address] [id number] [address] [place] [address], [place] [address] Mar, [facility] [address] [id number] [address] [place] [address], [place] [address] Mar, [facility] [address] [id number] [address] [place] [address], [place] [address] Mar, [facility] [address] [id number] [address] [place] [address], [place] [address] Mar, [facility] [address] [id number] [address] [place] [address], [place] [address] Feb, [facility] [address] [id number] [address] [place] [address], [place] [address] Dec, [facility] [address] [id number] [address] [place] [address], [place] [address] Dec, [facility] [address] [id number] [address] [place] [address], [place] [address] Nov, [facility] [address] [id number] [address] [place] [address], [place] [address] Sep, [facility] [address] [id number] [address] [place] [address], [place] [address] Sep, [facility] [address] [id number] [address] [place] [address], [place] [address] Apr, [facility] [address] [id number] [address] [place] [address], [place] [address] Dec, [facility] [address] [id number] [address] [place] [address], [place] [address] Nov, [facility] [address] [id number] [address] [place] [address], [place] [address] Jul, [facility] [address] [id number] [address] [place] [address], [place] [address] Jul, [facility] [address] [id number] [address] [place] [address], [place] [address] January, [facility] [address] [id number] [address] [place] [address], [place] [address] January, [facility] [place] [address] [id number] [address] [place] [address], [place] [address] Dec, [facility] [address] [id number] [address] [place] [address], [place] [address] Sep, IMMUNIZATIONS No Known Immunizations SOCIAL HISTORY Never Assessed REASON FOR VISIT Medication refill request PLAN OF CARE VITAL SIGNS MEDICATIONS Medication Instructions Dosage Frequency Start Date End Date Duration S tat Celexa 20 mg Orally Once a day 1.5 tablets 24h 30 da y(s) Active RESULTS No Results PROCEDURES No Known [...]
[2020-03-22] MEDS ORDERED: NS IV 500 ML 500 ML ONE (00:03)
[2020-03-22] MEDS ORDERED: NS IV 1000 ML 1,000 ML IV SCH (00:14)
[2020-03-22] MEDS ORDERED: NS IV 1000 ML 1,000 ML ONE (00:16)
[2020-03-22 00:18] LABS: ABG BASE EXCESS -2.6 MMOL/L (-2.5-2.5); ABG OXYGEN SATURATION 98 % (94-100); ABG PCO2 34 MMHG (35-45); ABG PH 7.42 (7.37-7.43); ABG PO2 103 MMHG (79-93); ABG TCO2 22.1 MMOL/L (21.0-31.0)
--- NOTE | 2020-03-22 00:19 | ED Respiratory ---
General Stated Complaint: SOB,FEVER Source: patient Exam Limitations: no limitations History of Present Illness Date Seen by Provider: Mar 22, 2020 Time Seen by Provider: 00:00 Initial Comments Patient presents ER by private conveyance from home with chief complaint that for the past 3 or 4 days she's been having some body aches chills fever Tmax of 101 and shortness of breath. Today it was getting worse. Yesterday she went to her primary care provider at [facility] and they swabbed her for COVID-19. She has not heard the results yet. She was told to come the ER if her symptoms got worse and she says now she feels very short of breath like she ran a marathon even while sitting still. She's been using Mucinex, Tylenol and ibupro fen. Her last dose of Tylenol was couple hours ago. She does not have any nausea vomiting. She does have some dysuria and says she feels that she's had a urinary tract infection for the past week. She does not get urine tested at [facility]. She's not on antibiotics. Allergies and Home Medications Allergies Coded Allergies: No Known Drug Allergies (Unverified , 02/17/10) Home Medications Cephalexin 500 Mg Tablet, 500 MG PO BID Prescribed by: GABY NOLEN on 01/03/18 1352 Phenazopyridine HCl 100 Mg Tablet, 100 MG PO TID PRN for PAIN-MILD TO MODERATE Prescribed by: GABY NOLEN on 01/03/18 1352 [Depo Provera] , Q 3 months IM, (Reported) Patient Home Medication List Home Medication List Reviewed: Yes Review of Systems Review of Systems Constitutional: No chills, No diaphoresis EENTM: No ear discharge, No ear pain Respiratory: cough (occasional, dry), dyspnea on exertion; No phlegm; short of breath; No wheezing Cardiovascular: No chest pain, No palpitations Gastrointestinal: No abdominal pain, No nausea Genitourinary: No discharge; dysuria : No Musculoskeletal: No back pain, No joint pain Psychiatric/Neurological: Anxiety; Denies Depressed All Other Systems Reviewed Negative Unless Noted: Yes Past Hohbqmg-Uzitns-Winnrt Hx Patient Social History Alcohol Use: Denies Use Recreational Drug Use: No Smoking Status: Never a Smoker Recent Foreign Travel: No Contact w/Someone Who Travel: No Recent Hopitalizations: No Seasonal Allergies Seasonal Allergies: No Past Medical History Surgeries: No Respiratory: No Cardiac: No Neurological: No Reproductive Disorders: No Genitourinary: Yes UTI-Chronic Gastrointestinal: No Musculoskeletal: No Endocrine: No HEENT: No Cancer: No Psychosocial: No Integumentary: No Blood Disorders: No Family Medical History No Pertinent Family Hx Physical Exam Vital Signs - First Documented 03/22/20 00:05 Temp 37.6 Pulse 91 Resp 20 B/P (MAP) 145/100 (115) Pulse Ox 94 O2 Delivery Room Air Capillary Refill : Height: 5'3.00" Weight: 235lbs. oz. 106.855832km; BMI Method:Stated General Appearance: WD/WN, moderate distress Eyes: Bilateral Eye Normal Inspection, Bilateral Eye PERRL, Bilateral Eye EOMI HEENT: PERRL/EOMI, normal ENT inspection, TMs normal, pharynx normal Neck: full range of motion, supple, normal inspection Respiratory: lungs clear, normal breath sounds, no respiratory distress, no accessory muscle use Cardiovascular: normal peripheral pulses, regular rate, rhythm Gastrointestinal: normal bowel sounds, non tender, soft Extremities: normal range of motion, normal capillary refill Neurologic/Psychiatric: alert, normal mood/affect, oriented x 3 Skin: normal color, warm/dry Focused Exam Lactate Level 03/22/20 00:43: Lactic Acid Level 1.26 Lactic Acid Level Laboratory Tests Test 03/22/20 00:43 Lactic Acid Level 1.26 MMOL/L (0.50-2.00) Progress/Results/Core Measures Suspected Sepsis SIRS Temperature: Pulse: Respiratory Rate: Laboratory Tests 03/22/20 00:08: White Blood Count 7.8 Blood Pressure / Mean: 03/22/20 00:43: Lactic Acid Level 1.26 Laboratory Tests 03/22/20 00:08: Creatinine 1.12, INR Comment 0.9, Platelet Count 411H, Total Bilirubin 0.2 Results/Orders Lab Results Laboratory Tests Test 03/22/20 00:08 03/22/20 00:12 03/22/20 00:43 03/22/20 01:04 Range/Units White Blood Count 7.8 4.3-11.0 10^3/uL Red Blood Count 4.60 4.35-5.85 10^6/uL Hemoglobin 11.8 11.5-16.0 G/DL Hematocrit 37 35-52 % Mean Corpuscular Volume 80 80-99 FL Mean Corpuscular Hemoglobin 26 25-34 PG Mean Corpuscular Hemoglobin Concent 32 32-36 G/DL Red Cell Distribution Width 14.9 H 10.0-14.5 % Platelet Count 411 H 130-400 10^3/uL Mean Platelet Volume 9.9 7.4-10.4 FL Neutrophils (%) (Auto) 48 42-75 % Lymphocytes (%) (Auto) 41 12-44 % Monocytes (%) (Auto) 8 0-12 % Eosinophils (%) (Auto) 2 0-10 % Basophils (%) (Auto) 1 0-10 % Neutrophils # (Auto) 3.7 1.8-7.8 X 10^3 Lymphocytes # (Auto) 3.2 1.0-4.0 X 10^3 Monocytes # (Auto) 0.7 0.0-1.0 X 10^3 Eosinophils # (Auto) 0.2 0.0-0.3 10^3/uL Basophils # (Auto) 0.1 0.0-0.1 10^3/uL Prothrombin Time 12.9 12.2-14.7 SEC INR Comment 0.9 0.8-1.4 Activated Partial Thromboplast Time 21 L 24-35 SEC Sodium Level 140 135-145 MMOL/L Potassium Level 4.5 3.6-5.0 MMOL/L Chloride Level 109 H 98-107 MMOL/L Carbon Dioxide Level 20 L 21-32 MMOL/L Anion Gap 11 5-14 MMOL/L Blood Urea Nitrogen 15 7-18 MG/DL Creatinine 1.12 0.60-1.30 MG/DL Estimat Glomerular Filtration Rate 57 BUN/Creatinine Ratio 13 Glucose Level 80 70-105 MG/DL Calcium Level 9.4 8.5-10.1 MG/DL Corrected Calcium 9.4 8.5-10.1 MG/DL Total Bilirubin 0.2 0.1-1.0 MG/DL Aspartate Amino Transf (AST/SGOT) 30 5-34 U/L Alanine Aminotransferase (ALT/SGPT) 16 0-55 U/L Alkaline Phosphatase 107 40-136 U/L Total Protein 8.4 H 6.4-8.2 GM/DL Albumin 4.0 3.2-4.5 GM/DL Serum Test, Qualitative NEGATIVE NEGATIVE Blood Gas Puncture Site RT RADIAL Blood Gas Patient Temperature 99.6 Arterial Blood pH 7.42 7.37-7.43 Arterial Blood Partial Pressure CO2 34 L 35-45 MMHG Arterial Blood Partial Pressure O2 103 H 79-93 MMHG Arterial Blood HCO3 21 L 23-27 MMOL/L Arterial Blood Total CO2 22.1 21.0-31.0 MMOL/L Arterial Blood Oxygen Saturation 98 94-100 % Arterial Blood Base Excess -2.6 L -2.5-2.5 MMOL/L Ascencion Test YES-POS Blood Gas Ventilator Setting NO Blood Gas Inspired Oxygen ROOM AIR Lactic Acid Level 1.26 0.50-2.00 MMOL/L Urine Color YELLOW Urine Clarity CLEAR Urine pH 6.0 5-9 Urine Specific [place] 1.020 1.016-1.022 Urine Protein NEGATIVE NEGATIVE Urine Glucose (UA) NEGATIVE NEGATIVE Urine Ketones NEGATIVE NEGATIVE Urine Nitrite NEGATIVE NEGATIVE Urine Bilirubin NEGATIVE NEGATIVE Urine Urobilinogen 1.0 < = 1.0 MG/DL Urine Leukocyte Esterase TRACE H NEGATIVE Urine RBC (Auto) NEGATIVE NEGATIVE Urine RBC RARE /HPF Urine WBC 0-2 /HPF Urine Squamous Epithelial Cells 10-25 H /HPF Urine Crystals NONE /LPF Urine Bacteria TRACE /HPF Urine Casts NONE /LPF Urine Mucus SMALL H /LPF Urine Culture Indicated NO My Orders Orders - ISAAC LINARES Iv 500 Ml (Sodium Chloride 0.9%) (03/22/20 00:03) Arterial Blood Gas (03/22/20 00:12) Cbc With Automated Diff (03/22/20 00:14) Comprehensive Metabolic Panel (03/22/20 00:14) Blood Culture (03/22/20 00:14) Urinalysis (03/22/20 00:14) Urine Culture (03/22/20 00:14) Protime With Inr (03/22/20 00:14) Partial Thromboplastin Time (03/22/20 00:14) Chest 1 View, Ap/Pa Only (03/22/20 00:14) Ed Iv/Invasive Line Start (03/22/20 00:14) Ed Iv/Invasive Line Start (03/22/20 00:14) Vital Signs Adult Sepsis Patie Q15M (03/22/20 00:14) O2 (03/22/20 00:14) Remove Rings In Anticipation O (03/22/20 00:14) Lactic Acid Analyzer (03/22/20 00:14) Ns Iv 1000 Ml (Sodium Chloride 0.9%) (03/22/20 00:14) Ns Iv 1000 Ml (Sodium Chloride 0.9%) (03/22/20 00:16) Hcg,Qualitative Serum (03/22/20 01:10) Medications Given in ED Current Medications Medications Dose Ordered Sig/Jj Route Start Time Stop Time Status Last Admin Dose Admin Sodium Chloride 500 ml @ ud STK-MED ONCE .ROUTE 03/22/20 00:03 03/22/20 00:05 DC 03/22/20 00:56 500 MLS/HR Vital Signs/I&O 03/22/20 00:05 Temp 37.6 Pulse 91 Resp 20 B/P (MAP) 145/100 (115) Pulse Ox 94 O2 Delivery Room Air Capillary Refill : Progress Note #1: Time: 00:21 Progress Note Patient's having fevers at home as well as tachycardia 105 and complaint of shortness of air. No known sick contacts. 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 Dehydration, her UTI are also relative on the differential list. Plan check some labs give her one half liters of fluid which would be 20 mL/kg based on an adjusted ideal body weight of 163 pounds. Hold off any antibiotics until we see her lab results. Chest x-ray. She can follow-up with her primary care office for the COVID-19 swab results. She did ask about influenza but this is not the appropriate season and dubious that she would have influenza. Lung sounds are clear and her oxygen sats are 100% on room air. ABGs just to confirm she does not have any respiratory distress. This will help guide us whether or not her symptoms are because of dehydration, UTI, anxiety or other. Progress Note #2: Time: 01:27 Progress Note Patient has aseptic vital signs at this time. Heart rate in the 80s. Afebrile. No evidence of respiratory distress on lab, examination or x-ray. Suspected based on her ABG she was having some anxiety and blowing off her CO2. Urinalysis unremarkable. Plan to let her go home and follow-up with primary care. Diagnostic Imaging Diagonstic Imaging: Xray Plain Films/CT/US/NM/MRI: chest (1 view) Comments No acute cardiopulmonary processes noted on one view chest x-ray Reviewed: Reviewed by Me Departure Impression Primary Impression: Viral syndrome Additional Impression: Anxiety about health Disposition: HOME, SELF-CARE Condition: Stable Departure-Patient Inst. Decision time for Depature: 01:25 Referrals: YIN ROLDAN APRN (PCP/Family) Primary Care Physician Patient Instructions: Viral Syndrome (DC) Add. Discharge Instructions: You don't appear to have a UTI. You seemed to be having a viral syndrome and COVID 19 is a possibility. Your primary care doctor will notify you of the results of your tests. You may call them follow-up when they said it was appropriate. Plan to quarantine per your primary care physician's recommendations. Wash your hands and use hand industrial illuminating engineer's. You may return to the ER. Having difficulty breathing chest pain or other worrisome symptoms. Tonight you should go home and get some sleep. ISAAC LINARES Mar 22, 2020 00:19
[2020-03-22 00:23] LABS: ALLENS TEST YES-POS
[2020-03-22 00:24] LABS: INSPIRED O2 ROOM AIR; PATIENT TEMP 99.6; VENTILATOR NO
[2020-03-22 00:25] LABS: BASOPHILS # (AUTO) 0.1 10^3/uL (0.0-0.1); BASOPHILS % (AUTO) 1 % (0-10); EOSINOPHILS # (AUTO) 0.2 10^3/uL (0.0-0.3); EOSINOPHILS % (AUTO) 2 % (0-10); HEMATOCRIT 37 % (35-52); HEMOGLOBIN 11.8 G/DL (11.5-16.0); LYMPHOCYTES # (AUTO) 3.2 X 10^3 (1.0-4.0); LYMPHOCYTES % (AUTO) 41 % (12-44); MEAN CORPUSCULAR HEMOGLOBIN 26 PG (25-34); MEAN CORPUSCULAR HGB CONC 32 G/DL (32-36); MEAN CORPUSCULAR VOLUME 80 FL (80-99); MEAN PLATELET VOLUME 9.9 FL (7.4-10.4); MONOCYTES # (AUTO) 0.7 X 10^3 (0.0-1.0); MONOCYTES % (AUTO) 8 % (0-12); NEUTROPHILS # (AUTO) 3.7 X 10^3 (1.8-7.8); NEUTROPHILS % (AUTO) 48 % (42-75); PLATELET COUNT 411 10^3/uL (130-400); RED CELL DISTRIBUTION WIDTH 14.9 % (10.0-14.5); WHITE BLOOD COUNT 7.8 10^3/uL (4.3-11.0)
[2020-03-22 00:37] LABS: POTASSIUM 4.5 MMOL/L (3.6-5.0)
[2020-03-22 00:39] LABS: CALCIUM 9.4 MG/DL (8.5-10.1)
[2020-03-22 00:40] LABS: TOTAL PROTEIN 8.4 GM/DL (6.4-8.2)
[2020-03-22 00:42] LABS: BILIRUBIN,TOTAL 0.2 MG/DL (0.1-1.0)
[2020-03-22 00:44] LABS: CREATININE SERUM 1.12 MG/DL (0.60-1.30)
[2020-03-22 00:46] LABS: INR 0.9 (0.8-1.4); PROTHROMBIN TIME PATIENT 12.9 SEC (12.2-14.7)
[2020-03-22 01:17] LABS: BILIRUBIN,URINE NEGATIVE (NEGATIVE); CLARITY,URINE CLEAR; COLOR,URINE YELLOW; GLUCOSE, URINE (UA) NEGATIVE (NEGATIVE); KETONES,URINE NEGATIVE (NEGATIVE); LEUKOCYTE ESTERASE ,URINE TRACE (NEGATIVE); NITRITE,URINE NEGATIVE (NEGATIVE); PROTEIN,URINE NEGATIVE (NEGATIVE)
[2020-03-22 01:24] LABS: BACTERIA,URINE TRACE /HPF; RBC,URINE RARE /HPF; WBC,URINE 0-2 /HPF
[2020-03-22 01:39] VITALS: BP 125/90
--- NOTE | 2020-03-22 06:15 | Diagnostic Imaging Report ---
EXAMINATION: Chest 1 view HISTORY: Fever. Cough and congestion. COMPARISON: None available. FINDINGS: The lung volumes are normal. No focal consolidation is seen. No large pleural effusion or pneumothorax is seen. The cardiomediastinal silhouette is normal in size and contour. No acute osseous abnormality is seen. IMPRESSION: 1. No acute pleuroparenchymal process. Dictated by: Dictated on workstation # [id number]
== END 2020-03-22 01:37 | disposition home or self-care (01) ==
LOC: EDUNIT# 23:31 → ER 23:35
DX: B34.9 Viral infection, unspecified (principal); F41.9 Anxiety disorder, unspecified; N39.0 Urinary tract infection, site not specified; Z20.828 Contact with and (suspected) exposure to other viral communicable diseases
CPT/HCPCS: 36415; 71045; 80053; 81000; 82805; 83605; 84703; 85025; 85610; 85730; 87040; 87088

== ENCOUNTER 2021-05-06 17:07 | Emergency (ER) | payer SELFPAY ==
[~2021-05-06] VITALS: Ht 157.4 cm; Wt 100.0 kg
--- NOTE | 2021-05-06 17:30 | ED Chest Pain ---
General Stated Complaint: CP Source: patient Exam Limitations: no limitations (SY ORTEGA MD) History of Present Illness Date Seen by Provider: May 06, 2021 Time Seen by Provider: 17:25 Initial Comments Patient is a 30-year-old female who presents to the emergency department today with a chief complaint of midsternal and left-sided chest pain onset over the course of the last several days. Patient describes it as a sharp and sometimes squeezing pain that does not radiate. She states she feels a little short of breath with it and a little nauseous with it when it happens. She states that Max it will last up to 2 minutes at a time. She is having it multiple times a day. It is not precipitated by exertion. She has never had anything like this before. She does have a history of anxiety and panic disorder. She thought initially that it was related to that but since it is recurred so many times she became concerned about coronary artery disease. She denies any recent fevers, chills, cough or congestion. She is Covid vaccinated and had Covid about 7 months ago. No history of blood clots, but she states that they are in her grandparents. No recent prolonged immobility. She is on Depo, she does not smoke. All other review of systems reviewed and negative except as stated. Timing/Duration: 1 week Severity/Quality: severe, pressure, sharp Location: substernal Radiation: no radiation Prior CP/Workup: no prior chest pain, no prior cardiac workup ASA po FUEL CELL BUILDER: No NTG SL FUEL CELL BUILDER: No Associated Symptoms: nausea/vomiting, shortness of breath (SY ORTEGA MD) Allergies and Home Medications Allergies Coded Allergies: No Known Drug Allergies (Unverified , 02/17/10) Home Medications Cephalexin 500 Mg Tablet, 500 MG PO BID Prescribed by: GABY NOLEN on 01/03/18 1352 Phenazopyridine HCl 100 Mg Tablet, 100 MG PO TID PRN for PAIN-MILD TO MODERATE Prescribed by: GABY NOLEN on 01/03/18 1352 [Depo Provera] , Q 3 months IM, (Reported) Patient Home Medication List Home Medication List Reviewed: Yes (SY ORTEGA MD) Review of Systems Review of Systems Constitutional: see HPI EENTM: No Symptoms Reported Cardiovascular: Chest Pain Gastrointestinal: Nausea Genitourinary: No Symptoms Reported Musculoskeletal: no symptoms reported Skin: no symptoms reported Psychiatric/Neurological: Anxiety (SY ORTEGA MD) All Other Systems Reviewed Negative Unless Noted: Yes (SY ORTEGA MD) Past Zzwnvrf-Vzrnkc-Dzvomb Hx Seasonal Allergies Seasonal Allergies: No (SY ORTEGA MD) Past Medical History Surgeries: No Respiratory: No Cardiac: No Neurological: No Reproductive Disorders: No Genitourinary: Yes UTI-Chronic Gastrointestinal: No Musculoskeletal: No Endocrine: No HEENT: No Cancer: No Psychosocial: No Integumentary: No Blood Disorders: No (SY ORTEGA MD) Family Medical History No Pertinent Family Hx (SY ORTEGA MD) Physical Exam Vital Signs Vital Signs - First Documented 05/06/21 17:33 Temp 36.7 Pulse 101 Resp 16 B/P (MAP) 145/120 (128) Pulse Ox 99 (VIJAY,ISAAC J) Vital Signs Capillary Refill : (SY ORTEGA MD) Height, Weight, BMI Height: 5'3.00" Weight: 235lbs. oz. 106.362112xp; 41.00 BMI Method:Stated General Appearance: No Apparent Distress, WD/WN, Anxious HEENT: PERRL/EOMI Neck: Normal Inspection Respiratory: Lungs Clear, Normal Breath Sounds, No Accessory Muscle Use, No Res piratory Distress, Other (mild tenderness left anterior chest walll (not exactly like her chest pain)) Cardiovascular: Regular Rate, Rhythm, No Edema Gastrointestinal: Normal Bowel Sounds, Non Tender, Soft Extremity: Normal Capillary Refill, Normal Inspection, Normal Range of Motion, Non Tender Neurologic/Psychiatric: Alert, Oriented x3, No Motor/Sensory Deficits, Normal Mood/Affect Skin: Normal Color, Warm/Dry (SY ORTEGA MD) Progress/Results/Core Measures Results/Orders Lab Results Laboratory Tests Test 05/06/21 17:53 Range/Units White Blood Count 7.5 4.3-11.0 10^3/uL Red Blood Count 4.49 3.80-5.11 10^6/uL Hemoglobin 11.0 L 11.5-16.0 g/dL Hematocrit 37 35-52 % Mean Corpuscular Volume 82 80-99 fL Mean Corpuscular Hemoglobin 25 25-34 pg Mean Corpuscular Hemoglobin Concent 30 L 32-36 g/dL Red Cell Distribution Width 14.4 10.0-14.5 % Platelet Count 384 130-400 10^3/uL Mean Platelet Volume 9.0 9.0-12.2 fL Immature Granulocyte % (Auto) 0 % Neutrophils (%) (Auto) 61 42-75 % Lymphocytes (%) (Auto) 30 12-44 % Monocytes (%) (Auto) 5 0-12 % Eosinophils (%) (Auto) 2 0-10 % Basophils (%) (Auto) 1 0-10 % Neutrophils # (Auto) 4.6 1.8-7.8 10^3/uL Lymphocytes # (Auto) 2.3 1.0-4.0 10^3/uL Monocytes # (Auto) 0.4 0.0-1.0 10^3/uL Eosinophils # (Auto) 0.2 0.0-0.3 10^3/uL Basophils # (Auto) 0.1 0.0-0.1 10^3/uL Immature Granulocyte # (Auto) 0.0 0.0-0.1 10^3/uL Sodium Level 139 135-145 MMOL/L Potassium Level 3.9 3.6-5.0 MMOL/L Chloride Level 109 H 98-107 MMOL/L Carbon Dioxide Level 23 21-32 MMOL/L Anion Gap 7 5-14 MMOL/L Blood Urea Nitrogen 12 7-18 MG/DL Creatinine 0.87 0.60-1.30 MG/DL Estimat Glomerular Filtration Rate 76 BUN/Creatinine Ratio 14 Glucose Level 92 70-105 MG/DL Calcium Level 10.0 8.5-10.1 MG/DL Troponin I < 0.028 <0.028 NG/ML Serum Test, Qualitative NEGATIVE NEGATIVE (ISAAC LINARES) Vital Signs/I&O 05/06/21 17:33 Temp 36.7 Pulse 101 Resp 16 B/P (MAP) 145/120 (128) Pulse Ox 99 (ISAAC LINARES) Progress Progress Note : Time: 19:25 Progress Note Assumed care of the patient at shift change. She has experienced no material deterioration during her ER stay. It is felt that anxiety is a large part of her intermittent, spontaneous chest pain. It does not appear to be anything emergent. Pulmonary embolism seems very unlikely since the pain comes and goes and only lasts for a few minutes. Her cardiac enzymes after 3 days of intermittent chest pains are undetectable. Myocarditis is much less likely. We will encourage her to follow-up with her primary care doctor if her symptoms persist. (ISAAC LINARES) Initial ECG Impression Date: May 06, 2021 Initial ECG Impression Time: 17:20 Initial ECG Rate: 98 Initial ECG Rhythm: Normal Sinus Initial ECG Intervals: OR Initial ECG Impression: Normal Initial ECG Comparisson: No Previous ECG Available (SY ORTEGA MD) Diagnostic Imaging Diagonstic Imaging: Xray Plain Films/CT/US/NM/MRI: chest Comments [facility] [place], [place] NAME: CORRINA VELA [facility] REC#: [id number] PT STATUS: REG ER : 1990 PHYSICIAN: SY ORTEGA MD ADMIT DATE: 05/06/21/ER Signed Date of Exam:05/06/21 CHEST 1 VIEW, AP/PA ONLY EXAM: CHEST 1 VIEW, AP/PA ONLY INDICATION: Chest pain. COMPARISON: Chest radiograph 03/22/2020. FINDINGS: Normal heart size and pulmonary vascularity. No dense consolidation, pleural effusion or pneumothorax. No acute osseous findings. IMPRESSION: Negative chest. Dictated by: Dictated on workstation # [id number] Dict: 05/06/21 1838 Trans: 05/06/21 190 [facility] [id number] Interpreted by: YARELI CRYSTAL MD Electronically signed by: YARELI CRYSTAL MD 05/06/21 1903 Reviewed: Reviewed by Me (ISAAC LINARES) Departure Impression Primary Impression: Chest wall pain Disposition: 01 HOME, SELF-CARE Condition: Stable Departure-Patient Inst. Decision time for Depature: 19:30 (ISAAC LINARES) Referrals: [facility] (PCP) Primary Care Physician ANTONIO GARCIA APRN (Family) Primary Care Physician Patient Instructions: Chest Pain That Is Not Caused by the Heart (DC) Add. Discharge Instructions: Your chest pain does not appear to be from your heart. You do not have any elevated troponin or other evidence of myocarditis on EKG. You can be e xperiencing this pain for irritation of the lining of your pleura, your chest wall muscles and joints or even a pinched nerve in your back that radiates around and serves your chest. Other possibilities include your strong history of gastroesophageal reflux disease. I would suggest ibuprofen 800 mg every 8 hours as necessary for pain. Tylenol 1000 mg every 8 hours necessary for pain. Warm heating pads applied. Site of pain. Following up with your doctor and discussing appropriate management of your symp toms and work-up should be your next goal. SY ORTEGA MD May 06, 2021 17:30 ISAAC LINARES May 06, 2021 19:30
[2021-05-06 18:04] LABS: BASOPHILS # (AUTO) 0.1 10^3/uL (0.0-0.1); BASOPHILS % (AUTO) 1 % (0-10); EOSINOPHILS # (AUTO) 0.2 10^3/uL (0.0-0.3); EOSINOPHILS % (AUTO) 2 % (0-10); HEMATOCRIT 37 % (35-52); LYMPHOCYTES # (AUTO) 2.3 10^3/uL (1.0-4.0); LYMPHOCYTES % (AUTO) 30 % (12-44); MEAN CORPUSCULAR HEMOGLOBIN 25 pg (25-34); MEAN CORPUSCULAR HGB CONC 30 g/dL (32-36); MEAN CORPUSCULAR VOLUME 82 fL (80-99); MONOCYTES # (AUTO) 0.4 10^3/uL (0.0-1.0); MONOCYTES % (AUTO) 5 % (0-12); NEUTROPHILS # (AUTO) 4.6 10^3/uL (1.8-7.8); NEUTROPHILS % (AUTO) 61 % (42-75); PLATELET COUNT 384 10^3/uL (130-400); WHITE BLOOD COUNT 7.5 10^3/uL (4.3-11.0)
[2021-05-06 18:18] LABS: CHLORIDE 109 MMOL/L (98-107); POTASSIUM 3.9 MMOL/L (3.6-5.0); SODIUM 139 MMOL/L (135-145)
[2021-05-06 18:20] LABS: GLUCOSE 92 MG/DL (70-105)
[2021-05-06 18:21] LABS: CARBON DIOXIDE 23 MMOL/L (21-32)
[2021-05-06 18:24] LABS: CREATININE SERUM 0.87 MG/DL (0.60-1.30); GFR ESTIMATED 76
[2021-05-06 18:25] LABS: BUN/CREATININE RATIO 14
--- NOTE | 2021-05-06 18:40 | Diagnostic Imaging Report ---
EXAM: CHEST 1 VIEW, AP/PA ONLY INDICATION: Chest pain. COMPARISON: Chest radiograph 03/22/2020. FINDINGS: Normal heart size and pulmonary vascularity. No dense consolidation, pleural effusion or pneumothorax. No acute osseous findings. IMPRESSION: Negative chest. Dictated by: Dictated on workstation # [id number]
[2021-05-06 22:45] VITALS: BP 145/111
== END 2021-05-06 19:43 | disposition home or self-care (01) ==
LOC: EDUNIT# 17:07 → ER 17:09
DX: R07.89 Other chest pain (principal)
CPT/HCPCS: 36415; 71045; 80048; 84484; 84703; 85025; 93005

== ENCOUNTER 2023-07-07 17:18 | Outpatient (CLI) | payer MEDICAID ==
[~2023-07-07] VITALS: Ht 157 cm; Wt 122.5 kg
[~2023-07-07 17:18] MED LIST changes: +PREN-142 PO
[2023-07-07 17:30] VITALS: BP 139/70
[2023-07-07 17:35] VITALS: BP 139/70
[2023-07-07 18:15] VITALS: BP 150/91
[2023-07-07 18:17] VITALS: BP 163/63
[2023-07-07 18:21] VITALS: BP 148/72
[2023-07-07] MEDS ORDERED: FERR325T18 PO (18:22)
[2023-07-07 18:24] LABS: AMORPHOUS SEDIMENT,UR FEW AMOR URATES /LPF; CLARITY,URINE CLEAR; COLOR,URINE YELLOW
[2023-07-07 18:25] LABS: BACTERIA,URINE TRACE /HPF; BILIRUBIN,URINE NEGATIVE (NEGATIVE); GLUCOSE, URINE (UA) NEGATIVE (NEGATIVE); KETONES,URINE TRACE (NEGATIVE); LEUKOCYTE ESTERASE ,URINE NEGATIVE (NEGATIVE); NITRITE,URINE NEGATIVE (NEGATIVE); PH,URINE 6.5 (5-9); PROTEIN,URINE NEGATIVE (NEGATIVE)
--- NOTE | 2023-07-08 07:48 | Physician Query-Final Dx ---
Clinic Account Progress/Dx Physician Query: Please give diagnosis Please include # weeks gestation Date of Service Jul 07, 2023 at 17:18 CHASITY,SepJul 08, 2023 07:48
== END 2023-07-07 18:55 | disposition home or self-care (01) ==
LOC: WSo 17:18 → LDRP 17:19 → WSo 18:55
PROVIDERS: ATTEND Family Medicine
DX: O42.913 Preterm premature rupture of membranes, unspecified as to length of time between rupture and onset of labor, third trimester (principal); Z3A.33 33 weeks gestation of pregnancy
CPT/HCPCS: 81000; 84112; G0463; Q0114; 36415; 89060; 99213

== ENCOUNTER → 2023-07-24 | Outpatient (CLI) | payer MEDICAID ==
[~2023-07-24] VITALS: Wt 122.5 kg
[~2023-07-24] MED LIST changes: +FERR325T18 PO
[2023-07-24] MEDS: IRON SUCROSE 200 MG/10 ML VIAL IV ONE (09:15)
[2023-07-24 09:22] VITALS: BP 151/88
== END ==
LOC: SDC 08:49
PROVIDERS: ATTEND Family Medicine
DX: Z34.93 Encounter for supervision of normal pregnancy, unspecified, third trimester (principal); D50.9 Iron deficiency anemia, unspecified
CPT/HCPCS: 96365

== ENCOUNTER 2023-08-07 22:14 | Outpatient (CLI) | payer MEDICAID ==
[~2023-08-07] VITALS: Ht 157.5 cm; Wt 124.1 kg
[2023-08-07 22:57] VITALS: BP 130/93
[2023-08-07 23:05] VITALS: BP 146/88
[2023-08-07 23:37] LABS: CLARITY,URINE CLEAR; COLOR,URINE YELLOW; PH,URINE 5.5 (5-9)
[2023-08-07 23:38] LABS: AMORPHOUS SEDIMENT,UR FEW AMOR URATES /LPF; BACTERIA,URINE MODERATE /HPF; BILIRUBIN,URINE NEGATIVE (NEGATIVE); CALCIUM OXALATE CRYSTALS,UR FEW /LPF; GLUCOSE, URINE (UA) NEGATIVE (NEGATIVE); KETONES,URINE NEGATIVE (NEGATIVE); LEUKOCYTE ESTERASE ,URINE 2+ (NEGATIVE); NITRITE,URINE NEGATIVE (NEGATIVE); PROTEIN,URINE 1+ (NEGATIVE); RBC,URINE 0-2 /HPF; SQUAMOUS EPITHELIAL CELL,UR TNTC /HPF
--- NOTE | 2023-08-10 08:37 | Physician Query-Final Dx ---
Clinic Account Progress/Dx Physician Query: Please give diagnosis Please include # weeks gestation Date of Service Aug 07, 2023 at 22:14 CHASITY,SepAug 10, 2023 08:37
== END 2023-08-07 23:59 ==
LOC: WSo 22:14 → LDRP 22:15 → WSo 23:59
PROVIDERS: ATTEND Family Medicine
DX: O47.1 False labor at or after 37 completed weeks of gestation (principal); Z3A.38 38 weeks gestation of pregnancy
CPT/HCPCS: 81000; 87088

== ENCOUNTER 2023-08-09 19:07 | Inpatient (IN) | payer MEDICAID ==
[~2023-08-09] VITALS: Ht 157.5 cm; Wt 125.1 kg
[2023-08-09] VITALS (8 sets, daily range): BP systolic 112–136; BP diastolic 60–100
--- OUTSIDE RECORDS SUMMARY | 2023-08-09 19:10 | XMS REPORT ---
Author Author [facility] ter of [facility] ter of [facility] Address Unknown Phone Unavailable Care Team Providers Care Rental Clerk Name Role Phone JOSE CONNORYogi ANTONIO Unavailable PROBLEMS Type Condition ICD9-CM Code [id number] Code Onset Dates Condition Status W/U Status Risk SNOMED Code Notes Problem PTSD (post-traumat ic stress disorder) F43.10 confirmed 25353696 Problem Moderate episode of recurrent major depressive disorder F33.1 confirmed 041158980 Problem Anxiety F41.9 confirmed 89892594 Problem Attention deficit hyperactivity disorder (ADHD), predominantly inattentive type F90.0 confirmed 06875315 Problem Binge eating disorder F50.81 confirmed 046160579 Problem Body mass index (BMI) 40.0-44.9, adult Z68.41 confirmed 276677469 Problem Gastroesophag eal reflux disease, esophagitis presence not specified K21.9 confirmed 834104447 Problem Loss of taste R43.2 confirmed 455009 09 Problem Vitamin D deficiency E55.9 confirmed 67750266 Problem History of anemia Z86.2 confirmed 439364709 Problem ROMERO (generalized anxiety disorder) F41.1 confirmed 98111432 Problem Seasonal allergies J30.2 confirmed 596937518 Problem care in first trimester Z34.91 confirm 533253271 Problem Morbid (severe) obesity due to excess calories E66.01 confirmed 365378525 Problem Allergic rhinitis J30.9 confirmed 22834844 Problem Iron deficiency anemia D50.9 confirmed 17886515 Problem Encounter for initial prescription of transdermal patch hormonal contraceptive device Z30.016 confirmed 551881936 Problem Well woman exam with routine gynecological exam Z01.419 confirmed [id number] ALLERGIES No Known Allergies ENCOUNTERS from 1989 to 2023-03-19 Encounter Location Date Provider Diagnosis [facility] [address] [place] [address] Mar, ANTONIO COOK Attention deficit hyperactivity disorder (ADHD), predominantly inattentive type F90.0 ; Moderate episode of recurrent major depressive disorder F33.1 ; Fatigue, unspecified type R53.83 ; Vitamin D deficiency E55.9 and Encounter for Depo-Provera contraception Z30.42 IMMUNIZATIONS Vaccine Route Administration Date Status Influenza, seasonal, injecta ble (split), for 3 yrs and up Unknown Jun 06, 2010 Pending COVID-19, SCOTT, 0.5mL IM Intramuscular December 06 Administered Booster PFIZER, COVID-19, 0.3mL IM Intramuscular Sep 142021 Administered PRIVATE FLULAVAL QUAD 0.5ML (6 MO AND UP) 2019 IM Intramuscular Aug 22, 2020 Administered influenza IIV3 (history) Unknown Jul 20, 2014 Pen mari SOCIAL HISTORY Sex Assigned At : Social History Observation Description Sex Assigned At Unknown Alcohol Screen (Audit-C) Question Answer Notes Did you have a drink containing alcohol in the p ast year? No Points 0 Interpretation Negative Sexual History Question Answer Notes Had sex in the past 12 months (vaginal, oral, or anal)? Yes Have you ever had a Sexually transmitted disease ? No Prevention strategies discussed: Condoms with Men only Use protection? No PHQ2 Question Answer Notes In the last 2 weeks, how oft en have you had little interest or pleasure in doing things? Not at all In the last 2 weeks, how oft en have you been feeling down, depressed, or hopeless? Not at all Total PHQ2 Score 0 REASON FOR REFERRAL No Information VITAL SIGNS Height 64 in Mar, Height-cm 162.56 cm Mar, Weight 256 lbs Mar, Weight-kg 116.12 kg Mar, Temperature 97.9 degrees Fahrenheit Mar, Heart Rate 98 bpm Mar, Respiratory Rate 18 bpm Mar, BMI 43.94 kg/m2 Mar, Blood pressure systolic 126 mmHg Mar, Blood pressure diastolic 80 mmHg Mar, MEDICATIONS Medication SIG (Take, Route, Frequency, Duration) Notes Start Date End Date Status Cryselle-28 0.3-30 MG-MCG TAKE ONE (1) TABLET BY MOUTH ONCE DAILY for 28 Not-Taking Pantoprazole Sodium 40 MG TAKE ONE (1) TABLET BY MOUTH ONCE DAILY for 30 Active Lexapro 10 MG 2 tab daily Orally Once a day for 30 days Dec, Active Fexofenadine HCl 180 MG TAKE ONE (1) TABLET BY MOUTH ONCE DAILY for 30 Needs to schedule follow up appt prior to next refill Not-Taking Concerta 54 MG TAKE ONE (1) TABLET BY MOUTH ONCE DAILY IN THE MORNING for 28 Dec, Not-Taking Flonase Allergy Relief 50 MCG/ACT 2 spray in each nostril Nasally Once a day for 30 day(s) Dec, Active Xulane 150-35 MCG/24HR as directed Transdermal once weekly for 4 days apply 1 patch on days 1, 8 and 15 and then off for last week. repeat cycle Jul, Not-Taking PROCEDURES from 1989 to 2023-03-19 Procedure Date Ordered Date Performed Result Body Sit e ROUTINE VENIPUNCTURE 2021-03-25 2021-03-25 N/A REASON FOR VISIT CHM MEDICAL (GENERAL) HISTORY Type Description Date Medical History depression Medical History PTSD Medical History obesity Medical History denies any hx of heart problem o r seizure 05/14/17 Medical History hx of anemia Surgical History No Surgical history information Hospitalization History childbirth only Hospitalization History Denies any past psych ho spitalization MENTAL STATUS No Information ASSESSMENTS Encounter Date Diagnosis Assessment Notes Treatment Notes Treatment Clinical Notes Mar, Moderate episode of recurrent major depressive disorder (ICD-10 - F33.1) Labs today Preg test in office Refill medication as ordered ER/ Return precautions given Med changes dependent on results Follow-up in 3 mo/ dependent on resutls, Depression Treatment: Care Instructions material was published Mar, Attention deficit hyperactivity disorder (ADHD), predominantly inattentive type (ICD-10 - F90.0) as above Mar, Fatigue, unspecified type (ICD-10 - R53.83) Fatigue: Care Instructions material was published as above Mar, Vitamin D deficiency (ICD-10 - E55.9) as above Mar, Encounter for Depo-Provera contraception (ICD-10 - Z30.42) PLAN OF TREATMENT Treatment Notes Assessment Notes Clinical Notes Moderate episode of recurren t major depressive disorder Labs today Preg test in office Refill medication as ordered ER/ Return precautions given Med changes dependent on results Follow-up in 3 mo/ dependent on resutls, Depression Treatment: Care Instructions material was published Attention deficit hyperactiv ity disorder (ADHD), predominantly inattentive type as above Fatigue, unspecified type Fatigue: Care Instructions material was published as above Vitamin D deficiency as above Next Appt Details 3 Months Reason: Provider Name:TERRA MOTT SHEYLA, 2023-03-25 02:00:00 PM, [address] , [place], [address], Insurance Providers Payer Name Payer Address Payer Phone Insured Name Patient Relationship to Insured Coverage Start Date Coverage End Date Subscriber Number Group Number [place] [id number] [facility] [phone] Rafat Jara Self - patient is the insured [id number] Medicaid [address] [facility] [id number] Rafat Jara Self - patient is the insured [id number] MEDICATIONS ADMINISTERED Medication Instructions Date of Administration Dosag e Depo-Provera Jul, 1 mL DEPO PROVERA (150 MG/ML) Jul, 150 mg DEPO PROVERA (150 MG/ML) Feb, 150 mg Depo-Provera Mar, 150 mg Depo-Provera Nov, 150 mg
--- OUTSIDE RECORDS SUMMARY | 2023-08-09 19:10 | XMS REPORT ---
Author Author [facility] ter [facility] ter [facility] Address Unknown Phone Unavailable Care Team Providers Care Core Inspector Name Role Phone ANTONIO TOTH Unavailable PROBLEMS Type Condition ICD9-CM Code YIV18-BT Code Onset Dates Condition Status W/U Status Risk SNOMED Code Notes Problem PTSD (post-traumat ic stress disorder) F43.10 confirmed 20855698 Problem care in third trimester Z34.93 confirmed 371255671 Problem Moderate episode of recurrent major depressive disorder F33.1 confirmed 973125204 Problem Anxiety F41.9 confirmed 90736560 Problem Attention deficit hyperactivity disorder (ADHD), predominantly inattentive type F90.0 confirmed 26493278 Problem Binge eating disorder F50.81 confirmed 975104492 Problem Body mass index (BMI) 40.0-44.9, adult Z68.41 confirmed 987048801 Problem Gastroesophag eal reflux disease, esophagitis presence not specified K21.9 confirmed 999007289 Problem Loss of taste R43.2 confirmed 893097 09 Problem Vitamin D deficiency E55.9 confirmed 80369911 Problem History of anemia Z86.2 confirmed 447664093 Problem ROMERO (generalized anxiety disorder) F41.1 confirmed 37328346 Problem Seasonal allergies J30.2 confirmed 786022272 Problem care in first trimester Z34.91 confirm 359476854 Problem Morbid (severe) obesity due to excess calories E66.01 confirmed 826800523 Problem care in second trimester Z34.92 confirmed Problem Allergic rhinitis J30.9 confirmed 83262310 Problem Iron deficiency anemia D50.9 confirmed 54065481 Problem Encounter for initial prescription of transdermal patch hormonal contraceptive device Z30.016 confirmed 611888367 Problem Well woman exam with routine gynecological exam Z01.419 confirmed 6044965029 [id number] ALLERGIES No Known Allergies ENCOUNTERS from 1989 to 2023-08-02 Encounter Location Date Provider Diagnosis [facility] [address] [place] [address] Jul, ANTONIO COOK Attention deficit hyperactivity disorder (ADHD), predominantly inattentive type F90.0 ; Moderate episode of recurrent major depressive disorder F33.1 ; Fatigue, unspecified type R53.83 ; Body mass index (BMI) 40.0-44.9, adult Z68.41 ; Gastroesophageal reflux disease, esophagitis presence not specified K21.9 ; Depo-Provera contraceptive status Z30.42 and Encounter for Depo-Provera contraception Z30.42 IMMUNIZATIONS Vaccine Route Administration Date Status PRIVATE FLU 23-24 (FLULAVAL) 6MO & UP IM Intramuscular Jun 10, 2023 Administered Booster PFIZER, COVID-19, 0.3mL IM Intramuscular Sep 142021 Administered COVID-19, SCOTT, 0.5mL IM Intramuscular December 06 Administered PRIVATE FLULAVAL QUAD 0.5ML (6 MO AND UP) 2019 IM Intramuscular Aug 22, 2020 Administered PRIVATE TDAP (BOOSTRIX) IM Intramuscular Jun 10, 2023 Administered influenza IIV3 (history) Unknown Jul 20, 2014 Pen ding Influenza, seasonal, injecta ble (split), for 3 yrs and up Unknown Jun 06, 2010 Pending SOCIAL HISTORY Sex Assigned At : Social [...] No Information VITAL SIGNS Height 64 in Jul, Height-cm 162.56 cm Jul, Weight 256.4 lbs Jul, Weight-kg 116.3 kg Jul, Temperature 97.2 degrees Fahrenheit Jul, Heart Rate 91 bpm Jul, Respiratory Rate 18 bpm Jul, BMI 44.01 kg/m2 Jul, Blood pressure systolic 116 mmHg Jul, Blood pressure diastolic 70 mmHg Jul, MEDICATIONS Medication SIG (Take, Route, Frequency, Duration) Notes Start Date End Date Status Ondansetron 4 MG 1 tablet on the tong ue and allow to dissolve Orally every 6 hrs as needed Mar, Active Pantoprazole Sodium 40 MG TAKE ONE (1) T ABLET BY MOUTH ONCE DAILY for 30 days Active 27-1 MG 1 tablet Orally Once a day for 90 days Active Ferrous Sulfate 325 (65 Fe) MG 1 tablet Orally twice a day for 90 days Mar, Active REASON FOR VISIT Medication Management. MAGALYS Carlos MEDICAL (GENERAL) HISTORY Type Description Date Medical [...] Assessment Notes Treatment Notes Treatment Clinical Notes Jul, Moderate episode of recurrent major depressive disorder (ICD-10 - F33.1) No SI, No HI Increase Concerta to 36mg Will follow-up by phone in 1 mo Will return for labs ER/ Return precautions given Follow-up in person in 4 mo Jul, Attention deficit hyperactivity disorder (ADHD), predominantly inattentive type (ICD-10 - F90.0) as above Jul, Fatigue, unspecified type (ICD-10 - R53.83) as above Jul, Body mass index (BMI ) 40.0-44.9, adult (ICD-10 - Z68.41) as above Jul, Gastroesophageal reflux disease, esophagitis presence not specified (ICD-10 - K21.9) as above Jul, Depo-Provera contraceptive status (ICD-10 - Z30.42) as above Jul, Encounter for Depo-Provera contraception (ICD-10 - Z30.42) as above PLAN OF TREATMENT Treatment Notes Assessment Notes Clinical Notes Moderate episode of recurren t major depressive disorder No SI, No HI Increase Concerta to 36mg Will follow-up by phone in 1 mo Will return for labs ER/ Return precautions given Follow-up in person in 4 mo Attention deficit hyperactiv ity disorder (ADHD), predominantly inattentive type as above Fatigue, unspecified type as above Body mass index (BMI) 40.0-44.9, adult a s above Gastroesophageal reflux dise ase, esophagitis presence not specified as above Depo-Provera contraceptive status as abo ve Encounter for Depo-Provera contraception as above Next Appt Details 4 Weeks by phone Reason: Provider Name:TERRA CARRION, 2023-08-05 02:00:00 PM, [address] [place], [address], Provider Name:TERRA CARRION, 2023-08-05 02:30:00 PM, [address] [place], [address], Insurance Providers Payer Name Payer Address Payer Phone Insured Name Patient Relationship to Insured Coverage Start Date Coverage End Date Subscriber Number Group Number [facility]OVANNI [facility] [address] [facility] [phone] Rafat Jara Self - patient is the insured [id number] Medicaid [address] [facility] [address] Rafat Jara Self - patient is the insured [id number] MEDICATIONS ADMINISTERED Medication Instructions Date of Administration Dosag e Depo-Provera Mar, 150 mg Depo-Provera Jul, 1 mL DEPO PROVERA (150 MG/ML) Feb, 150 mg Depo-Provera Nov, 150 mg DEPO PROVERA (150 MG/ML) Jul, 150 mg
--- OUTSIDE RECORDS SUMMARY | 2023-08-09 19:10 | XMS REPORT ---
Author Author [facility] ter of [facility] ter of [facility] Address Unknown Phone Unavailable Care Team Providers Care Conservation Science Officer Name Role Phone JOSE COOK ANTONIO Unavailable PROBLEMS Type Condition ICD9-CM Code ASL34-GV Code Onset Dates Condition Status W/U Status Risk SNOMED Code Notes Problem PTSD (post-traumat ic stress disorder) F43.10 confirmed 02661845 Problem Moderate episode of recurrent major depressive disorder F33.1 confirmed 055181837 Problem Anxiety F41.9 confirmed 85163352 Problem Attention deficit hyperactivity disorder (ADHD), predominantly inattentive type F90.0 confirmed 29387553 Problem Binge eating disorder F50.81 confirmed 826128449 Problem Body mass index (BMI) 40.0-44.9, adult Z68.41 confirmed 919367627 Problem Gastroesophag eal reflux disease, esophagitis presence not specified K21.9 confirmed 875047964 Problem Loss of taste R43.2 confirmed 919634 09 Problem Vitamin D deficiency E55.9 confirmed 96723124 Problem History of anemia Z86.2 confirmed 490886505 Problem ROMERO (generalized anxiety disorder) F41.1 confirmed 38512876 Problem Seasonal allergies J30.2 confirmed 259302555 Problem care in first trimester Z34.91 confirm 190163435 Problem Morbid (severe) obesity due to excess calories E66.01 confirmed 005403485 Problem Allergic rhinitis J30.9 confirmed 08164425 Problem Iron deficiency anemia D50.9 confirmed 46698061 Problem Encounter for initial prescription of transdermal patch hormonal contraceptive device Z30.016 confirmed 483436904 Problem Well woman exam with routine gynecological exam Z01.419 confirmed [id number] ALLERGIES No Known Allergies ENCOUNTERS from 1989 to 2023-03-06 Encounter Location Date Provider Diagnosis [facility] [address] [id number] [place] [address] 14 Mar, 2021 ANTONIO COOK IMMUNIZATIONS Vaccine Route Administration Date Status PRIVATE FLULAVAL QUAD 0.5ML (6 MO AND UP) 2019 IM Intramuscular Aug 22, 2020 Administered Influenza, seasonal, injecta ble (split), for 3 yrs and up Unknown Jun 06, 2010 Pending COVID-19, SCOTT, 0.5mL IM Intramuscular December 06 Administered Booster PFIZER, COVID-19, 0.3mL IM Intramuscular Sep 142021 Administered influenza IIV3 (history) Unknown Jul 20, [...] Score 0 REASON FOR REFERRAL No Information MEDICATIONS Medication SIG (Take, Route, Frequency, Duration) [...] for last week. repeat cycle Jul, Not-Taking REASON FOR VISIT No Information MEDICAL (GENERAL) HISTORY Type Description Date Medical History depression Medical History PTSD Medical History obesity Medical History denies any hx of heart problem o r seizure 05/14/17 Medical History hx of anemia Surgical History No Surgical history information Hospitalization History childbirth only Hospitalization History Denies any past psych ho spitalization MENTAL STATUS No Information PLAN OF TREATMENT Next Appt Details Provider Name:TERRA CARRION, 2023-03-25 02:00:00 PM, [address] [facility], [place], [address], Insurance Providers Payer Name Payer Address Payer Phone Insured Name Patient Relationship to Insured Coverage Start Date Coverage End Date Subscriber Number Group Number [facility] [address] [facility] [address] Rafat Jara Self - patient is the insured [id number] Medicaid [address] [facility] [address] Rafat Jara Self - patient is the insured [id number] MEDICATIONS ADMINISTERED Medication Instructions Date of Administration Dosag e Depo-Provera Nov, 150 mg DEPO PROVERA (150 MG/ML) Jul, 150 mg DEPO PROVERA (150 MG/ML) Feb, 150 mg Depo-Provera Jul, 1 mL Depo-Provera Mar, 150 mg
--- OUTSIDE RECORDS SUMMARY | 2023-08-09 19:10 | XMS REPORT ---
Author Author Pending [facility] ter of [facility] ter [facility] Address Unknown Phone Unavailable Care Team Providers Care Interviewing Clerk Name Role Phone ANTONIO TOTH Unavailable PROBLEMS ALLERGIES No Known Allergies ENCOUNTERS from 1989 to 2023-03-03 IMMUNIZATIONS SOCIAL HISTORY No smoking Hx information available REASON FOR REFERRAL No Information MEDICATIONS REASON FOR VISIT MEDICAL (GENERAL) HISTORY MENTAL STATUS ASSESSMENTS PLAN OF TREATMENT Insurance Providers MEDICATIONS ADMINISTERED
--- OUTSIDE RECORDS SUMMARY | 2023-08-09 19:10 | XMS REPORT ---
Author Author [facility] ter of [facility] ter of [facility] Address Unknown Phone Unavailable Care Team Providers Care Electroencephalographic Technician Name Role Phone JOSE COOK ANTONIO Unavailable [phone] PROBLEMS Type Condition ICD9-CM Code YEK01-CT Code Onset Dates Condition Status W/U Status Risk SNOMED Code Notes Problem PTSD (post-traumat ic stress disorder) F43.10 confirmed 50761330 Problem Moderate episode of recurrent major depressive disorder F33.1 confirmed 043519072 Problem Anxiety F41.9 confirmed 84380732 Problem Attention deficit hyperactivity disorder (ADHD), predominantly inattentive type F90.0 confirmed 39358713 Problem Binge eating disorder F50.81 confirmed 083471096 Problem Body mass index (BMI) 40.0-44.9, adult Z68.41 confirmed 345245364 Problem Gastroesophag eal reflux disease, esophagitis presence not specified K21.9 confirmed 528656202 Problem Loss of taste R43.2 confirmed 943916 09 Problem Vitamin D deficiency E55.9 confirmed 48300049 Problem History of anemia Z86.2 confirmed 091990067 Problem ROMERO (generalized anxiety disorder) F41.1 confirmed 38415505 Problem Seasonal allergies J30.2 confirmed 084194040 Problem care in first trimester Z34.91 confirm 790267972 Problem Morbid (severe) obesity due to excess calories E66.01 confirmed 412282924 Problem Allergic rhinitis J30.9 confirmed 83573383 Problem Iron deficiency anemia D50.9 confirmed 52127236 Problem Encounter for initial prescription of transdermal patch hormonal contraceptive device Z30.016 confirmed 659185701 Problem Well woman exam with routine gynecological exam Z01.419 confirmed 5854828656 [id number] ALLERGIES No Known Allergies ENCOUNTERS from 1989 to 2023-03-08 Encounter Location Date Provider Diagnosis [facility] [address] [id number] [place] [address] 16 Mar, 2021 ANTONIO COOK Attention deficit hyperactivity disorder (ADHD), predominantly inattentive type F90.0 IMMUNIZATIONS Vaccine Route Administration Date Status Booster PFIZER, COVID-19, 0.3mL IM Intramuscular Sep 142021 Administered COVID-19, SCOTT, 0.5mL IM Intramuscular December 06 21 Administered PRIVATE FLULAVAL QUAD 0.5ML (6 MO [...] repeat cycle Jul, Not-Taking REASON FOR VISIT KRW [place] MEDICAL (GENERAL) HISTORY Type Description Date Medical [...] Notes Treatment Notes Treatment Clinical Notes Mar, Attention deficit hyperactivity disorder (ADHD), predominantly inattentive type (ICD-10 - F90.0) PLAN OF TREATMENT Next Appt Details Provider Name:TERRA CARRION, 2023-03-25 02:00:00 PM, [address] [facility], [place], [address], Insurance Providers Payer Name Payer Address Payer Phone Insured Name Patient Relationship to Insured Coverage Start Date Coverage End Date Subscriber Number Group Number [place] Medicaid [address] [facility] [address] Rafat Jara Self - patient is the insured [id number] [address] Rafat Jara R Self - patient is the insured [id number] MEDICATIONS ADMINISTERED Medication Instructions Date of Administration Dosag e Depo-Provera Nov, 150 mg Depo-Provera Mar, 150 mg Depo-Provera Jul, 1 mL DEPO PROVERA (150 MG/ML) Jul, 150 mg DEPO PROVERA (150 MG/ML) Feb, 150 mg
--- OUTSIDE RECORDS SUMMARY | 2023-08-09 19:10 | XMS REPORT ---
Author Author [facility] ter [facility] ter [facility] Address Unknown Phone Unavailable Care Team Providers Care Landfill Gas Collection Operator Name Role Phone ANTONIO TOTH Unavailable PROBLEMS Type Condition ICD9-CM Code JBN28-MP Code Onset Dates Condition Status W/U Status Risk SNOMED Code Notes Problem PTSD (post-traumat ic stress disorder) F43.10 confirmed 87591775 Problem care in second trimester Z34.92 confirmed Problem Moderate episode of recurrent major depressive disorder F33.1 confirmed 535784423 Problem Anxiety F41.9 confirmed 21690088 Problem Attention deficit hyperactivity disorder (ADHD), predominantly inattentive type F90.0 confirmed 26484082 Problem Binge eating disorder F50.81 confirmed 838984068 Problem Body mass index (BMI) 40.0-44.9, adult Z68.41 confirmed 589155770 Problem Gastroesophag eal reflux disease, esophagitis presence not specified K21.9 confirmed 097983735 Problem Loss of taste R43.2 confirmed 312343 09 Problem Vitamin D deficiency E55.9 confirmed 44113088 Problem History of anemia Z86.2 confirmed 045331888 Problem ROMERO (generalized anxiety disorder) F41.1 confirmed 06213160 Problem Seasonal allergies J30.2 confirmed 135870684 Problem care in first trimester Z34.91 confirm 477349454 Problem Morbid (severe) obesity due to excess calories E66.01 confirmed 516403788 Problem Allergic rhinitis J30.9 confirmed 65067206 Problem Iron deficiency anemia D50.9 confirmed 93774494 Problem Encounter for initial prescription of transdermal patch hormonal contraceptive device Z30.016 confirmed 484141175 Problem Well woman exam with routine gynecological exam Z01.419 confirmed 8732296477 [id number] ALLERGIES No Known Allergies ENCOUNTERS from 1989 to 2023-04-16 Encounter Location Date Provider Diagnosis [facility] [address] [place] [address] Apr, ANTONIO COOK IMMUNIZATIONS Vaccine Route Administration Date Status Influenza, seasonal, injecta ble (split), for 3 yrs and up Unknown Jun 06, 2010 Pending Booster PFIZER, COVID-19, 0.3mL IM Intramuscular Sep [...] Ondansetron 4 MG 1 tablet on the tongue and allow to dissolve Orally every 6 hrs as needed Mar, Active Lexapro 10 MG 2 tab daily Orally Once a day for 30 days Dec, Active Pantoprazole Sodium 40 MG TAKE ONE (1) TABLET BY MOUTH ONCE DAILY for 30 Active Fexofenadine HCl 180 MG TAKE ONE (1) TABLET BY MOUTH ONCE DAILY for 30 Needs to schedule follow up appt prior to next refill Not-Taking Cryselle-28 0.3-30 MG-MCG TAKE ONE (1) TABLET BY MOUTH ONCE DAILY for 28 Not-Taking Flonase Allergy Relief 50 MCG/ACT 2 spray in each nostril Nasally Once a day for 30 day(s) Dec, Active Ferrous Sulfate 325 (65 Fe) MG 1 tablet Orally once a day for 90 days Mar, Active 27-1 MG 1 tablet Orally Once a day for 90 days Active Concerta 54 MG TAKE ONE (1) TABLET BY MOUTH ONCE DAILY IN THE MORNING for 28 10 Dec, 2022 Not-Taking Xulane 150-35 MCG/24HR as directed Transdermal once weekly for 4 days apply 1 patch on days 1, 8 and 15 and then off for last week. repeat cycle 11 Jul, 2022 Not-Taking REASON FOR VISIT No Information MEDICAL (GENERAL) HISTORY Type Description Date Medical History depression Medical History PTSD Medical History obesity Medical History denies any hx of heart problem o r seizure 05/14/17 Medical History hx of anemia Surgical History No Surgical history information Hospitalization History childbirth only Hospitalization History Denies any past psych ho spitalization MENTAL STATUS No Information PLAN OF TREATMENT Medication Medication Name Sig Start Date Stop Date Ondansetron 4 MG 1 tablet on the tong ue and allow to dissolve Orally every 6 hrs as needed Mar, 27-1 MG 1 tablet Orally Once a day for 90 days Ferrous Sulfate 325 (65 Fe) MG 1 tablet Orally once a day for 90 days Mar, Next Appt Details Provider Name:TERRA CARRION, 2023-04-22 02:15:00 PM, [address] [place], [address], Insurance Providers Payer Name Payer Address Payer Phone Insured Name Patient Relationship to Insured Coverage Start Date Coverage End Date Subscriber Number Group Number [facility] [address] [facility] [address] Rafat Jara R Self - patient is the insured [id number] Medicaid [address] [facility] [address] Rafat Jara R Self - patient is the insured [id number] MEDICATIONS ADMINISTERED Medication Instructions Date of Administration Dosag e Depo-Provera Nov, 150 mg Depo-Provera Jul, 1 mL Depo-Provera Mar, 150 mg DEPO PROVERA (150 MG/ML) Jul, 150 mg DEPO PROVERA (150 MG/ML) Feb, 150 mg
--- OUTSIDE RECORDS SUMMARY | 2023-08-09 19:10 | XMS REPORT ---
Author Author [facility] ter of [facility] ter of [facility] Address Unknown Phone Unavailable Care Team Providers Care Animal Assisted Therapist Name Role Phone GARCIA LAURIE COOKSEY Unavailable PROBLEMS Type Condition ICD9-CM Code GNV18-PC Code Onset Dates Condition Status W/U Status Risk SNOMED Code Notes Problem PTSD (post-traumat ic stress disorder) F43.10 confirmed 21219680 Problem care in second trimester Z34.92 confirmed Problem Moderate episode of recurrent major depressive disorder F33.1 confirmed 727434819 Problem Anxiety F41.9 confirmed 05151604 Problem Attention deficit hyperactivity disorder (ADHD), predominantly inattentive type F90.0 confirmed 81859075 Problem Binge eating disorder F50.81 confirmed 297888682 Problem Body mass index (BMI) 40.0-44.9, adult Z68.41 confirmed 481175261 Problem Gastroesophag eal reflux disease, esophagitis presence not specified K21.9 confirmed 468521002 Problem Loss of taste R43.2 confirmed 179774 09 Problem Vitamin D deficiency E55.9 confirmed 90449045 Problem History of anemia Z86.2 confirmed 596320930 Problem ROMERO (generalized anxiety disorder) F41.1 confirmed 13047897 Problem Seasonal allergies J30.2 confirmed 860796384 Problem care in first trimester Z34.91 confirm 565952828 Problem Morbid (severe) obesity due to excess calories E66.01 confirmed 405397924 Problem Allergic rhinitis J30.9 confirmed 86165616 Problem Iron deficiency anemia D50.9 confirmed 86939406 Problem Encounter for initial prescription of transdermal patch hormonal contraceptive device Z30.016 confirmed 776480351 Problem Well woman exam with routine gynecological exam Z01.419 confirmed 2317981815 [id number] ALLERGIES No Known Allergies ENCOUNTERS from 1989 to 2023-03-30 Encounter Location Date Provider Diagnosis [facility] [place] [address] [id number] [place] [address] January, ANTONIO COOK IMMUNIZATIONS Vaccine Route Administration Date Status Booster [...] IN THE MORNING for 28 Dec, Not-Taking Xulane 150-35 MCG/24HR as directed Transdermal once weekly for 4 days apply 1 patch on days 1, 8 and 15 and then off for last week. repeat cycle Jul, Not-Taking REASON FOR VISIT BISI morris faxed MEDICAL (GENERAL) HISTORY Type Description Date Medical [...] days Mar, Next Appt Details Provider Name:TERRA MOTT SHEYLA, 2023-04-22 02:15:00 PM, [address] , [place], [address], Insurance Providers Payer Name Payer Address Payer Phone Insured Name Patient Relationship to Insured Coverage Start Date Coverage End Date Subscriber Number Group Number [place] Medicaid [address] [facility] [id number] Rafat Jara Self - patient is the insured [id number] [facility] [address] [facility] [address] Rafat Jara Self - patient is the insured [id number] MEDICATIONS ADMINISTERED Medication Instructions Date of Administration Dosag e Depo-Provera Nov, 150 mg Depo-Provera Mar, 150 mg Depo-Provera Jul, 1 mL DEPO PROVERA (150 MG/ML) Jul, 150 mg DEPO PROVERA (150 MG/ML) Feb, 150 mg
[2023-08-09] MEDS ORDERED: MINERAL OIL 30 ML UDC TOP PRN (19:30)
[2023-08-09] MEDS ORDERED: AMPICILLIN (IV) 2,000 MG in NS (IVPB) 50 ML 50 ML IV SCH (19:30)
[2023-08-09] MEDS ORDERED: LACTATED RINGERS 1,000 ML 500 ML IV PRN (19:30)
[2023-08-09] MEDS ORDERED: D5 LR 1,000 ML IV SOLN 1,000 ML IV ONE (19:41)
[2023-08-09 19:45] LABS: BASOPHILS # (AUTO) 0.1 10^3/uL (0.0-0.1); BASOPHILS % (AUTO) 1 % (0-10); EOSINOPHILS # (AUTO) 0.1 10^3/uL (0.0-0.3); EOSINOPHILS % (AUTO) 1 % (0-10); HEMATOCRIT 29 % (35-52); HEMOGLOBIN 8.8 g/dL (11.5-16.0); LYMPHOCYTES # (AUTO) 2.1 10^3/uL (1.0-4.0); LYMPHOCYTES % (AUTO) 22 % (12-44); MEAN CORPUSCULAR HEMOGLOBIN 24 pg (25-34); MEAN CORPUSCULAR HGB CONC 30 g/dL (32-36); MEAN CORPUSCULAR VOLUME 78 fL (80-99); MEAN PLATELET VOLUME 9.5 fL (9.0-12.2); MONOCYTES # (AUTO) 0.6 10^3/uL (0.0-1.0); MONOCYTES % (AUTO) 7 % (0-12); NEUTROPHILS # (AUTO) 6.3 10^3/uL (1.8-7.8); NEUTROPHILS % (AUTO) 68 % (42-75); PLATELET COUNT 374 10^3/uL (130-400); WHITE BLOOD COUNT 9.3 10^3/uL (4.3-11.0)
[2023-08-09] MEDS: D5 LR 1,000 ML IV SOLN 1,000 ML IV SCH (19:45)
[2023-08-09 19:58] LABS: BACTERIA,URINE NEGATIVE /HPF; BILIRUBIN,URINE NEGATIVE (NEGATIVE); CLARITY,URINE CLEAR; COLOR,URINE YELLOW; GLUCOSE, URINE (UA) NEGATIVE (NEGATIVE); KETONES,URINE NEGATIVE (NEGATIVE); LEUKOCYTE ESTERASE ,URINE TRACE (NEGATIVE); NITRITE,URINE NEGATIVE (NEGATIVE); PH,URINE 6 (5-9); PROTEIN,URINE NEGATIVE (NEGATIVE); WBC,URINE RARE /HPF
[2023-08-09] MEDS ORDERED: LACTATED RINGERS 1,000 ML 1,000 ML IV SCH (21:15)
[2023-08-09] MEDS ORDERED: TERBUTALINE INJ 1 MG/ML (BRETHINE) AMP SC PRN (21:15)
[2023-08-09] MEDS ORDERED: CATHETER FLUSH 10 ML SYR IV SCH (22:00)
[2023-08-10] VITALS (53 sets, daily range): BP systolic 94–159; BP diastolic 52–109
[2023-08-10] MEDS: AMPICILLIN (IV) 1,000 MG in NS (IVPB) 50 ML 50 ML IV SCH ×3 (02:14→10:13)
[2023-08-10] MEDS ORDERED: ACETAMINOPHEN 500 MG TABLET ONE (03:21)
[2023-08-10] MEDS: D5 LR 1,000 ML IV SOLN 1,000 ML IV SCH ×2 (03:23→11:35)
[2023-08-10] MEDS ORDERED: ACETAMINOPHEN 500 MG TABLET PO ONE (03:30)
--- NOTE | 2023-08-10 06:40 | History & Physical-OB ---
OB - Chief Complaint & HPI Date/Time Date of Admission: Date of Admission: Aug 09, 2023 at 19:07 Date seen by a Provider: Aug 10, 2023 Time Seen by a Provider: 06:30 Chief Complaint/History OB-Reason for Admission/Chief: Induction of Labor Hx : 3 Hx Para: 2 Expected Date of Delivery: Aug 20, 2023 Gestational Age in Weeks: 38 Gestational Age in Days: 3 Admission Nurse Assessment Rev: Yes History of Labs GBS positive Allergies and Home Medications Allergies Coded Allergies: No Known Drug Allergies (Unverified , 02/17/10) Patient Home Medication List Home Medication List Reviewed: Yes Ferrous Sulfate (Ferrous Sulfate) 325 Mg (65 Mg Iron) Tablet, 325 MG PO BID, (Reported) Entered as Reported by: GUILLAUME MCCOY on 07/07/231821 Vit No.124/Iron/FA ( Vitamin Tablet) 27 Mg Iron-800 Mcg Tablet, 1 EACH PO, (Reported) Entered as Reported by: REMI MODI on 06/07/238 OB - History Hx of Present Care: Yes Ultrasounds: Abnormal US findings ( growth low percentile) Obstetrical Complications: Growth Restriction Medical Complications: None Obstetrical History Hx Termination: No Hx Multiple Gestation: No Hx Stillbirth: No Hx Complication: No Hx Induced Hypertens: No Hx Maternal Gestational Diabet: No Delivery History Hx Dystocia: No Hx Large For Gestational Age I: No Hx Small for Gestational Age I: No Hx Section: No Hx Vaginal Delivery Post C-Sec: No Hx Blood Disorders: No Patient Past Medical History Anemia Social History/Family History 2nd Hand Smoke Exposure: No Immunizations Influenza Vaccine Up-to-Date: Yes; Up-to-Date OB - Admission Exam Physical Exam Vitals: Vital Signs 08/09/23 08/10/23 08/10/23 21:43 04:40 04:56 Temp 36.7 Pulse 98 Resp 18 B/P (MAP) 122/62 (82) Pulse Ox 98 O2 Delivery Room Air HEENT: Moist Membranes Heart: Rhythm Normal Lungs: Clear Abdomen: Gravid Cervical Dilatation: 2cm Effacement: 75% Station: -3 Membranes: Intact Heart Rate: 140's Accelerations: Accelerations Present Decelerations: No Decelerations Short Term Variability: Present Alf Variability: Average (6-25) Contractions on Admission: 6-10 Minutes Apart Intensity: Mild Zaidi Scoring Tool (Modified) Dilation (cm): 1-2cm (1) Effacement (%): 51-79% (2) Descent/Station: -3 (0) Cervix Consistency: Medium(1) Cervix Position: Middle/Mid-Position (1) Add 1 point for: Each previous vaginal delivery (1) Zaidi Score: 7 Labs Laboratory Tests Test 08/09/23 19:30 Range/Units White Blood Count 9.3 4.3-11.0 10^3/uL Red Blood Count 3.72 L 3.80-5.11 10^6/uL Hemoglobin 8.8 L 11.5-16.0 g/dL Hematocrit 29 L 35-52 % Mean Corpuscular Volume 78 L 80-99 fL Mean Corpuscular Hemoglobin 24 L 25-34 pg Mean Corpuscular Hemoglobin Concent 30 L 32-36 g/dL Red Cell Distribution Width 18.4 H 10.0-14.5 % Platelet Count 374 130-400 10^3/uL Mean Platelet Volume 9.5 9.0-12.2 fL Immature Granulocyte % (Auto) 0 % Neutrophils (%) (Auto) 68 42-75 % Lymphocytes (%) (Auto) 22 12-44 % Monocytes (%) (Auto) 7 0-12 % Eosinophils (%) (Auto) 1 0-10 % Basophils (%) (Auto) 1 0-10 % Neutrophils # (Auto) 6.3 1.8-7.8 10^3/uL Lymphocytes # (Auto) 2.1 1.0-4.0 10^3/uL Monocytes # (Auto) 0.6 0.0-1.0 10^3/uL Eosinophils # (Auto) 0.1 0.0-0.3 10^3/uL Basophils # (Auto) 0.1 0.0-0.1 10^3/uL Immature Granulocyte # (Auto) 0.0 0.0-0.1 10^3/uL Urine Color YELLOW Urine Clarity CLEAR Urine pH 6 5-9 Urine Specific [place] 1.025 H 1.016-1.022 Urine Protein NEGATIVE NEGATIVE Urine Glucose (UA) NEGATIVE NEGATIVE Urine Ketones NEGATIVE NEGATIVE Urine Nitrite NEGATIVE NEGATIVE Urine Bilirubin NEGATIVE NEGATIVE Urine Urobilinogen 0.2 < = 1.0 MG/DL Urine Leukocyte Esterase TRACE H NEGATIVE Urine RBC (Auto) NEGATIVE NEGATIVE Urine RBC NONE /HPF Urine WBC RARE /HPF Urine Squamous Epithelial Cells 5-10 /HPF Urine Crystals NONE /LPF Urine Bacteria NEGATIVE /HPF Urine Casts NONE /LPF Urine Mucus NEGATIVE /LPF Urine Culture Indicated NO Syphilis Total Antibody Negative Negative OB - Assessment/Plan/Diagnosis Assessment Assessment: induction of labor (due to IUGR) Admission Dx 1. IUP at term 38w4d gestation 2. IUGR 3. Anemia Admission Status: Inpatient Order (span 2 midnights) Reason for Inpatient Admission: L&D Plan Plan: Induction Induction Method: per Misoprostol Protocol Reason for Induction: IUGR Other Plan -desires epidural -pitocin as needed -GBS prophylaxis TERRA CARRION MD Aug 10, 2023 06:40
[2023-08-10] MEDS ORDERED: OXYTOCIN DRIP PRE-MIX 500 ML IV SCH (06:45)
[2023-08-10] MEDS ORDERED: fentaNYL 2 mcg/ml BUPIVA 0.125 100 ML ONE (07:24)
[2023-08-10] MEDS ORDERED: fentaNYL INJECTION 100 MCG/2 ML VIAL ONE (07:54)
[2023-08-10] MEDS ORDERED: LIDOCAINE PF 2% 5 ML VIAL ONE (07:54)
[2023-08-10] MEDS ORDERED: fentaNYL 2 mcg/ml BUPIVA 0.125 100 ML EPI SCH (08:45)
[2023-08-10] MEDS ORDERED: ONDANSETRON INJECTION 4 MG/2 ML (SDV) IV PRN (08:45)
[2023-08-10] MEDS ORDERED: CATHETER FLUSH 10 ML SYR IV PRN (08:45)
[2023-08-10] MEDS ORDERED: METOCLOPRAMIDE INJ 10 MG/2 ML IV PRN (08:45)
[2023-08-10] MEDS ORDERED: NALOXONE 0.4 MG/ML 1 ML VIAL IV PRN ×2 (08:45→15:00)
[2023-08-10] MEDS ORDERED: diphenhydrAMINE INJ 50 MG/ML VIAL IV PRN (08:45)
[2023-08-10] MEDS ORDERED: LACTATED RINGERS 1,000 ML 1,000 ML IV ONE (08:45)
[2023-08-10] MEDS ORDERED: MEPIVACAINE 2% 50 ML VIAL ONE (13:50)
[2023-08-10] MEDS: OXYTOCIN DRIP PRE-MIX 500 ML IV SCH ×2 (14:17→14:45)
--- NOTE | 2023-08-10 14:58 | OB Labor & Delivery Record ---
L&D History History Expected Date of Delivery: Aug 20, 2023 Gestational Age in Weeks: 38 Hx : 3 Hx Para: 3 Complications Events: Routine care (Except for IUGR) Operative Indications (Cesarea: N/A-Vaginal Delivery Intrapartal Events: None L&D Stage1 Stage One Onset of Labor - Date: Aug 10, 2023 Onset of Labor - Time: 06:30 Monitors and Tracing Monitor Mode: Internal Heart Rate: 135 Monitor Accelerations: Uniform Monitor Decelerations: Variable Station: -1 Penitentiary Variability: Average (6-10) Short Term Variability: Present Presentation: Vertex Vital Signs VS - Last 72 Hours, by Label 08/09/23 08/09/23 08/09/23 08/09/23 20:24 20:54 21:43 21:55 Temp 37.2 Pulse 120 116 124 107 Resp 18 18 20 18 B/P (MAP) 136/79 (98) 132/71 (91) 130/81 (97) Pulse Ox 98 O2 Delivery Room Air Room Air Room Air Room Air 08/09/23 08/09/23 08/09/23 08/09/23 22:25 22:54 23:24 23:55 Pulse 106 101 104 103 Resp 18 18 18 18 B/P (MAP) 130/60 (83) 125/77 (93) 122/70 (87) 112/63 (79) O2 Delivery Room Air Room Air Room Air Room Air 08/10/23 08/10/23 08/10/23 08/10/23 01:55 03:26 04:40 04:56 Temp 36.7 Pulse 107 105 98 Resp 18 18 18 B/P (MAP) 136/81 (99) 140/72 (94) 122/62 (82) O2 Delivery Room Air Room Air Room Air 08/10/23 08/10/23 08/10/23 08/10/23 06:26 06:46 07:36 07:41 Pulse 104 97 97 104 Resp 18 18 18 18 B/P (MAP) 145/109 (121) 133/80 (97) 141/93 (109) 145/84 (104) O2 Delivery Room Air Room Air Room Air Room Air 08/10/23 08/10/23 08/10/23 08/10/23 07:44 07:47 07:50 07:53 Pulse 106 111 110 105 Resp 18 18 18 18 B/P (MAP) 156/77 (103) 159/83 (108) 151/76 (101) 137/74 (95) O2 Delivery Room Air Room Air Room Air Room Air 08/10/23 08/10/23 08/10/23 08/10/23 07:56 07:57 07:59 08:01 Pulse 97 103 102 120 Resp 18 18 18 18 B/P (MAP) 117/56 (76) 112/79 (90) 120/82 (95) 121/83 (96) Pulse Ox 99 99 98 O2 Delivery Room Air Room Air Room Air Room Air 08/10/23 08/10/23 08/10/23 08/10/23 08:03 08:04 08:07 08:12 Pulse 105 109 108 122 Resp 18 18 18 18 B/P (MAP) 121/83 (96) 121/86 (98) 127/87 (100) 129/76 (93) Pulse Ox 98 97 98 98 O2 Delivery Room Air Room Air Room Air Room Air 08/10/23 08/10/23 08/10/23 08/10/23 08:17 08:27 08:33 08:38 Pulse 118 116 110 104 Resp 18 18 18 18 B/P (MAP) 107/73 (84) 119/66 (83) 112/58 (76) 128/62 (84) Pulse Ox 98 98 97 98 O2 Delivery Room Air Room Air Room Air Room Air 08/10/23 08/10/23 08/10/23 08/10/23 08:42 08:48 08:53 09:12 Temp 36.4 Pulse 111 105 103 96 Resp 18 18 18 18 B/P (MAP) 143/77 (99) 126/67 (86) 117/62 (80) 116/64 (81) Pulse Ox 98 97 98 98 O2 Delivery Room Air Room Air Room Air Room Air 08/10/23 08/10/23 08/10/23 09:27 09:42 11:13 Temp 36.5 Pulse 99 107 95 Resp 18 18 18 B/P (MAP) 139/76 (97) 136/60 (85) 113/55 (74) Pulse Ox 98 96 99 O2 Delivery Room Air Room Air Room Air Signs of Distress by FHT Signs of Distress no Rupture of Membranes Spontaneous Ruture of Membrane: No Amniotic Membrane Rupture Time: 0630 Amniotic Membrane Fluid Desc.: Clear Induction/Anesthesia Epidural Cath Placement - Time: 0750 L&D Stage2 Stage Two Stage II Date: Aug 10, 2023 Stage II Time: 14:08 Monitors and Tracing Monitor Mode: Internal Heart Rate: 135 Monitor Accelerations: Uniform Monitor Decelerations: Early Penitentiary Variability: Average (6-10) Short Term Variability: Present Position: Left Occiput Anterior Presentation: Vertex Signs of Distress by FHT Signs of Distress no Cord Descript/Complications Cord Vessel Description: 3 Vessels Delivery Type Delivery Method: Spontaneous Vaginal Anterior Shoulder: Left Episiotomy/Perineal Laceration Laceraction(s)/Extensions: No Condition of Delivery 1 minute Comment: 8 5 minute Comment: 8 Condition of Infant Condition of : Living Exam: No Observed Abnormalities Resuscitation Resuscitation: N/A - Spontaneous Resp, Oxygen Blowby L&D Stage3 Stage Three Stage III Date: Aug 10, 2023 Stage III Time: 14:16 Pictocin Pitocin Administration mu/min: 4 Pitocin ml/hr: 4 Pitocin Administration Comment: 1201- PITOCIN INCREASED TO 4 ML/HR PER PROVIDER ORDER AND PITOCIN PROTOCOL Placenta Delivery Placenta Delivery: Spontaneous Delivery Summary Summary Estimated blood loss (mL): 150 Condition of Delivery Examined: Cervix Examined Post Hemorrhage: No Intervention Required none TERRA CARRION MD Aug 10, 2023 14:58
[2023-08-10] MEDS ORDERED: Tetanus/Diphtheria/Pertussis (Acell) ADULT Vaccine 0.5 ML IM ONE (15:00)
[2023-08-10] MEDS ORDERED: WITCH HAZEL(TUCKS) 40 EA JAR TOP PRN (15:00)
[2023-08-10] MEDS ORDERED: BENZOCAINE/MENTHOL (DERMOPLAST) 56 ML CAN TP PRN (15:00)
[2023-08-10] MEDS ORDERED: MEASLES, MUMPS, RUBELLA VACCINE (MMR) SQ ONE (15:00)
[2023-08-10] MEDS: ACETAMINOPHEN 500 MG TABLET PO SCH ×2 (16:27→22:07)
[2023-08-10] MEDS: IBUPROFEN 600 MG TABLET PO SCH ×2 (16:27→22:06)
[2023-08-10] MEDS ORDERED: CATHETER FLUSH 10 ML SYR IV SCH (22:00)
[2023-08-10] MEDS: DOCUSATE SODIUM 100 MG CAPSULE PO SCH (22:07)
[2023-08-11 02:45] VITALS: BP 112/63
[2023-08-11] MEDS: IBUPROFEN 600 MG TABLET PO SCH ×2 (03:54→11:03)
[2023-08-11] MEDS: ACETAMINOPHEN 500 MG TABLET PO SCH ×2 (03:54→11:04)
[2023-08-11 06:06] LABS: BASOPHILS # (AUTO) 0.1 10^3/uL (0.0-0.1); BASOPHILS % (AUTO) 1 % (0-10); EOSINOPHILS # (AUTO) 0.2 10^3/uL (0.0-0.3); EOSINOPHILS % (AUTO) 2 % (0-10); HEMATOCRIT 29 % (35-52); HEMOGLOBIN 8.5 g/dL (11.5-16.0); LYMPHOCYTES # (AUTO) 2.5 10^3/uL (1.0-4.0); LYMPHOCYTES % (AUTO) 28 % (12-44); MEAN CORPUSCULAR HEMOGLOBIN 23 pg (25-34); MEAN CORPUSCULAR HGB CONC 30 g/dL (32-36); MEAN CORPUSCULAR VOLUME 78 fL (80-99); MEAN PLATELET VOLUME 9.2 fL (9.0-12.2); MONOCYTES # (AUTO) 0.7 10^3/uL (0.0-1.0); MONOCYTES % (AUTO) 7 % (0-12); NEUTROPHILS # (AUTO) 5.6 10^3/uL (1.8-7.8); NEUTROPHILS % (AUTO) 62 % (42-75); PLATELET COUNT 311 10^3/uL (130-400)
[2023-08-11 06:25] VITALS: BP 134/89
[2023-08-11] MEDS: DOCUSATE SODIUM 100 MG CAPSULE PO SCH (11:03)
[2023-08-11 11:04] VITALS: BP 124/75
--- NOTE | 2023-08-11 12:39 | Anesthesia-Regional Post-Op ---
Regional Patient Condition Mental Status: Alert, Oriented x3 Circulation: Same as Pre-Op Headache: Absent Sensation: Full Recovery Motor Block: Absent Post Op Complications Complications None Follow Up Care/Instructions Patient Instructions None needed. Anesthesia/Patient Condition Patient is doing well, no complaints, stable vital signs, no apparent adverse anesthesia problems. No complications reported per nursing. MERVIN HERNANDEZ CRNA Aug 11, 2023 12:39
--- NOTE | 2023-08-11 15:56 | Discharge Inst-Women's Service ---
Discharge Inst-Women's Serv Depart Medication/Instructions New, Converted or Re-Newed RX: Other Instructions May take [id number] ibuprofen 200 mg tablets 2 or 3 every 6 hours if needed for cramps. Problems Reviewed?: Yes Consults/Follow Up Additional Follow Up: Yes (With myself at [facility] in 6 weeks) Activity Driving Instructions: No Driving for 1 Week Nothing Inside Vagina: No [place] (For 6 weeks) Diet Discharge Diet: Regular Diet Return to The Hospital For: As below Symptoms to Report to : Bleeding Excessive, Fever Over 101 Degrees F, Vaginal Discharge Foul, Dizziness/Fainting For Any Problems or Questions: Contact Your Physician TERRA CARRION MD Aug 11, 2023 15:56
--- NOTE | 2023-08-11 16:20 | Discharge Summary ---
Diagnosis/Chief Complaint Date of Admission Aug 09, 2023 at 19:07 Date of Discharge August 11, 2023 Admission Diagnosis Admission Diagnosis 1. Intrauterine at 38 weeks 3 days gestation 2. IUGR 3. Anemia iron deficiency Discharge Diagnosis 1. Intrauterine at 38 weeks 3 days gestation 2. IUGR 3. Anemia iron deficiency Chief Complaint/HPI Chief Complaint/HPI 32-year-old 3 now term 3 L3 female who initially presented to labor and delivery during the evening of August 09, 2023 for induction of labor due to IUGR. Patient has been receiving nonstress tests every week at [facility] over the past month. Also she has been having serial ultrasounds to check the weight of infant. The weight overall has been improving but due to the IUGR she was induced at 38 weeks 3 days gestation. GBS is positive Discharge Summary-OBS Procedures 1. Epidural per anesthesia 2. Spontaneous vaginal delivery Discharge Physical Examination Allergies: Coded Allergies: No Known Drug Allergies (Unverified , 02/17/10) Vitals & I&Os Vital Sign - Last 12Hours Date Time Temp Pulse Resp B/P (MAP) Pulse Ox O2 Delivery O2 Flow Rate FiO2 08/11/23 11:04 36.4 99 18 124/75 (91) 98 Room Air General Appearance: No Acute Distress Respiratory: Clear to Auscultation Cardiovascular: Regular Rate Abdominal: Soft (With uterus firm) Psych/Mental Status: Mental Status NL Hospital Course Was the Problem List Reviewed?: Yes patient was admitted during the evening of August 09, 2023 for induction of labor. 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 She had dilated to 3 cm by the morning when she underwent amniotomy with placement of scalp electrode. Fluid was noted to be clear. Strip remained reactive throughout the course of labor. She did require rest epidural and this was provided with good relief. Ultimately she went on to completion and delivered a term viable female with Apgars of 8 at 1 minute and 8 at 9 minutes. Following delivery she underwent routine care orders. She had no co mplications other than she was anemic. She was asymptomatic without having dizziness. Her hemoglobin was 8.5 in the morning of August 11 compared to admission of 8.8. She was tolerating a regular diet and ambulatory without any chest pain or shortness of breath. She did take iron twice daily along with vitamin. She was ready for dismissal during the afternoon of August 11, 2023. She will follow up with myself in 6 weeks Labs Laboratory Tests 08/11/23 05:59: White Blood Count 9.0, Red Blood Count 3.64L, Hemoglobin 8.5L, Hematocrit 29L, Mean Corpuscular Volume 78L, Mean Corpuscular Hemoglobin 23L, Mean Corpuscular Hemoglobin Concent 30L, Red Cell Distribution Width 18.2H, Platelet Count 311, Mean Platelet Volume 9.2, Immature Granulocyte % (Auto) 0, Neutrophils (%) (Auto) 62, Lymphocytes (%) (Auto) 28, Monocytes (%) (Auto) 7, Eosinophils (%) (Auto) 2, Basophils (%) (Auto) 1, Neutrophils # (Auto) 5.6, Lymphocytes # (Auto) 2.5, Monocytes # (Auto) 0.7, Eosinophils # (Auto) 0.2, Basophils # (Auto) 0.1, Immature Granulocyte # (Auto) 0.0 Discharge Instructions to patient/family Please see electronic discharge instructions given to patient. Discharge Medications Reviewed and agree with Discharge Medication list on patient's Discharge Instruction sheet TERRA CARRION MD Aug 11, 2023 16:20
== END 2023-08-11 16:45 | disposition home or self-care (01) | DRG 807 ==
LOC: LDRP 19:07
PROVIDERS: ADMIT Family Medicine; ATTEND Family Medicine
PROC: 3E0DXGC Introduction of Other Therapeutic Substance into Mouth and Pharynx, External Approach (ICD-10-PCS; 2023-08-09)
PROC: 10E0XZZ Delivery of Products of Conception, External Approach (ICD-10-PCS; principal; 2023-08-10)
DX: O36.5930 Maternal care for other known or suspected poor fetal growth, third trimester, not applicable or unspecified (principal); Z37.0 Single live birth; Z3A.38 38 weeks gestation of pregnancy; O99.02 Anemia complicating childbirth; D50.9 Iron deficiency anemia, unspecified; O99.824 Streptococcus B carrier state complicating childbirth
CPT/HCPCS: 36415; 81000; 85025; 86780; 86850; 86900; 86901